=== PATIENT | male | born 1940 | race Caucasian/White ===

== ENCOUNTER 2022-08-24 18:44 | Emergency (ER) | payer MEDICARE, OTHER, SELFPAY ==
--- NOTE | ~2022-08-24 | CT_ITS ---
EXAMINATION: CT brain wo con DATE: 08/24/2022 19:24 INDICATION: fall on thinners . TECHNIQUE: Computed tomography (CT) of the head was performed without intravenous contrast. The mA wa s adjusted according to patient size. Iterative reconstruction technique was employed. The dose-lengt h product was 681.00 mGy-cm. COMPARISON: None. FINDINGS: No acute intracranial hemorrhage or extra-axial fluid collection. No hydrocephalus, intraparenchymal mass, or herniation. Enlarged pituitary gland. No acute ischemic infarct. Unremarkable dural venous sinus attenuation. No acute osseous abnormality. The aerated spaces are clear. Mild atrophy and chronic white matter change. Atherosclerotic intracranial calcification. Bilateral l ens replacements. IMPRESSION: No acute intracranial process. Pituitary enlargement, consider nonemergent outpatient MR of the pituitary without and with contrast for further evaluation. Reviewed, dictated and finalized at location K. IMPRESSION: No acute intracranial process. Pituitary enlargement, consider nonemergent outpatient MR of the pituitary with out and with contrast for further evaluation.
[2022-08-24 18:45] VITALS: BP 130/83; PULSE 104; RESP 18; TEMP 36.4; O2SAT 96
[2022-08-24] MEDS: CELLULOSE OXIDIZED 2 x 14 INCH 1 PKT XX ×3 (19:22→20:52)
--- NOTE | 2022-08-24 19:57 | ED.GENADULT ---
HPI - General Adult General Chief complaint: Head Injury Stated complaint: eye lac Time Seen by Provider: 08/24/22 19:02 History of Present Illness HPI narrative: This is an 82-year-old male presenting ED after a fall. [place] he tripped over a board and struck his head on a boat. He has a small laceration to his left eyebrow. No loss of consciousness, no other injuries, no medical complaints at this time. He is on Plavix for coronary artery disease. No numbness tingling weakness any extremity pain Related Data Home Medications Medication Instructions Recorded Confirmed acetaminophen 650 mg 650 mg PO Q6H 02/01/19 01/29/22 tablet,extended release (Tylenol Arthritis Pain) amlodipine 5 mg-valsartan 160 mg 1 tablet PO DAILY 02/01/19 01/29/22 tablet calcium citrate 315 mg-vitamin D3 1 tablet PO DAILY 02/01/19 01/29/22 5 mcg (200 unit) tablet (Calcium Citrate + D) clopidogrel 75 mg tablet 75 mg PO DAILY 02/01/19 01/29/22 isosorbide dinitrate 30 mg tablet 30 mg PO DAILY 02/01/19 01/29/22 metoprolol tartrate 100 mg tablet See Rx Instructions .Route .COMPLEX 02/01/19 01/29/22 cetirizine 10 mg tablet (Zyrtec) See Rx Instructions PO DAILY PRN 08/02/19 01/29/22 [id number] C-Mn 500 See Rx Instructions PO DAILY 08/02/19 01/29/22 mg-400 mg capsule (Glucosamine Chondroitin Maximum Strength) finasteride 5 mg tablet 5 mg PO DAILY 11/03/19 01/29/22 Allergies Allergy/AdvReac Type Severity Reaction Status Date / Time No Known Allergies Allergy Verified 08/18/22 10:40 [facility] Past Medical History Medical History CAD (coronary artery disease) GERD (gastroesophageal reflux disease) Family History Family History Father Hypertension, Onset Age: 76 Family history of cardiovascular disease, Onset Age: 76 Mother Family history of cardiovascular disease, Onset Age: 68 Social History Social History Smoking status: Never smoker Alcohol intake: never Substance use: never Exam Narrative: APPEARANCE: No apparent distress. Head: atraumatic. EYES: EOMI, NOSE: Atraumatic NECK: Trachea midline RESPIRATORY: No increased rate of breathing CARDIOVASCULAR: RRR, ABDOMINAL: Non-distended MUSCULOSKELETAl: No obvious deformities NEURO: Alert.Cranial nerves 2-12 grossly intact. Sensation light touch, motor function cerebellar function intact for 4 extremities. Gait exam was normal. SKIN: laceration to the lateral side of the left eyebrow with PSYCHIATRIC: Normal affect Course Vital Signs Vital signs: Vital Signs Temperature 97.5 F L 08/24/22 18:45 Pulse Rate 104 H 08/24/22 18:45 Respiratory Rate 18 08/24/22 18:45 Blood Pressure 130/83 08/24/22 18:45 Pulse Oximetry 96 08/24/22 18:45 Oxygen Delivery Room Air 08/24/22 18:45 Temperature 97.5 F L 08/24/22 18:45 Pulse Rate 76 08/24/22 21:39 Respiratory Rate 16 08/24/22 21:39 Blood Pressure 137/84 08/24/22 21:39 Pulse Oximetry 97 08/24/22 21:39 Oxygen Delivery Room Air 08/24/22 18:45 Medical Decision Making [facility] Narrative Medical decision making narrative: -Presentation: 82-year-old male with a fall on Plavix. CT has been ordered. Direct pressure is being applied his wound. The bleeding. 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 IOP 10, no injury on fluorescein stain. -Discussion of Management/Consultants: non
[2022-08-24] MEDS: LIDO 1%/EPINEPHRINE 1:100,000 20 ML VIAL 10 ML INFILTRATE (21:02)
[2022-08-24 21:39] VITALS: BP 137/84; PULSE 76; RESP 16; O2SAT 97
[2022-08-24] MEDS: FLUORESCEIN SOD 1 MG/STRIP EACH EYE (21:56)
[2022-08-24] MEDS: TETRACAINE HCL 0.5% OPHTH SOLN 4 ML BTL 1 DROP EACH EYE (21:56)
== END 2022-08-24 22:30 | disposition home or self-care (01) ==
PROVIDERS: Emergency Provider Emergency Medicine; PCP Emergency Medicine
DX: S01.112A Laceration without foreign body of left eyelid and periocular area, initial encounter (principal); I25.10 Atherosclerotic heart disease of native coronary artery without angina pectoris; Z79.01 Long term (current) use of anticoagulants; W01.0XXA Fall on same level from slipping, tripping and stumbling without subsequent striking against object, initial encounter; Y92.89 Other specified places as the place of occurrence of the external cause
CPT/HCPCS: 70450; 99284

== ENCOUNTER 2024-10-06 10:51 | Inpatient (IN) | payer MEDICARE, OTHER, SELFPAY ==
[2024-10-06] VITALS (13 sets, daily range): BP systolic 90–148; BP diastolic 43–83; PULSE 69–103; RESP 16–24; TEMP 36.6–36.9; O2SAT 97–99; BMI 27.8
--- NOTE | ~2024-10-06 | CT_ITS ---
EXAMINATION: CT abdomen pelvis w con DATE: 10/06/2024 13:28 INDICATION: Groin mass with pain. Lifting injury. TECHNIQUE: Computed tomography (CT) of the abdomen and pelvis was performed with 100 cc Omnipaque 350 intravenous contrast. The dose-length product was 1384.86 mGy-cm. Automated exposure control and ite rative reconstruction technique were employed. COMPARISON: None. FINDINGS: There is dependent atelectasis. There is calcified granuloma left lower lobe. No significan t pleural or pericardial effusion. There are multiple liver cysts. There are gallstones. There are ca lcified granulomas of the spleen. The pancreas, adrenal glands are unremarkable. There are low-densit y lesions in the left kidney, most likely cysts. There is a low-density hypovascular mass emanating f rom the lower pole of the right kidney measuring approximately 9 x 12.3 x 7.6 cm. There is large amou nt of fluid surrounding the mass extending into the perinephric space, retroperitoneum and into the p aracolic gutter. This mass extends inferiorly and ends just proximal to a right inguinal hernia that contains fat. There is mild right renal caliectasis. There is a left total hip arthroplasty. Severe l umbar spondylosis. Status post median sternotomy for CABG. IMPRESSION: 1. Hypovascular right renal mass at the lower pole with surrounding hemorrhage, suspicious for renal cell carcinoma with associated hemorrhage. Differential diagnosis includes renal cell carcinoma, angelita l angiomyolipoma, hemorrhagic renal cyst or cystic neoplasm, metastatic disease to the kidney, sarcom a. Recommend urological consultation. Consider correlation with contrast-enhanced MRI. 2: Right inguinal hernia containing fat. 3: Gallstones. 4: Mild right hydronephrosis. Reviewed, dictated and finalized at location A. IMPRESSION: 1. Hypovascular right renal mass at the lower pole with surrounding hemorrhage, suspicious for renal cell carcinoma with associated hemorrhage. Differential d iagnosis includes renal cell carcinoma, renal angiomyolipoma, hemorrhagic renal cyst or cystic neoplasm, metastatic disease to the kidney, sarcoma. Recommend urological consultation. Consider correlation with contrast-enhanced MRI. 2: Right inguinal hernia containing fat. 3: Gallstones. 4: Mild right hydronephrosis.
--- OUTSIDE RECORDS SUMMARY | 2024-10-06 10:53 | XMS_ITS | Encounter Summary ---
Author Organization [facility] Healthcare Address [address] [place] [address] Care Team Providers Care General Manager In Training Name Role Phone Gunnar Bahena MD Primary Care Provide r Encounter Details Date Type Department Care Team (Late st Contact Info) Description 12/02/2023 Orders Only [facility] Health Information Management [address] [place] [id number] Scanning, Provider Social History Tobacco Use Types Packs/Day Years Used Date Smoking Tobacco: Never Smokeless Tobacco: Never Alcohol Use Standard Drinks/Week Comments No 0 (1 standard drink = 0.6 oz pur e alcohol) Sex and Gender Information Value Date Recorded Sex Assigned at Not on file 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 Gender Identity Not on file Sexual Orientation Not on file documented as of this encounter Plan of Treatment Not on file documented as of this encounter Procedures Procedure Name Priority Date/Time Associated Diagnosis Comments SCAN - LABS 12/02/2023 documented in this encounter Results * SCAN - LABS (12/02/2023) us Provider Scanning Final Result documented in this encounter Visit Diagnoses Not on filedocumented in this encounter Care Teams General Manager In Training Relationship Specialty Start Date End Date Gunnar Bahena MD [address] [place] [address] PCP - General 05/29/16 documented as of this encounter
--- OUTSIDE RECORDS SUMMARY | 2024-10-06 10:53 | XMS_ITS | Clinical Summary ---
Author Organization [facility] [address] [facility] [address] Address [address] [place] [address] Care Team Providers Care Form Setter Name Role Phone Gunnar Bahena MD Primary Care Provide r Allergies Active Allergy Reactions Criticality Noted Date Comments Aspirin Other (See comments) Low 12/29/2016 Gastric ulcer Medications tamsulosin (FLOMAX) 0.4 mg capsule,extended release 24hr take 1 capsule by oral route every day 1/2 hour following the same meal each day 0 0 3 Active cetirizine (ZyrTEC) 10 mg tablet take 1 tablet by oral route every day 0 0 3 Active metFORMIN (GLUCOPHAGE) 500 mg tablet take 1 Tablet by oral route 2 times every day with morning and evening meals [address] (PROTONIX) 20 mg EC tablet take 1 Tablet by oral route 2 times every day 90 1 6 Active atorvastatin (LIPITOR) 40 mg tablet take 1 tablet by oral route every day 0 0 3 Active calcium carbonate (CALCIUM 600 ORAL) Take 1 tablet by mouth daily. Active glucosamine-cedric droitin 500-400 mg tablet Take 1 tablet by mouth 2 (two) times a day Active acetaminophen ER (TYLENOL) 650 mg 8 hr tablet Take 1 tablet (650 mg total) by mouth every 8 (eight) hours as needed for pain Active finasteride (PROSCAR) 5 mg tablet TK 1 T PO D 0 Active metoprolol tartrate (LOPRESSOR) 50 mg immediate release tablet TAKE 1 TABLET(50 MG) BY MOUTH TWICE DAILY 180 tablet 3 4 Active isosorbide mononitrate ER (IMDUR) 30 mg 24 hr tablet TAKE 1 TABLET(30 MG) BY MOUTH DAILY 90 tablet 3 4 Active amlodipine-valsa rtan (EXFORGE) 5-160 mg per tablet TAKE 1 TABLET BY MOUTH DAILY 90 tablet 2 5 Active clopidogreL (PLAVIX) 75 mg tablet TAKE 1 TABLET(75 MG) BY MOUTH DAILY 90 tablet 2 5 Active Active Problems Problem Noted Date Diagnosed Date Pulmonary hypertension 03/27/2022 Gastroesophageal reflux disease without esophagi tis 07/21/2018 Coronary artery disease of n ative artery of [place] heart with stable angina pectoris 07/05/2017 Hyperlipidemia LDL goal <70 12/29/2016 History of bleeding ulcers 08/11/2016 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 Essential hypertension 05/15/2014 Overview (06/05/2016): Essential hypertension Adiposity 05/15/2014 Overview (06/05/2016): Obesity Resolved Problems Problem Noted Date Diagnosed Date Resolved Date Dyslipidemia 08/11/2016 03/21/2020 Encounters Date Type Department Care Team Description 08/08/2024 Orders Only [facility] Cardiology [address] [place] [address] Provider, MD Monik from Last 3 Months Surgical History Surgery Date Site/Laterality Comments CORONARY ARTERY BYPASS GRAFT Coronary Artery Bypass Graft HERNIA REPAIR hernia repair Medical History Medical History Date Comments Gastroesophageal reflux disease GERD Osteoarthritis Osteoarthritis Hx Other Medical BPH Hx Other Medical history of trig eminal neuralgia Hx Other Medical Osteoarthritis, trigeminal neuralgia, BPH, HTN, DL Hx Other Medical Seizure, GERD, sinusitis Family History Medical History Relation Name Comments Coronary artery disease Father 2 Tina nary Artery Disease; Coronary artery disease Mother 2 Tina nary Artery Disease; Relation Name Status Comments Father 1 Alive Father 2 Mother 1 Alive Mother 2 Social History Tobacco Use Types Packs/Day Years Used Date Smoking Tobacco: Never Smokeless Tobacco: Never Tobacco Cessation:Counseling Given: Not Answered Alcohol Use Standard Drinks/Week Comments No 0 (1 standard drink = 0.6 oz pur e alcohol) Sex and Gender Information Value Date Recorded Sex Assigned at Not on file 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 Gender Identity Not on file Sexual Orientation Not on file Obstetrics History Last Filed Vital Signs Vital Sign Reading Time Taken Comments Blood Pressure 130/88 05/10/2024 8:53 AM CDT Pulse 65 05/10/2024 8:53 AM CDT Temperature - - Respiratory Rate 16 08/11/2016 9:02 AM CDT Oxygen Saturation 96% 05/10/2024 8:53 AM CDT Inhaled Oxygen Concentration - - Weight 97.1 kg (214 lb) 05/10/2024 8:53 AM CDT Height 182.9 cm (6') 05/10/2024 8:53 AM CDT Body Mass Index 29.02 05/10/2024 8:53 AM CDT Plan of Treatment Health Maintenance Due Date Last Done Comments Depression Screening 1941 Fall Risk Assessment 1941 DTaP/Tdap/Td Vaccine (1 - Tdap) 1952 Hepatitis B Screening 1959 Zoster Vaccine (1 of 2) 1991 Well Visit 65+ 2006 Pneumococcal vaccine 65+ (2 of 2 - PPSV23) 02/27/2019 01/02/2019 Influenza Vaccine (#1) 2024 9, 12/01/2017, 12/24/2016, Additional history exists Procedures Procedure Name Priority Date/Time Associated Diagnosis Comments LIPID PANEL Routine 08/03/2024 4:23 PM CDT from Last 3 Months Results * (ABNORMAL) Lipid panel (08/03/2024 4:23 PM CDT) SCRIBED Cholesterol, Total 102 30 - 199 mg/dL [facility] SCRIBED Triglycerides 92 <=149 mg/dL [facility] SCRIBED HDL 36(A) >=40 mg/dL [facility] SCRIBED LDL 48 <=129 mg/dL [facility] Scribed Non-HDL Cholesterol [facility] Comment:Not performed by lab . SCRIBED Total Cholesterol/HDL Ratio 102 NONE [facility] Blood us Historical Provider LAB BLOOD ORDERABLES Edit ed Result - Final [facility] from Last 3 Months Insurance MEDICARE [facility] MEDICARE [facility] Care Teams Form Setter Relationship Specialty Start Date End Date Gunnar Bahena MD [address] [place], [place] [id number] PCP - General 05/29/16
--- NOTE | 2024-10-06 11:31 | ED.LOWEXIN ---
HPI - Extremity Injury (Lower) General Chief Complaint: Extremity Injury, Lower Stated Complaint: groin pain Time Seen by Provider: 10/06/24 11:20 Source: patient and RN notes reviewed Mode of arrival: ambulatory Limitations: no limitations History of Present Illness HPI Narrative: 84-year-old male presents to the ER complaining of right groin pain for 2 days. Patient said over the weekend he was lifting a cooler out of a boat does not believe that he injured himself at that time. Since then eyes developed right groin pain that is worse with sitting up or walking around. Patient says the pain subsides when he lies flat. Patient denies any urinary symptoms, fevers, body aches, chills, nausea, vomiting, diarrhea, bloody stools, or any other symptoms. Related Data Home Medications ?Medication ?Instructions ?Recorded ?Confirmed ?Last Taken ?Type amlodipine 5 mg-valsartan 160 mg 1 tablet PO DAILY 02/01/19 10/06/24 Unknown History tablet calcium 315 mg (as 1 tablet PO DAILY 02/01/19 10/06/24 Unknown History citrate)-vitamin D3 5 mcg (200 unit) tablet (Calcium Citrate + D) clopidogrel 75 mg tablet 75 mg PO DAILY 02/01/19 10/06/24 10/05/24 History isosorbide dinitrate 30 mg tablet 30 mg PO HS 02/01/19 10/06/24 10/05/24 History metoprolol tartrate 100 mg tablet 50 mg PO Q12H 02/01/19 10/06/24 Unknown History cetirizine 10 mg tablet (Zyrtec) 10 mg PO 08/02/19 10/06/24 10/05/24 History [id number] C-Mn 500 See Rx Instructions PO DAILY 08/02/19 10/06/24 10/05/24 History mg-400 mg capsule (Glucosamine Chondroitin Maximum Strength) finasteride 5 mg tablet 5 mg PO 11/03/19 10/06/24 10/05/24 History atorvastatin 40 mg tablet 40 mg PO QPM 10/06/24 10/06/24 10/05/24 History pantoprazole 40 mg tablet,delayed 40 mg PO 10/06/24 10/06/24 10/05/24 History release tamsulosin 0.4 mg capsule 0.4 mg PO QPM 10/06/24 10/06/24 10/05/24 History Allergies Allergy/AdvReac Type Severity Reaction Status Date / Time aspirin AdvReac Intermediate Abdominal Verified 10/06/24 16:08 Pain Review of Systems Review of Systems: CONSTITUTIONAL: Denies fever, chills, or sweats. EYES: Denies visual changes, redness, or discharge. ENT: Denies rhinorrhea, congestion, sore throat, or otalgia. CARDIOVASCULAR: Denies chest pain, palpitations, or edema. RESPIRATORY: Denies cough or dyspnea. GASTROINTESTINAL: Denies abdominal pain, nausea, vomiting, or diarrhea. Positive for groin pain. GENITOURINARY: Denies dysuria or hematuria. SKIN: Denies rash or itching. MUSCULOSKELETAL: Denies back pain, joint pain, or myalgia. NEUROLOGIC: Denies headache, numbness, or weakness. PSYCHIATRIC: Denies anxiety or depression. All other systems reviewed are negative, except as documented in HPI. PENDING SALE TO [facility] Past Medical History Medical History SOB (shortness of breath) Gastric ulcer due to nonsteroidal antiinflammatory drug (NSAID) therapy Atherosclerosis of coronary artery bypass graft(s) without angina pectoris Chronic pain of both shoulders Vitamin D deficiency PUD (peptic ulcer disease) Primary osteoarthritis of both hips Polyosteoarthritis, unspecified Pain in right shoulder Other chronic pain Need for pneumococcal vaccine Atypical mole Visit for suture removal URI with cough and congestion GERD (gastroesophageal reflux disease) CAD (coronary artery disease) Family History Family History Father Hypertension, Onset Age: 76 Family history of cardiovascular disease, Onset Age: 76 Mother Family history of cardiovascular disease, Onset Age: 68 Social History Social History Smoking status: Never smoker Second hand tobacco smoke exposure: Yes Alcohol intake: former Substance use: never Substance use type: does not use Lack of Transportation: No Lack of Food: Never True Current Housing: I Do Not Have Housing Concerned About Future Housing: No Difficulty Paying Gas/Electric Bills: No Difficulty Paying for Meds: No Currently Unemployed: No Education: High School Diploma/GED Difficulty w/ Childcare or Family Care: No Spiritual care concerns: No Comments At the time of my signature, I reviewed and agree with the nursing past medical, surgical, social, and family history. There is no relevant family history pertinent to the patient complaint. Exam Narrative: GENERAL: This is a well-nourished, well-developed adult, in no apparent distress. They are non ill-appearing, nontoxic appearing. HEAD: normocephalic, atraumatic. EYES: Sclera clear/white. Conjunctiva normal. Vision is grossly intact. Extraocular movements intact EARS: External ears normal, Hearing grossly intact. NOSE: External nose normal THROAT: Mucous membranes moist, NECK: Neck supple, CARDIOVASCULAR: Regular rate and rhythm without murmurs, gallops, or rubs. RESPIRATORY: Clear to auscultation. Breath sounds equal bilaterally. No wheezes, rales, or rhonchi. GASTROINTESTINAL: Abdomen soft, tenderness to palpation right lower pelvis suprapubic region. Nondistended. Bowel sounds are active. No hepato-splenomegaly, or palpable masses. No guarding. There is swelling to the right groin. No bruising. SKIN: warm, Dry, intact with no suspicious lesions or rash, good texture and turgor. NEURO: awake, alert, and oriented to person, place and time. There were no obvious focal neurologic abnormalities. EXTREMITIES: No joint tenderness, effusion, or edema noted. Course Course Emergency Course: Portions of this record may have been created with voice recognition software Vital Signs Vital signs: Vital Signs Temperature 98.0 F 10/06/24 10:59 Pulse Rate 69 10/06/24 10:59 Respiratory Rate 18 10/06/24 10:59 Blood Pressure 148/76 H 10/06/24 10:59 Pulse Oximetry 98 10/06/24 10:59 Oxygen Delivery Room Air 10/06/24 10:59 Temperature 98.4 F 10/07/24 07:57 Pulse Rate 67 10/07/24 07:57 Respiratory Rate 20 10/07/24 07:57 Blood Pressure 121/69 10/07/24 07:57 Pulse Oximetry 97 10/07/24 07:57 Oxygen Delivery Room Air 10/07/24 03:57 Reviewed MDM - Extremity Injury (Lower) MDM Narrative Medical decision making narrative: Patient may have possible hernia. Will obtain imaging and lab work to assess his groin pain. Patient has elevated bilirubin. Hemoglobin 9.9. However unable to compare hemoglobin to previous lab work. Urine negative for any signs infection, no blood in urine. 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 Patient hemodynamically stable. Spoke with Dr. Sebastian from Urology who recommends observation to monitor hemoglobin and hematocrit, as he believes there is a low suspicion for active hemorrhage of the renal cell carcinoma, and he will see the patient in the hospital and will have a follow-up outpatient from there. Called hospitalist and spoke with nurse practitioner Kareen who agrees to admit patient to the IMU. Differential Diagnosis Differential diagnosis: Likely other (Hernia, hematoma, incarcerated hernia, appendicitis) Lab Data 10/07/24 06:12 10/07/24 06:12 Labs: Lab Results 10/06/24 10/06/24 Range/Units 11:40 11:48 WBC 9.0 (4.5-10.0) K/mm3 RBC 3.11 L (4.6-6.20) M/mm3 Hgb 9.9 L (14.0-18.0) g/dL Hct 30.0 L (42.0-52.0) % MCV 96.5 (80-100) fl MCH 31.8 (26-34) pg MCHC 33.0 (32-36) g/dl RDW 13.8 (11.5-14.5) % Plt Count 188 (150-375) k/mm3 MPV 9.7 (7.4-10.4) fl Immature Gran % (Auto) 0.8 H (0-0.5) % Neut % (Auto) 80.2 H (45.5-73.1) % Lymph % (Auto) 6.1 L (18.3-44.2) % Emery % (Auto) 12.2 H (2.6-8.5) % Eos % (Auto) 0.3 (0-4.4) % Baso % (Auto) 0.4 (0.2-1.2) % Lymph # (Auto) 0.55 L (0.9-3.2) K/mm3 Emery # (Auto) 1.1 H (0.1-0.6) K/mm3 Eos # (Auto) 0.0 (0-0.3) K/mm3 Baso # (Auto) 0.0 (0.0-0.1) K/mm3 Abs Immat Gran (auto) 0.07 H (0.00-0.031) K/mm3 Absolute Neuts (auto) 7.2 H (1.3-6.7) K/mm3 Absolute Nucleated RBC 0.000 (0.0-0.012) K/mm3 Nucleated RBC % 0.0 (0.0-0.2) % Sodium 135 L (137-145) mmol/L Potassium 4.0 (3.4-5.0) mmol/L Chloride 102 (98-107) mmol/L Carbon Dioxide 25 (22-30) mmol/L Anion Gap 8 (4-12) mmol/L BUN 20 (9-20) mg/dL Creatinine 1.15 (0.7-1.3) mg/dL Estim Creat Clear Calc 60 ml/min Estimated GFR > 60 (59 - ) Glucose 123 H (65-110) mg/dL Calcium 8.6 (8.4-10.2) mg/dL Total Bilirubin 3.4 H (0.2-1.3) mg/dL AST 21 (17-59) U/L ALT 12 (6-50) U/L Alkaline Phosphatase 50 (38-126) U/L Total Protein 6.1 L (6.3-8.2) g/dL Albumin 3.7 (3.5-5.1) g/dL Urine Color Yellow (Yellow) Urine Appearance Clear (Clear) Urine pH 5.5 (5.0-9.0) Ur Specific [place] 1.012 (1.001-1.035) Urine Protein Negative (Negative) mg/dL Urine Glucose (UA) Negative (Negative) mg/dL Urine Ketones Negative (Negative) mg/dL Ur Blood (Man) Negative (Negative) Urine Nitrate Negative (Negative) Urine Bilirubin Negative (Negative) Urine Urobilinogen 0.2 (<2.0) mg/dL Leukocyte Esterase Rfl Negative (Negative) MARY JO/UL Imaging Data Radiologist's impression: ITS Impressions Abdomen/Pelvis CT 10/06/24 13:34 IMPRESSION: 1. Hypovascular right renal mass at the lower pole with surrounding hemorrhage, suspicious for renal cell carcinoma with associated hemorrhage. Differential diagnosis includes renal cell carcinoma, renal angiomyolipoma, hemorrhagic renal cyst or cystic neoplasm, metastatic disease to the kidney, sarcoma. Recommend urological consultation. Consider correlation with contrast-enhanced MRI. 2: Right inguinal hernia containing fat. 3: Gallstones. 4: Mild right hydronephrosis. Critical Care Time Critical Care Time Critical Care Time: No Discharge Plan Discharge Clinical Impression: Hernia, inguinal, right, Hydronephrosis of right kidney, Gallstones Renal cell carcinoma Qualifiers: Laterality: right Qualified Code(s): C64.1 - Malignant neoplasm of right kidney, except renal pelvis Patient Disposition: Still a Patient Condition: Stable Time of Disposition: 14:39
[2024-10-06 12:03] LABS: Add Urine Microscopic? NO; Appearance Urine Clear (Clear); Glucose Urine UA Negative (Negative); Leukocyte Esterase Ur Negative LEU/UL (Negative); Nitrate Urine Negative (Negative); Specific Grav Ur 1.012 (1.001-1.035)
[2024-10-06 12:06] LABS: Hematocrit 30.0 % (42.0-52.0); Hemoglobin 9.9 g/dL (14.0-18.0); Immature Granulocyte Percent A 0.8 % (0-0.5); Lymphocytes Absolute Auto 0.55 K/mm3 (0.9-3.2); Mean Corpuscular HGB Conc 33.0 g/dl (32-36); Mean Corpuscular Hemoglobin 31.8 pg (26-34); Mean Corpuscular Volume 96.5 fl (80-100); Nucleated Red Blood Cells Absolute Auto 0.000 K/mm3 (0.0-0.012); Nucleated Red Blood Cells Perc 0.0 % (0.0-0.2); Platelet Count Result 188 k/mm3 (150-375); Red Blood Count 3.11 M/mm3 (4.6-6.20); White Blood Count 9.0 K/mm3 (4.5-10.0)
[2024-10-06 12:14] LABS: Alanine Aminotransferase 12 U/L (6-50); Albumin Level 3.7 g/dL (3.5-5.1); Alkaline Phosphatase 50 U/L (38-126); Anion Gap 8 mmol/L (4-12); Aspartate Amino Transferase 21 U/L (17-59); Bilirubin,Total 3.4 mg/dL (0.2-1.3); Blood Urea Nitrogen 20 mg/dL (9-20); Calcium 8.6 mg/dL (8.4-10.2); Carbon Dioxide 25 mmol/L (22-30); Chloride 102 mmol/L (98-107); Estimated CRCL calculation 60 ml/min; Estimated Glomerular Filt Rate > 60; Glucose 123 mg/dL (65-110); Potassium 4.0 mmol/L (3.4-5.0); Sodium 135 mmol/L (137-145); Total Protein 6.1 g/dL (6.3-8.2)
--- OUTSIDE RECORDS SUMMARY | 2024-10-06 12:22 | XMS_ITS ---
Author Organization Unknown ENCOUNTERS Encounter Performer Location Date Diagnosis Diagnosis Status Emergency [place] [address] [place] [id number] VAISHALI *Note: Encounters from your own facility or health system may be excluded. Allergies, Adverse Reactions, Alerts Allergen Type Severity Identification Date Medications Name Date Quantity Days Supplied GPI Number
--- OUTSIDE RECORDS SUMMARY | 2024-10-06 12:22 | XMS_ITS | Clinical Summary ---
Author Organization [facility] [address] [facility] [address] Address [address] [place] [address] Care Team Providers Care Leadership Program Internship Name Role Phone Gunnar Bahena MD Primary [...] artery disease of n ative artery of [place] heart with stable angina pectoris 07/05/2017 Hyperlipidemia LDL goal <70 12/29/2016 History of bleeding ulcers 08/11/2016 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 Essential hypertension 05/15/2014 Overview (06/05/2016): Essential hypertension Adiposity 05/15/2014 Overview (06/05/2016): Obesity Resolved Problems Problem Noted Date Diagnosed Date Resolved Date Dyslipidemia 08/11/2016 03/21/2020 Encounters Date Type Department Care Team Description 08/08/2024 Orders Only [facility] Cardiology [address] [place] [address] Provider, MD Monik from Last [...] on file 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
--- OUTSIDE RECORDS SUMMARY | 2024-10-06 12:22 | XMS_ITS | Encounter Summary ---
Author Organization [facility] Healthcare Address [address] [place] [address] Care Team Providers Care Magnetic Prospecting Operator Name Role Phone Gunnar Bahena MD Primary Care Provide r Encounter Details Date Type Department Care Team (Late st Contact Info) Description 12/02/2023 Orders Only [facility] Health Information Management [address] [place] [id number] Scanning, Provider Social History Tobacco Use Types Packs/Day Years Used Date Smoking Tobacco: Never Smokeless Tobacco: Never Alcohol Use Standard Drinks/Week Comments No 0 (1 standard drink = 0.6 oz pur e alcohol) Sex and Gender Information Value Date Recorded Sex Assigned at Not on file 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
[2024-10-06] MEDS: fentaNYL CITRATE INJ (*CRX) 100 MCG/2 ML VIAL 50 MCG IV PUSH (14:24)
[2024-10-06 14:47] LABS: INR 1.2; Partial Thromboplastin Time 30.1 Seconds (22.3-36.8); Prothrombin Time 14.7 Seconds (11.1-14.7)
--- NOTE | 2024-10-06 15:14 | P.HP_ITS ---
H&P: HPI History of Present Illness Date/Time: 10/06/24 15:14 Chief Complaint: Right groin pain Narrative: 84-year-old male past medical history of gastric ulcer, chronic pain, and CAD presents the hospital with right groin pain. Patient complains of his hernia hurting him so he came into the emergency room. Patient states that last weekend he lifted a heavy cooler and may have over exerted himself. He states that now he has right groin pain whenever he walks or does a lot activities. He states that lying in better after pain meds he has no pain. Patient denies hematuria, blood in his stool nausea vomiting lightheadedness. Patient has no complaints Lab work in the ED shows hemoglobin of 9.9, no prior hemoglobin to compare to, sodium of 135, glucose of 123, total bili of 3.4, UA negative for infection. Abdomen pelvis CT show hypovascular right renal mass at the lower pole with surrounding hemorrhage, suspicious for renal cell carcinoma with associated hemorrhage measuring approximately 9 x 12.3 x 7.6 cm, pre inguinal hernia containing fat, gallstones, and mild right hydronephrosis. Review of Systems Review of Systems: 12 systems were reviewed and are negativ e except for as per HPI. [facility] Past Medical History Medical History SOB (shortness of breath) Gastric ulcer due to nonsteroidal antiinflammatory drug (NSAID) therapy Atherosclerosis of coronary artery bypass graft(s) without angina pectoris Chronic pain of both shoulders Vitamin D deficiency PUD (peptic ulcer disease) Primary osteoarthritis of both hips Polyosteoarthritis, unspecified Pain in right shoulder Other chronic pain Need for pneumococcal vaccine Atypical mole Visit for suture removal URI with cough and congestion GERD (gastroesophageal reflux disease) CAD (coronary artery disease) Family History Family History Father Hypertension, Onset Age: 76 Family history of cardiovascular disease, Onset Age: 76 Mother Family history of cardiovascular disease, Onset Age: 68 Social History Social History Smoking status: Never smoker Second hand tobacco smoke exposure: Yes Alcohol intake: former Substance use: never Substance use type: does not use Lack of Transportation: No Lack of Food: Never True Current Housing: I Do Not Have Housing Concerned About Future Housing: No Difficulty Paying Gas/Electric Bills: No Difficulty Paying for Meds: No Currently Unemployed: No Education: High School Diploma/GED Difficulty w/ Childcare or Family Care: No Spiritual care concerns: No Meds Home Medications and Allergies Home Medications ?Medication ?Instructions ?Recorded ?Confirmed ?Type amlodipine 5 mg-valsartan 160 mg 1 tablet PO DAILY 02/01/19 10/06/24 History tablet calcium 315 mg (as 1 tablet PO DAILY 02/01/19 10/06/24 History citrate)-vitamin D3 5 mcg (200 unit) tablet (Calcium Citrate + D) clopidogrel 75 mg tablet 75 mg PO DAILY 02/01/19 10/06/24 History isosorbide dinitrate 30 mg tablet 30 mg PO HS 02/01/19 10/06/24 History metoprolol tartrate 100 mg tablet 50 mg PO Q12H 02/01/19 10/06/24 History cetirizine 10 mg tablet (Zyrtec) 10 mg PO HS 08/02/19 10/06/24 History [id number] C-Mn 500 See Rx Instructions PO DAILY 08/02/19 10/06/24 History mg-400 mg capsule (Glucosamine Chondroitin Maximum Strength) finasteride 5 mg tablet 5 mg PO HS 11/03/19 10/06/24 History metformin 500 mg tablet See Rx Instructions .Route 02/18/24 10/06/24 Rx .COMPLEX #90 tabs atorvastatin 40 mg tablet 40 mg PO QPM 10/06/24 10/06/24 History pantoprazole 40 mg tablet,delayed 40 mg PO HS 10/06/24 10/06/24 History release tamsulosin 0.4 mg capsule 0.4 mg PO QPM 10/06/24 10/06/24 History Allergies Allergy/AdvReac Type Severity Reaction Status Date / Time aspirin AdvReac Intermediate Abdominal Verified 10/06/24 16:08 Pain Vital Signs Vital Signs - 24 hr 10/06/24 10:59 10/06/24 14:04 Temperature 98.0 F Pulse Rate 69 77 Respiratory Rate 18 16 Blood Pressure 148/76 H 142/83 H Pulse Oximetry 98 98 Oxygen Delivery Room Air Exam Narrative: General: well appearing, appears stated age. HEENT: normocephalic, atraumatic. Mucous membranes moist. EOMI, PERRLA, bilateral sclera anicteric, no conjunctival injection. Neck supple without JVD, lymphadenopathy, or bruit. Respiratory: clear to ascultation bilaterally. No rales/rhonic/wheezes. Cardiovascular: Regular rate and rhythm, normal S1-S2 upon ascultation. No murmurs, rubs, or clicks. PMI is nondisplaced, capillary refill less than 3 second. Abdomen: Soft, round, no pulsatile masses, nondistended and nontender. No rebound, no guarding. No CVA tenderness, no hepatosplenomegaly. Bowel sounds present to all four quadrants. No high pitch or tinkling sounds, resonant to percussion. Extremities: No cyanosis, clubbing, or edema present. Pulses are palpable 2/2. Active ROM to all four extremities. Neuro: Alert and orientated x 4. PERRLA. Cranial nerves 2-12 intact without focal deficit. Skin: Warm, dry, and intact, without rash, erythema, or lesion. Psych: pleasant, cooperative, normal speech, normal affect, no hallucinations, no dysarthia H&P: Results Labs Labs: Short CBC 10/06/24 Range/Units 11:40 WBC 9.0 (4.5-10.0) K/mm3 Hgb 9.9 L (14.0-18.0) g/dL Hct 30.0 L (42.0-52.0) % Plt Count 188 (150-375) k/mm3 BMP 10/06/24 11:40 Sodium 135 L Potassium 4.0 Chloride 102 Carbon Dioxide 25 BUN 20 Creatinine 1.15 Glucose 123 H Calcium 8.6 Liver Function 10/06/24 Range/Units 11:40 Total Bilirubin 3.4 H (0.2-1.3) mg/dL AST 21 (17-59) U/L ALT 12 (6-50) U/L Alkaline Phosphatase 50 (38-126) U/L Albumin 3.7 (3.5-5.1) g/dL Urine 10/06/24 Range/Units 11:48 Urine Color Yellow (Yellow) Urine Appearance Clear (Clear) Urine pH 5.5 (5.0-9.0) Ur Specific [place] 1.012 (1.001-1.035) Urine Protein Negative (Negative) mg/dL Urine Glucose (UA) Negative (Negative) mg/dL Assessment and Plan Assessment and plan (1) Acute blood loss anemia: Code(s): D62 - Acute posthemorrhagic anemia Status: Acute Assessment and Plan: Hypovascular right renal mass at the lower pole with surrounding hemorrhage, suspicious for renal cell carcinoma with associated hemorrhage measuring approximately 9 x 12.3 x 7.6 cm. Likely injury from last weekend and not still actively bleeding. Hemoglobin q.6 Transfuse for hemoglobin less than 7 or symptomatic Type and screen Okay for diet (2) Hematoma: Code(s): T14.8XXA - Other injury of unspecified body region, initial encounter Status: Acute Assessment and Plan: Intraperitoneal hematoma seen on CT likely due to renal cell carcinoma Likely injury from last weekend and not still actively bleeding. See plan above (3) Renal cell carcinoma: Qualifiers: Laterality: right Qualified Code(s): C64.1 - Malignant neoplasm of right kidney, except renal pelvis Code(s): C64.9 - Malignant neoplasm of unspecified kidney, except renal pelvis Status: Acute Assessment and Plan: Urology consulted Urology does not believe that the patient is still currently bleeding, states that the patient can be monitored overnight for hemoglobin and then discharged in the morning if there is no drop in hemoglobin. If there is a drop in hemoglobin overnight then the patient can go to IR. Patient will follow-up outpatient with Urology to determine when is best for surgery. (4) HTN (hypertension): Code(s): I10 - Essential (primary) hypertension Status: Acute Assessment and Plan: Hold antihypertensive medications tonight (5) CAD (coronary artery disease): Code(s): I25.10 - Atherosclerotic heart disease of [place] coronary artery without angina pectoris Status: Acute Assessment and Plan: Hold Plavix Continue isosorbide (6) Diabetes mellitus: Qualifiers: Diabetes mellitus complication status: without complication Diabetes mellitus chcf insulin use: without termite technician use Diabetes mellitus type: type 2 Qualified Code(s): E11.9 - Type 2 diabetes mellitus without complications Code(s): E11.9 - Type 2 diabetes mellitus without complications Status: Acute Assessment and Plan: Hold metformin while patient was hospital in case he needs contrast Accu-Cheks a.c. HS Low-dose SSI (7) Hydronephrosis of right kidney: Code(s): N13.30 - Unspecified hydronephrosis Status: Acute Assessment and Plan: Urology consulted (8) BPH (benign prostatic hyperplasia): Code(s): N40.0 - Benign prostatic hyperplasia without lower urinary tract symptoms Status: Acute Assessment and Plan: Continue home medication Quality VTE Prophylaxis VTE prophylaxis: mechanical ordered If No VTE Prophylaxis Answer both mechanical and pharmacologic: Reason no pharmacologic proph: medical contraindication Hospitalist MIPS Advance Care Plan I have confirmed that the patient's Advanced Care Plan is present, code status is documented, or surrogate decision maker is listed in patient medical record.: Yes Medication Reconciliation I have utilized all available resources to obtain, update and review the patients current medications (includes all prescriptions, OTC, herbals, cannabis, and nutritional supplements).: Yes
[2024-10-06] MEDS: HYDROcodone/acetaminophen (*CRX) 5-325 MG TABLET 1 TAB PO (15:46)
--- NOTE | 2024-10-06 15:56 | ADMGEN ---
This patient, Jesse Churchill, was admitted to IMU Room 211-01 at approximately 1550. Patient/family oriented to hospital policies and general routines including ID bracelet, bed and alarms, visiting hours, pain management, procedures, bathroom and other care routines, personal items, smoking policy, room service/diet, and visiting hours. Information on how to activate the Rapid Response Team has been discussed. Patient/Family are encouraged to report perceived risks to care and to ask questions if they do not understand what they are told or what they should do.
--- NOTE | 2024-10-06 16:51 | P.CONUR_ITS ---
Assessment and Plan Assessment and plan (1) Hematoma: Code(s): T14.8XXA - Other injury of unspecified body region, initial encounter Status: Acute (2) Renal mass: Code(s): N28.89 - Other specified disorders of kidney and ureter Status: Acute (3) Neoplasm of kidney: Code(s): D49.519 - Neoplasm of unspecified behavior of unspecified kidney Status: Acute (4) Renal hematoma: Code(s): S37.019A - Minor contusion of unspecified kidney, initial encounter Status: Acute Plan Has been admitted to the hospital service for monitoring of his hemoglobin hematocrit. If drops or he becomes unstable procedure of choice would be embolization. I believe this is unlikely given his overall clinical picture at this point. He appears quite stable. If hemoglobin hematocrit remained stable can likely be discharged home. He will need workup for the renal mass. Likelihood is there is underlying renal mass such as renal cell carcinoma. Discussed with patient he may ultimately require nephrectomy. We will follow along Urology Consult Note HPI Date Seen: 10/06/24 Requesting Physician: Phu Aguilar MD Primary Care Provider: Gunnar Bahena MD Consult Narrative Narrative: Jesse Churchill is a 84 year old male who appears younger and healthier than his stated age. He was doing some heavy lifting approximately 1 week ago and felt he might have hurt himself. He noted groin pain and thought he had an inguinal hernia. He initially sought care here in the emergency room. He underwent a CT scan which showed a hematoma around the kidney likely secondary to an underlying renal mass. He does not complain of flank pain. He has no visible blood in the urine. He is not complaining of dizziness or cardiovascular symptoms. Blood counts were done and documented in the chart. There is no baseline hemoglobin hematocrit to compare. He is being admitted for follow-up overnight to monitor the there is no ongoing hemorrhage. Will undoubtedly need further workup for renal mass once acute situation resolved PMFSH Past Medical History Medical History SOB (shortness of breath) Gastric ulcer due to nonsteroidal antiinflammatory drug (NSAID) therapy Atherosclerosis of coronary artery bypass graft(s) without angina pectoris Chronic pain of both shoulders Vitamin D deficiency PUD (peptic ulcer disease) Primary osteoarthritis of both hips Polyosteoarthritis, unspecified Pain in right shoulder Other chronic pain Need for pneumococcal vaccine Atypical mole Visit for suture removal URI with cough and congestion GERD (gastroesophageal reflux disease) CAD (coronary artery disease) Family History Family History Father Hypertension, Onset Age: 76 Family history of cardiovascular disease, Onset Age: 76 Mother Family history of cardiovascular disease, Onset Age: 68 Social History Social History Smoking status: Never smoker Second hand tobacco smoke exposure: Yes Alcohol intake: former Substance use: never Substance use type: does not use Lack of Transportation: No Lack of Food: Never True Current Housing: I Do Not Have Housing Concerned About Future Housing: No Difficulty Paying Gas/Electric Bills: No Difficulty Paying for Meds: No Currently Unemployed: No Education: High School Diploma/GED Difficulty w/ Childcare or Family Care: No Spiritual care concerns: No Meds Home Medications and Allergies Home Medications ?Medication ?Instructions ?Recorded ?Confirmed ?Type amlodipine 5 mg-valsartan 160 mg 1 tablet PO DAILY 02/01/19 10/06/24 History tablet calcium 315 mg (as 1 tablet PO DAILY 02/01/19 10/06/24 History citrate)-vitamin D3 5 mcg (200 unit) tablet (Calcium Citrate + D) clopidogrel 75 mg tablet 75 mg PO DAILY 02/01/19 10/06/24 History isosorbide dinitrate 30 mg tablet 30 mg PO HS 02/01/19 10/06/24 History metoprolol tartrate 100 mg tablet 50 mg PO Q12H 02/01/19 10/06/24 History cetirizine 10 mg tablet (Zyrtec) 10 mg PO HS 08/02/19 10/06/24 History [id number] C-Mn 500 See Rx Instructions PO DAILY 08/02/19 10/06/24 History mg-400 mg capsule (Glucosamine Chondroitin Maximum Strength) finasteride 5 mg tablet 5 mg PO HS 11/03/19 10/06/24 History metformin 500 mg tablet See Rx Instructions .Route 02/18/24 10/06/24 Rx .COMPLEX #90 tabs atorvastatin 40 mg tablet 40 mg PO QPM 10/06/24 10/06/24 History pantoprazole 40 mg tablet,delayed 40 mg PO HS 10/06/24 10/06/24 History release tamsulosin 0.4 mg capsule 0.4 mg PO QPM 10/06/24 10/06/24 History Allergies Allergy/AdvReac Type Severity Reaction Status Date / Time aspirin AdvReac Intermediate Abdominal Verified 10/06/24 16:08 Pain Vital Signs Vital Signs - 24 hr 10/06/24 10:59 10/06/24 14:04 10/06/24 15:28 Temperature 98.0 F Pulse Rate 69 77 78 Respiratory Rate 18 16 18 Blood Pressure 148/76 H 142/83 H 107/75 Pulse Oximetry 98 98 98 Oxygen Delivery Room Air 10/06/24 16:04 Temperature 98.4 F Pulse Rate 73 Respiratory Rate 24 H Blood Pressure 141/65 H Pulse Oximetry 97 Oxygen Delivery Exam 2 Const: General: cooperative, healthy appearing, comfortable, well developed, alert, awake and Physically active Nutritional Appearance: average body habitus Orientation/consciousness: oriented to person HENMT: Head: normal to inspection Eyes: General: appearance normal, both eyes and all related structures Resp: Effort & Inspection: normal respiratory effort and able to speak in complete sentences GI: Inspection: normal to inspection Back/Spine/Pelvis: Back: no CVA tenderness Skin: General skin exam: normal color Extrem: General: normal to inspection and full ROM Psych: Appearance: grossly normal Results Labs 10/06/24 11:40 10/06/24 11:40 Labs: Short CBC 10/06/24 Range/Units 11:40 WBC 9.0 (4.5-10.0) K/mm3 Hgb 9.9 L (14.0-18.0) g/dL Hct 30.0 L (42.0-52.0) % Plt Count 188 (150-375) k/mm3 BMP 10/06/24 11:40 Sodium 135 L Potassium 4.0 Chloride 102 Carbon Dioxide 25 BUN 20 Creatinine 1.15 Glucose 123 H Calcium 8.6 Liver Function 10/06/24 Range/Units 11:40 Total Bilirubin 3.4 H (0.2-1.3) mg/dL AST 21 (17-59) U/L ALT 12 (6-50) U/L Alkaline Phosphatase 50 (38-126) U/L Albumin 3.7 (3.5-5.1) g/dL Urine 10/06/24 Range/Units 11:48 Urine Color Yellow (Yellow) Urine Appearance Clear (Clear) Urine pH 5.5 (5.0-9.0) Ur Specific [place] 1.012 (1.001-1.035) Urine Protein Negative (Negative) mg/dL Urine Glucose (UA) Negative (Negative) mg/dL Imaging Radiologist's impression: Hypovascular right renal mass at the lower pole with surrounding hemorrhage, suspicious for renal cell carcinoma with associated hemorrhage. Differential diagnosis includes renal cell carcinoma, renal angiomyolipoma, hemorrhagic renal cyst or cystic neoplasm, metastatic disease to the kidney, sarcoma. Recommend urological consultation. Consider correlation with contrast-enhanced MRI. 2: Right inguinal hernia containing fat. 3: Gallstones. 4: Mild right hydronephrosis.
[2024-10-06 17:19] LABS: Hematocrit 33.0 % (42.0-52.0); Hemoglobin 11.0 g/dL (14.0-18.0)
[2024-10-06] MEDS: FINASTERIDE 5 MG TABLET PO (20:53)
[2024-10-06] MEDS: ISOSORBIDE DINITRATE 10 MG TABLET 30 MG PO (20:53)
[2024-10-06] MEDS: LORATADINE 10 MG TABLET PO (20:53)
[2024-10-06] MEDS: METOPROLOL TARTRATE 50 MG TAB PO (20:54)
[2024-10-06] MEDS: PANTOPRAZOLE 40 MG TABLET PO (20:54)
[2024-10-07] VITALS (14 sets, daily range): BP systolic 107–141; BP diastolic 51–69; PULSE 67–85; RESP 16–20; TEMP 36.9–37.4; O2SAT 95–98
[2024-10-07 02:22] LABS: Hematocrit 28.3 % (42.0-52.0); Hemoglobin 9.4 g/dL (14.0-18.0)
[2024-10-07 06:17] LABS: Hematocrit 28.5 % (42.0-52.0); Hemoglobin 9.3 g/dL (14.0-18.0); Immature Granulocyte Percent A 0.7 % (0-0.5); Lymphocytes Absolute Auto 0.70 K/mm3 (0.9-3.2); Mean Corpuscular HGB Conc 32.6 g/dl (32-36); Mean Corpuscular Hemoglobin 31.5 pg (26-34); Mean Corpuscular Volume 96.6 fl (80-100); Nucleated Red Blood Cells Absolute Auto 0.000 K/mm3 (0.0-0.012); Nucleated Red Blood Cells Perc 0.0 % (0.0-0.2); Platelet Count Result 180 k/mm3 (150-375); Red Blood Count 2.95 M/mm3 (4.6-6.20); White Blood Count 8.7 K/mm3 (4.5-10.0)
[2024-10-07 06:38] LABS: Anion Gap 7 mmol/L (4-12); Blood Urea Nitrogen 20 mg/dL (9-20); Calcium 8.3 mg/dL (8.4-10.2); Carbon Dioxide 23 mmol/L (22-30); Chloride 102 mmol/L (98-107); Estimated CRCL calculation 52 ml/min; Estimated Glomerular Filt Rate > 60; Glucose 107 mg/dL (65-110); Potassium 4.0 mmol/L (3.4-5.0); Sodium 132 mmol/L (137-145)
--- NOTE | 2024-10-07 07:27 | WPDUROPN2 ---
Progress Note: A&P Assessment and Plan (1) Hematoma: Code(s): T14.8XXA - Other injury of unspecified body region, initial encounter Status: Acute (2) Renal mass: Code(s): N28.89 - Other specified disorders of kidney and ureter Status: Acute Plan Has been admitted to the hospital service for monitoring of his hemoglobin hematocrit. His Hct did drop some, but may he remains AFVSS -- recommend additional monitoring based on the trend If drops or he becomes unstable procedure of choice would be embolization. I believe this is unlikely given his overall clinical picture at this point. He appears quite stable. If hemoglobin hematocrit remained stable can likely be discharged home. He will need outpatient workup for the renal mass. Likelihood is there is underlying renal mass such as renal cell carcinoma. Discussed with patient he may ultimately require nephrectomy. We will follow along Subjective Subjective Date/Time Seen: 10/07/24 07:27 Interval history: MARINE o/n, Hct 28 from 33, has mild RLQ pain Review of Systems Review of Systems: All systems reviewed & are unremarkable except as noted in HPI and below Exam Narrative: No acute distress Objective Data Vital Signs Vital Signs: Vital Signs - 24 hr 10/06/24 10:59 10/06/24 14:04 10/06/24 15:28 Temperature 36.7 C Pulse Rate 69 77 78 Respiratory Rate 18 16 18 Blood Pressure 148/76 H 142/83 H 107/75 Pulse Oximetry 98 98 98 Oxygen Delivery Room Air 10/06/24 16:00 10/06/24 16:00 10/06/24 16:04 Temperature 36.9 C Pulse Rate 79 73 Respiratory Rate 24 H Blood Pressure 141/65 H Pulse Oximetry 97 Oxygen Delivery Room Air 10/06/24 18:00 10/06/24 20:00 10/06/24 20:25 Temperature Pulse Rate 103 H 83 90 Respiratory Rate 22 H Blood Pressure Pulse Oximetry 97 Oxygen Delivery Room Air 10/06/24 20:54 10/06/24 20:57 10/06/24 22:00 Temperature 36.6 C Pulse Rate 80 90 92 Respiratory Rate 22 H Blood Pressure 116/55 L Pulse Oximetry 97 Oxygen Delivery 10/06/24 23:34 10/06/24 23:50 10/07/24 00:00 Temperature 36.6 C Pulse Rate 71 71 72 Respiratory Rate 20 20 Blood Pressure 90/43 L Pulse Oximetry 99 99 Oxygen Delivery Room Air 10/07/24 01:21 10/07/24 03:51 10/07/24 03:57 Temperature 37.1 C Pulse Rate 73 72 72 Respiratory Rate 20 20 Blood Pressure 107/51 L Pulse Oximetry 96 96 Oxygen Delivery Room Air 10/07/24 04:00 10/07/24 05:13 Temperature Pulse Rate 73 74 Respiratory Rate Blood Pressure Pulse Oximetry Oxygen Delivery Intake/Output Intake/Output: Intake & Output 10/04/24 10/05/24 10/06/24 10/07/24 23:59 23:59 23:59 23:59 Intake Total 550 Output Total 180 225 Balance -180 325 Meds/Results Medications: Active Medications Generic Name Dose Route Start Last Admin Trade Name Freq PRN Reason Stop Dose Admin Acetaminophen 650 mg 10/06/24 14:22 Acetaminophen 325 Mg Tablet PO Q4H PRN Mild Pain (1-3) or Fever Hydrocodone Bitart/Acetaminophen 1 tab 10/06/24 14:22 10/06/24 15:46 Hydrocodone/Acetaminophen (*Crx) 5-325 Mg Tablet PO 1 tab Q4H PRN Administration Moderate Pain (4-6) Atorvastatin Calcium 40 mg 10/07/24 18:00 Atorvastatin 40 Mg Tablet PO QPM DEANDRA Dextrose 12.5 gm 10/06/24 19:28 Dextrose 50% 25 Gm/50 Ml Syringe IV PUSH PRN PRN Hypoglycemia Protocol Docusate Sodium 100 mg 10/06/24 17:00 10/06/24 18:18 Docusate Sodium 100 Mg Capsule PO Not Given BID DEANDRA Finasteride 5 mg 10/06/24 21:00 10/06/24 20:53 Finasteride 5 Mg Tablet PO 5 mg HS DEANDRA Administration Glucagon 1 mg 10/06/24 19:28 Glucagon For Inj 1 Mg Vial IM PRN PRN Hypoglycemia Protocol Glucose 15 gm 10/06/24 19:28 Glucose Oral Gel 15 Gm Of Glucse In 37.5 Gm Tube PO PRN PRN Hypoglycemia Protocol Dextrose 1,000 mls @ 100 mls/hr 10/06/24 19:28 Dextrose 5% 1,000 Ml IVPB PRN PRN Hypoglycemia Protocol Insulin Aspart 2 - 5 units 10/07/24 08:00 Insulin Aspart (*Bkc) 100 Units/Ml SUB-Q TIDWM [facility] Protocol Isosorbide Dinitrate 30 mg 10/06/24 21:00 10/06/24 20:53 Isosorbide Dinitrate 10 Mg Tablet PO 30 mg HS DEANDRA Administration Loratadine 10 mg 10/06/24 21:00 10/06/24 20:53 Loratadine 10 Mg Tablet PO 10 mg HS DEANDRA Administration Metoprolol Tartrate 50 mg 10/06/24 21:00 10/06/24 20:54 Metoprolol Tartrate 50 Mg Tab PO 50 mg Q12HR DEANDRA Administration Morphine Sulfate 2 mg 10/06/24 14:22 Morphine Sulfate (*Crx) 2 Mg/Ml Inj IV PUSH Q4H PRN Pain Rated 7-10 Naloxone HCl 0.1 mg 10/06/24 14:22 Naloxone Hcl 0.4 Mg/Ml Vial IV PUSH Q2M PRN Opiate Reversal Pantoprazole Sodium 40 mg 10/06/24 21:00 10/06/24 20:54 Pantoprazole 40 Mg Tablet PO 40 mg HS DAENDRA Administration Tamsulosin HCl 0.4 mg 10/07/24 18:00 Tamsulosin Hcl 0.4 Mg Capsule PO QPM [facility] Radiology Results: ITS Impressions Abdomen/Pelvis CT 10/06/24 13:34 IMPRESSION: 1. Hypovascular right renal mass at the lower pole with surrounding hemorrhage, suspicious for renal cell carcinoma with associated hemorrhage. Differential diagnosis includes renal cell carcinoma, renal angiomyolipoma, hemorrhagic renal cyst or cystic neoplasm, metastatic disease to the kidney, sarcoma. Recommend urological consultation. Consider correlation with contrast-enhanced MRI. 2: Right inguinal hernia containing fat. 3: Gallstones. 4: Mild right hydronephrosis. Labs Labs: Laboratory Results - last 24 hr 10/06/24 10/06/24 10/06/24 11:40 11:48 14:22 WBC 9.0 RBC 3.11 L Hgb 9.9 L Hct 30.0 L MCV 96.5 MCH 31.8 MCHC 33.0 RDW 13.8 Plt Count 188 MPV 9.7 Immature Gran % (Auto) 0.8 H Neut % (Auto) 80.2 H Lymph % (Auto) 6.1 L [place] % (Auto) 12.2 H Eos % (Auto) 0.3 Baso % (Auto) 0.4 Lymph # (Auto) 0.55 L [place] # (Auto) 1.1 H Eos # (Auto) 0.0 Baso # (Auto) 0.0 Abs Immat Gran (auto) 0.07 H Absolute Neuts (auto) 7.2 H Absolute Nucleated RBC 0.000 Nucleated RBC % 0.0 PT 14.7 INR 1.2 APTT 30.1 Sodium 135 L Potassium 4.0 Chloride 102 Carbon Dioxide 25 Anion Gap 8 BUN 20 Creatinine 1.15 Estim Creat Clear Calc 60 Estimated GFR > 60 Glucose 123 H POC Capillary Glucose Calcium 8.6 Total Bilirubin 3.4 H AST 21 ALT 12 Alkaline Phosphatase 50 Total Protein 6.1 L Albumin 3.7 Urine Color Yellow Urine Appearance Clear Urine pH 5.5 Ur Specific [place] 1.012 Urine Protein Negative Urine Glucose (UA) Negative Urine Ketones Negative Ur Blood (Man) Negative Urine Nitrate Negative Urine Bilirubin Negative Urine Urobilinogen 0.2 Leukocyte Esterase Rfl Negative Blood Type O Negative Antibody Screen Negative 10/06/24 10/06/24 10/06/24 16:58 17:54 21:31 WBC RBC Hgb 11.0 L Hct 33.0 L MCV MCH MCHC RDW Plt Count MPV Immature Gran % (Auto) Neut % (Auto) Lymph % (Auto) [place] % (Auto) Eos % (Auto) Baso % (Auto) Lymph # (Auto) [place] # (Auto) Eos # (Auto) Baso # (Auto) Abs Immat Gran (auto) Absolute Neuts (auto) Absolute Nucleated RBC Nucleated RBC % PT INR APTT Sodium Potassium Chloride Carbon Dioxide Anion Gap BUN Creatinine Estim Creat Clear Calc Estimated GFR Glucose POC Capillary Glucose 111 H 123 H Calcium Total Bilirubin AST ALT Alkaline Phosphatase Total Protein Albumin Urine Color Urine Appearance Urine pH Ur Specific [place] Urine Protein Urine Glucose (UA) Urine Ketones Ur Blood (Man) Urine Nitrate Urine Bilirubin Urine Urobilinogen Leukocyte Esterase Rfl Blood Type Antibody Screen 10/07/24 10/07/24 00:45 06:12 WBC 8.7 RBC 2.95 L Hgb 9.4 L 9.3 L Hct 28.3 L 28.5 L MCV 96.6 MCH 31.5 MCHC 32.6 RDW 13.8 Plt Count 180 MPV 9.3 Immature Gran % (Auto) 0.7 H Neut % (Auto) 77.6 H Lymph % (Auto) 8.1 L [place] % (Auto) 12.6 H Eos % (Auto) 0.5 Baso % (Auto) 0.5 Lymph # (Auto) 0.70 L [place] # (Auto) 1.1 H Eos # (Auto) 0.0 Baso # (Auto) 0.0 Abs Immat Gran (auto) 0.06 H Absolute Neuts (auto) 6.7 Absolute Nucleated RBC 0.000 Nucleated RBC % 0.0 PT INR APTT Sodium 132 L Potassium 4.0 Chloride 102 Carbon Dioxide 23 Anion Gap 7 BUN 20 Creatinine 1.05 Estim Creat Clear Calc 52 Estimated GFR > 60 Glucose 107 POC Capillary Glucose Calcium 8.3 L Total Bilirubin AST ALT Alkaline Phosphatase Total Protein Albumin Urine Color Urine Appearance Urine pH Ur Specific [place] Urine Protein Urine Glucose (UA) Urine Ketones Ur Blood (Man) Urine Nitrate Urine Bilirubin Urine Urobilinogen Leukocyte Esterase Rfl Blood Type Antibody Screen
[2024-10-07] MEDS: METOPROLOL TARTRATE 50 MG TAB PO ×2 (08:19→21:49)
[2024-10-07] MEDS: HYDROcodone/acetaminophen (*CRX) 5-325 MG TABLET 1 TAB PO ×2 (08:19→21:55)
[2024-10-07] MEDS: DOCUSATE SODIUM 100 MG CAPSULE PO ×2 (08:19→17:43)
[2024-10-07 09:40] LABS: Hematocrit 28.6 % (42.0-52.0); Hemoglobin 9.4 g/dL (14.0-18.0)
--- NOTE | 2024-10-07 09:48 | P.PNIM_ITS ---
Progress Note: A&P Assessment and Plan (1) Acute blood loss anemia: Code(s): D62 - Acute posthemorrhagic anemia Status: Acute Assessment and Plan: Hypovascular right renal mass at the lower pole with surrounding hemorrhage, suspicious for renal cell carcinoma with associated hemorrhage measuring approximately 9 x 12.3 x 7.6 cm. Likely injury from last weekend and not still actively bleeding. Hemoglobin q.6 Transfuse for hemoglobin less than 7 or symptomatic Type and screen 10/07 stable at 9.3, monitor overnight and discharge if stable (2) Hematoma: Code(s): T14.8XXA - Other injury of unspecified body region, initial encounter Status: Acute Assessment and Plan: Intraperitoneal hematoma seen on CT likely due to renal cell carcinoma Likely injury from last weekend and not still actively bleeding. See plan above (3) Renal cell carcinoma: Qualifiers: Laterality: right Qualified Code(s): C64.1 - Malignant neoplasm of right kidney, except renal pelvis Code(s): C64.9 - Malignant neoplasm of unspecified kidney, except renal pelvis Status: Acute Assessment and Plan: Urology consulted Urology does not believe that the patient is still currently bleeding, states that the patient can be monitored overnight for hemoglobin and then discharged in the morning if there is no drop in hemoglobin. If there is a drop in hemoglobin overnight then the patient can go to IR. Patient will follow-up outpatient with Urology to determine when is best for surgery. (4) HTN (hypertension): Code(s): I10 - Essential (primary) hypertension Status: Acute Assessment and Plan: Hold antihypertensive medications 10/07 BP 121/69 (5) CAD (coronary artery disease): Code(s): I25.10 - Atherosclerotic heart disease of [place] coronary artery without angina pectoris Status: Acute Assessment and Plan: Hold Plavix Continue isosorbide (6) Diabetes mellitus: Qualifiers: Diabetes mellitus type: type 2 Diabetes mellitus chcf insulin use: without chcf use Diabetes mellitus complication status: without complication Qualified Code(s): E11.9 - Type 2 diabetes mellitus without complications Code(s): E11.9 - Type 2 diabetes mellitus without complications Status: Acute Assessment and Plan: Hold metformin while patient was hospital in case he needs contrast Accu-Cheks a.c. HS Low-dose SSI 10/07 FBS 106 (7) Hydronephrosis of right kidney: Code(s): N13.30 - Unspecified hydronephrosis Status: Acute Assessment and Plan: Urology consultation noted (8) BPH (benign prostatic hyperplasia): Code(s): N40.0 - Benign prostatic hyperplasia without lower urinary tract symptoms Status: Acute Assessment and Plan: Continue home medication Subjective Date/time seen: 10/07/24 09:48 Interval history: Right groin pain much improved. No chest pain shortness a breath GI or complaints. No abnormal bleeding noted. Tolerating diet. Review of Systems Review of Systems: All systems reviewed & are unremarkable except as noted in HPI and below Exam Narrative: HEENT: PERRL, sclerae nonicteric, pharyngeal mucosa pink and intact NECK: No JVD, adenopathy, or thyromegaly CHEST: Clear to auscultation. Normal effort HEART: NL S1/S2, regular, no murmur ABDOMEN: BS+, soft, mild right flank to lower quadrant tenderness and fullness, no mass, no bruits EXTREMITIES: No cyanosis, edema, or clubbing NEUROLOGIC: CN intact and symmetric to inspection. MUSCULOSKELETAL: Tone and strength symmetric PSYCH: Alert. Oriented to person, place, and time Objective Data Vital Signs Vital Signs: Vital Signs - 24 hr 10/06/24 10:59 10/06/24 14:04 10/06/24 15:28 Temperature 98.0 F Pulse Rate 69 77 78 Respiratory Rate 18 16 18 Blood Pressure 148/76 H 142/83 H 107/75 Pulse Oximetry 98 98 98 Oxygen Delivery Room Air 10/06/24 16:00 10/06/24 16:00 10/06/24 16:04 Temperature 98.4 F Pulse Rate 79 73 Respiratory Rate 24 H Blood Pressure 141/65 H Pulse Oximetry 97 Oxygen Delivery Room Air 10/06/24 18:00 10/06/24 20:00 10/06/24 20:25 Temperature Pulse Rate 103 H 83 90 Respiratory Rate 22 H Blood Pressure Pulse Oximetry 97 Oxygen Delivery Room Air 10/06/24 20:54 10/06/24 20:57 10/06/24 22:00 Temperature 98 F Pulse Rate 80 90 92 Respiratory Rate 22 H Blood Pressure 116/55 L Pulse Oximetry 97 Oxygen Delivery 10/06/24 23:34 10/06/24 23:50 10/07/24 00:00 Temperature 97.8 F Pulse Rate 71 71 72 Respiratory Rate 20 20 Blood Pressure 90/43 L Pulse Oximetry 99 99 Oxygen Delivery Room Air 10/07/24 01:21 10/07/24 03:51 10/07/24 03:57 Temperature 98.7 F Pulse Rate 73 72 72 Respiratory Rate 20 20 Blood Pressure 107/51 L Pulse Oximetry 96 96 Oxygen Delivery Room Air 10/07/24 04:00 10/07/24 05:13 10/07/24 07:57 Temperature 98.4 F Pulse Rate 73 74 67 Respiratory Rate 20 Blood Pressure 121/69 Pulse Oximetry 97 Oxygen Delivery 10/07/24 08:00 10/07/24 08:00 10/07/24 08:19 Temperature Pulse Rate 78 74 Respiratory Rate Blood Pressure Pulse Oximetry Oxygen Delivery Room Air Intake/Output Intake/Output: Intake & Output 10/04/24 10/05/24 10/06/24 10/07/24 23:59 23:59 23:59 23:59 Intake Total 790 Output Total 180 225 Balance -180 565 Meds/Results Medications: Active Medications Generic Name Dose Route Start Last Admin Trade Name Freq PRN Reason Stop Dose Admin Acetaminophen 650 mg 10/06/24 14:22 Acetaminophen 325 Mg Tablet PO Q4H PRN Mild Pain (1-3) or Fever Hydrocodone Bitart/Acetaminophen 1 tab 10/06/24 14:22 10/07/24 08:19 Hydrocodone/Acetaminophen (*Crx) 5-325 Mg Tablet PO 1 tab Q4H PRN Administration Moderate Pain (4-6) Atorvastatin Calcium 40 mg 10/07/24 18:00 Atorvastatin 40 Mg Tablet PO QPM [facility] Dextrose 12.5 gm 10/06/24 19:28 Dextrose 50% 25 Gm/50 Ml Syringe IV PUSH PRN PRN Hypoglycemia Protocol Docusate Sodium 100 mg 10/06/24 17:00 10/07/24 08:19 Docusate Sodium 100 Mg Capsule PO 100 mg BID DEANDRA Administration Finasteride 5 mg 10/06/24 21:00 10/06/24 20:53 Finasteride 5 Mg Tablet PO 5 mg HS DEANDRA Administration Glucagon 1 mg 10/06/24 19:28 Glucagon For Inj 1 Mg Vial IM PRN PRN Hypoglycemia Protocol Glucose 15 gm 10/06/24 19:28 Glucose Oral Gel 15 Gm Of Glucse In 37.5 Gm Tube PO PRN PRN Hypoglycemia Protocol Dextrose 1,000 mls @ 100 mls/hr 10/06/24 19:28 Dextrose 5% 1,000 Ml IVPB PRN PRN Hypoglycemia Protocol Insulin Aspart 2 - 5 units 10/07/24 08:00 10/07/24 07:36 Insulin Aspart (*Bkc) 100 Units/Ml SUB-Q Not Given TIDWM [facility] Protocol Isosorbide Dinitrate 30 mg 10/06/24 21:00 10/06/24 20:53 Isosorbide Dinitrate 10 Mg Tablet PO 30 mg HS DEANDRA Administration Loratadine 10 mg 10/06/24 21:00 10/06/24 20:53 Loratadine 10 Mg Tablet PO 10 mg HS DEANDRA Administration Metoprolol Tartrate 50 mg 10/06/24 21:00 10/07/24 08:19 Metoprolol Tartrate 50 Mg Tab PO 50 mg Q12HR DEANDRA Administration Morphine Sulfate 2 mg 10/06/24 14:22 Morphine Sulfate (*Crx) 2 Mg/Ml Inj IV PUSH Q4H PRN Pain Rated 7-10 Naloxone HCl 0.1 mg 10/06/24 14:22 Naloxone Hcl 0.4 Mg/Ml Vial IV PUSH Q2M PRN Opiate Reversal Pantoprazole Sodium 40 mg 10/06/24 21:00 10/06/24 20:54 Pantoprazole 40 Mg Tablet PO 40 mg HS DEANDRA Administration Tamsulosin HCl 0.4 mg 10/07/24 18:00 Tamsulosin Hcl 0.4 Mg Capsule PO QPM [facility] Radiology Results: ITS Impressions Abdomen/Pelvis CT 10/06/24 13:34 IMPRESSION: 1. Hypovascular right renal mass at the lower pole with surrounding hemorrhage, suspicious for renal cell carcinoma with associated hemorrhage. Differential diagnosis includes renal cell carcinoma, renal angiomyolipoma, hemorrhagic renal cyst or cystic neoplasm, metastatic disease to the kidney, sarcoma. Recommend urological consultation. Consider correlation with contrast-enhanced MRI. 2: Right inguinal hernia containing fat. 3: Gallstones. 4: Mild right hydronephrosis. Labs Labs: Laboratory Results - last 24 hr 10/06/24 10/06/24 10/06/24 11:40 11:48 14:22 WBC 9.0 RBC 3.11 L Hgb 9.9 L Hct 30.0 L MCV 96.5 MCH 31.8 MCHC 33.0 RDW 13.8 Plt Count 188 MPV 9.7 Immature Gran % (Auto) 0.8 H Neut % (Auto) 80.2 H Lymph % (Auto) 6.1 L [place] % (Auto) 12.2 H Eos % (Auto) 0.3 Baso % (Auto) 0.4 Lymph # (Auto) 0.55 L [place] # (Auto) 1.1 H Eos # (Auto) 0.0 Baso # (Auto) 0.0 Abs Immat Gran (auto) 0.07 H Absolute Neuts (auto) 7.2 H Absolute Nucleated RBC 0.000 Nucleated RBC % 0.0 PT 14.7 INR 1.2 APTT 30.1 Sodium 135 L Potassium 4.0 Chloride 102 Carbon Dioxide 25 Anion Gap 8 BUN 20 Creatinine 1.15 Estim Creat Clear Calc 60 Estimated GFR > 60 Glucose 123 H POC Capillary Glucose Calcium 8.6 Total Bilirubin 3.4 H AST 21 ALT 12 Alkaline Phosphatase 50 Total Protein 6.1 L Albumin 3.7 Urine Color Yellow Urine Appearance Clear Urine pH 5.5 Ur Specific [place] 1.012 Urine Protein Negative Urine Glucose (UA) Negative Urine Ketones Negative Ur Blood (Man) Negative Urine Nitrate Negative Urine Bilirubin Negative Urine Urobilinogen 0.2 Leukocyte Esterase Rfl Negative Blood Type O Negative Antibody Screen Negative 10/06/24 10/06/24 10/06/24 16:58 17:54 21:31 WBC RBC Hgb 11.0 L Hct 33.0 L MCV MCH MCHC RDW Plt Count MPV Immature Gran % (Auto) Neut % (Auto) Lymph % (Auto) [place] % (Auto) Eos % (Auto) Baso % (Auto) Lymph # (Auto) [place] # (Auto) Eos # (Auto) Baso # (Auto) Abs Immat Gran (auto) Absolute Neuts (auto) Absolute Nucleated RBC Nucleated RBC % PT INR APTT Sodium Potassium Chloride Carbon Dioxide Anion Gap BUN Creatinine Estim Creat Clear Calc Estimated GFR Glucose POC Capillary Glucose 111 H 123 H Calcium Total Bilirubin AST ALT Alkaline Phosphatase Total Protein Albumin Urine Color Urine Appearance Urine pH Ur Specific [place] Urine Protein Urine Glucose (UA) Urine Ketones Ur Blood (Man) Urine Nitrate Urine Bilirubin Urine Urobilinogen Leukocyte Esterase Rfl Blood Type Antibody Screen 10/07/24 10/07/24 10/07/24 00:45 06:12 07:24 WBC 8.7 RBC 2.95 L Hgb 9.4 L 9.3 L Hct 28.3 L 28.5 L MCV 96.6 MCH 31.5 MCHC 32.6 RDW 13.8 Plt Count 180 MPV 9.3 Immature Gran % (Auto) 0.7 H Neut % (Auto) 77.6 H Lymph % (Auto) 8.1 L [place] % (Auto) 12.6 H Eos % (Auto) 0.5 Baso % (Auto) 0.5 Lymph # (Auto) 0.70 L [place] # (Auto) 1.1 H Eos # (Auto) 0.0 Baso # (Auto) 0.0 Abs Immat Gran (auto) 0.06 H Absolute Neuts (auto) 6.7 Absolute Nucleated RBC 0.000 Nucleated RBC % 0.0 PT INR APTT Sodium 132 L Potassium 4.0 Chloride 102 Carbon Dioxide 23 Anion Gap 7 BUN 20 Creatinine 1.05 Estim Creat Clear Calc 52 Estimated GFR > 60 Glucose 107 POC Capillary Glucose 106 H Calcium 8.3 L Total Bilirubin AST ALT Alkaline Phosphatase Total Protein Albumin Urine Color Urine Appearance Urine pH Ur Specific [place] Urine Protein Urine Glucose (UA) Urine Ketones Ur Blood (Man) Urine Nitrate Urine Bilirubin Urine Urobilinogen Leukocyte Esterase Rfl Blood Type Antibody Screen
[2024-10-07 13:27] LABS: Hematocrit 29.7 % (42.0-52.0); Hemoglobin 9.7 g/dL (14.0-18.0)
--- NOTE | 2024-10-07 15:56 | PC.NURSE ---
Report given to Alycia for transfer to [facility]. Patient notified of new room assignment.
--- NOTE | 2024-10-07 16:10 | PC.NURSE ---
received report from ARCHANA Hernandez. pt transfered to room 341 via bed from IMU. pt oriented to room and call light.
--- NOTE | 2024-10-07 16:11 | PC.NURSE ---
This patient, Jesse Churchill, was transferred to [facility] on 10/07/24 at 1605. Personal belongings sent with patient. Report given to Alycia. Appropriate documentation sent with patient.
[2024-10-07] MEDS: TAMSULOSIN HCL 0.4 MG CAPSULE PO (17:43)
[2024-10-07] MEDS: ATORVASTATIN 40 MG TABLET PO (17:43)
[2024-10-07 18:41] LABS: Hematocrit 29.0 % (42.0-52.0); Hemoglobin 9.6 g/dL (14.0-18.0)
[2024-10-07] MEDS: FINASTERIDE 5 MG TABLET PO (21:48)
[2024-10-07] MEDS: LORATADINE 10 MG TABLET PO (21:48)
[2024-10-07] MEDS: PANTOPRAZOLE 40 MG TABLET PO (21:48)
[2024-10-07] MEDS: ISOSORBIDE DINITRATE 10 MG TABLET 30 MG PO (21:48)
[2024-10-08 05:34] VITALS: BP 109/65; PULSE 72; RESP 16; TEMP 36.9; O2SAT 95
[2024-10-08] MEDS: DOCUSATE SODIUM 100 MG CAPSULE PO (07:57)
[2024-10-08 07:58] VITALS: PULSE 72
[2024-10-08] MEDS: METOPROLOL TARTRATE 50 MG TAB PO (07:58)
[2024-10-08 08:00] VITALS: O2SAT 97
[2024-10-08 08:26] LABS: Hematocrit 28.6 % (42.0-52.0); Hemoglobin 9.4 g/dL (14.0-18.0)
--- NOTE | 2024-10-08 12:06 | P.PNUR_ITS ---
Progress Note: A&P Assessment and Plan (1) Hematoma: Code(s): T14.8XXA - Other injury of unspecified body region, initial encounter Status: Acute (2) Renal mass: Code(s): N28.89 - Other specified disorders of kidney and ureter Status: Acute Plan Has been admitted to the hospital service for monitoring of his hemoglobin hematocrit. His Hct did drop some initially, but stabilized today and he remains AFVSS As such, he is urologically cleared for discharge He will need outpatient workup for the renal mass. Likelihood is there is underlying renal mass such as renal cell carcinoma. Discussed with patient he may ultimately require nephrectomy, though much of his focus is on his right inguinal hernia so he can get back to work on things Subjective Subjective Date/Time Seen: 10/08/24 12:06 Interval history: MARINE o/n, Hct stabilized at 29 from 28 from 33, has mild RLQ pain and his focus is getting his right inguinal hernia fixed Review of Systems Review of Systems: All systems reviewed & are unremarkable except as noted in HPI and below Exam Narrative: No acute distress Objective Data Vital Signs Vital Signs: Vital Signs - 24 hr 10/07/24 17:56 10/07/24 20:00 10/07/24 21:49 Temperature 37.2 C Pulse Rate 85 78 Respiratory Rate 16 Blood Pressure 141/68 H Pulse Oximetry 98 Oxygen Delivery Room Air 10/07/24 21:51 10/07/24 21:58 10/08/24 05:34 Temperature 37.4 C 36.9 C Pulse Rate 76 72 Respiratory Rate 16 16 Blood Pressure 140/59 L 109/65 Pulse Oximetry 95 95 95 Oxygen Delivery Room Air 10/08/24 07:58 10/08/24 08:00 Temperature Pulse Rate 72 Respiratory Rate Blood Pressure Pulse Oximetry 97 Oxygen Delivery Room Air Intake/Output Intake/Output: Intake & Output 10/05/24 10/06/24 10/07/24 10/08/24 23:59 23:59 23:59 23:59 Intake Total 1250 800 Output Total 180 425 Balance -180 825 800 Meds/Results Medications: Active Medications Generic Name Dose Route Start Last Admin Trade Name Freq PRN Reason Stop Dose Admin Acetaminophen 650 mg 10/06/24 14:22 Acetaminophen 325 Mg Tablet PO Q4H PRN Mild Pain (1-3) or Fever Hydrocodone Bitart/Acetaminophen 1 tab 10/06/24 14:22 10/07/24 21:55 Hydrocodone/Acetaminophen (*Crx) 5-325 Mg Tablet PO 1 tab Q4H PRN Administration Moderate Pain (4-6) Atorvastatin Calcium 40 mg 10/07/24 18:00 10/07/24 17:43 Atorvastatin 40 Mg Tablet PO 40 mg QPM DEANDRA Administration Dextrose 12.5 gm 10/06/24 19:28 Dextrose 50% 25 Gm/50 Ml Syringe IV PUSH PRN PRN Hypoglycemia Protocol Docusate Sodium 100 mg 10/06/24 17:00 10/08/24 07:57 Docusate Sodium 100 Mg Capsule PO 100 mg BID DEANDRA Administration Finasteride 5 mg 10/06/24 21:00 10/07/24 21:48 Finasteride 5 Mg Tablet PO 5 mg HS DEANDRA Administration Glucagon 1 mg 10/06/24 19:28 Glucagon For Inj 1 Mg Vial IM PRN PRN Hypoglycemia Protocol Glucose 15 gm 10/06/24 19:28 Glucose Oral Gel 15 Gm Of Glucse In 37.5 Gm Tube PO PRN PRN Hypoglycemia Protocol Dextrose 1,000 mls @ 100 mls/hr 10/06/24 19:28 Dextrose 5% 1,000 Ml IVPB PRN PRN Hypoglycemia Protocol Insulin Aspart 2 - 5 units 10/07/24 08:00 10/08/24 07:57 Insulin Aspart (*Bkc) 100 Units/Ml SUB-Q Not Given TIDWM [facility] Protocol Isosorbide Dinitrate 30 mg 10/06/24 21:00 10/07/24 21:48 Isosorbide Dinitrate 10 Mg Tablet PO 30 mg HS DEANDRA Administration Loratadine 10 mg 10/06/24 21:00 10/07/24 21:48 Loratadine 10 Mg Tablet PO 10 mg HS DEANDRA Administration Metoprolol Tartrate 50 mg 10/06/24 21:00 10/08/24 07:58 Metoprolol Tartrate 50 Mg Tab PO 50 mg Q12HR DEANDRA Administration Morphine Sulfate 2 mg 10/06/24 14:22 Morphine Sulfate (*Crx) 2 Mg/Ml Inj IV PUSH Q4H PRN Pain Rated 7-10 Naloxone HCl 0.1 mg 10/06/24 14:22 Naloxone Hcl 0.4 Mg/Ml Vial IV PUSH Q2M PRN Opiate Reversal Pantoprazole Sodium 40 mg 10/06/24 21:00 10/07/24 21:48 Pantoprazole 40 Mg Tablet PO 40 mg HS DEANDRA Administration Tamsulosin HCl 0.4 mg 10/07/24 18:00 10/07/24 17:43 Tamsulosin Hcl 0.4 Mg Capsule PO 0.4 mg QPM DEANDRA Administration Radiology Results: ITS Impressions Abdomen/Pelvis CT 10/06/24 13:34 IMPRESSION: 1. Hypovascular right renal mass at the lower pole with surrounding hemorrhage, suspicious for renal cell carcinoma with associated hemorrhage. Differential diagnosis includes renal cell carcinoma, renal angiomyolipoma, hemorrhagic renal cyst or cystic neoplasm, metastatic disease to the kidney, sarcoma. Recommend urological consultation. Consider correlation with contrast-enhanced MRI. 2: Right inguinal hernia containing fat. 3: Gallstones. 4: Mild right hydronephrosis. Labs Labs: Laboratory Results - last 24 hr 10/07/24 10/07/24 10/07/24 13:17 17:41 18:34 Hgb 9.7 L 9.6 L Hct 29.7 L 29.0 L POC Capillary Glucose 116 H 10/07/24 10/08/24 10/08/24 20:42 07:55 08:00 Hgb 9.4 L Hct 28.6 L POC Capillary Glucose 123 H 117 H
--- NOTE | 2024-10-08 12:45 | P.DS_ITS ---
DS: Admitting Diagnosis Discharge Date 10/08/2024 Admitting Diagnosis right renal mass and perinephric hematoma DS: Discharge Diagnosis Discharge Diagnosis (1) Acute blood loss anemia: Code(s): D62 - Acute posthemorrhagic anemia Status: Acute Assessment and Plan: Hypovascular right renal mass at the lower pole with surrounding hemorrhage, suspicious for renal cell carcinoma with associated hemorrhage measuring approximately 9 x 12.3 x 7.6 cm. Likely injury from last weekend and not still actively bleeding. Monitor Transfuse for hemoglobin less than 7 or symptomatic Type and screen 10/07 stable at 9.3, 10/08 9.4 (2) Hematoma: Code(s): T14.8XXA - Other injury of unspecified body region, initial encounter Status: Acute Assessment and Plan: Intraperitoneal hematoma seen on CT likely due to renal cell carcinoma Likely injury from last weekend and not still actively bleeding. F/u w/ urology as outpt (3) Renal cell carcinoma: Qualifiers: Laterality: right Qualified Code(s): C64.1 - Malignant neoplasm of right kidney, except renal pelvis Code(s): C64.9 - Malignant neoplasm of unspecified kidney, except renal pelvis Status: Acute Assessment and Plan: CT A/P: IMPRESSION: 1. Hypovascular right renal mass at the lower pole with surrounding hemorrhage, suspicious for renal cell carcinoma with associated hemorrhage. Differential diagnosis includes renal cell carcinoma, renal angiomyolipoma, hemorrhagic renal cyst or cystic neoplasm, metastatic disease to the kidney, sarcoma. Recommend urological consultation. Consider correlation with contrast-enhanced MRI. 2: Right inguinal hernia containing fat. 3: Gallstones. 4: Mild right hydronephrosis.Urology consulted Urology consultation noted Patient will follow-up outpatient with Urology to determine when is best for surgery. (4) HTN (hypertension): Code(s): I10 - Essential (primary) hypertension Status: Acute Assessment and Plan: Hold antihypertensive medications, except metoprolol 10/07 BP 121/69, 10/08 109/65 (5) CAD (coronary artery disease): Code(s): I25.10 - Atherosclerotic heart disease of circle coronary artery without angina pectoris Status: Acute Assessment and Plan: Hold Plavix Continue isosorbide (6) Diabetes mellitus: Qualifiers: Diabetes mellitus complication status: without complication Diabetes mellitus terminal manager insulin use: without terminal manager use Diabetes mellitus type: type 2 Qualified Code(s): E11.9 - Type 2 diabetes mellitus without complications Code(s): E11.9 - Type 2 diabetes mellitus without complications Status: Acute Assessment and Plan: Hold metformin while patient was hospital in case he needs contrast Accu-Cheks a.c. HS Low-dose SSI 10/07 FBS 106, 10/08 117 (7) Hydronephrosis of right kidney: Code(s): N13.30 - Unspecified hydronephrosis Status: Acute Assessment and Plan: Urology consultation noted (8) BPH (benign prostatic hyperplasia): Code(s): N40.0 - Benign prostatic hyperplasia without lower urinary tract symptoms Status: Acute Assessment and Plan: Continue home medication DS: Summary Hospital Course Hospital Course: 84-year-old gentleman was admitted October 06 with 1 day of fairly intense right flank to lower quadrant abdominal discomfort. Imaging revealed a right renal mass and perinephric hematoma. Urology was consulted. The hematoma was managed conservatively. H&H remained stable. Pain was controlled. Was minimal while lying flat. He can only sit up for about 15 minutes before the pain became severe again. He had no dizziness lightheadedness chest pain shortness of breath GI or complaints. No blood in the stool or urine. No other abnormal bleeding. No focal weakness or numbness. No syncope or presyncope. He tolerated his diet well. He wished to be discharged and followed up as an outpatient with Urology and his primary care physician. Time Spent with Patient Time attestation: Total time spent providing and/or coordinating discharge services: Exam Narrative: HEENT: PERRL, sclerae nonicteric, pharyngeal mucosa pink and intact NECK: No JVD, adenopathy, or thyromegaly CHEST: Clear to auscultation. Normal effort HEART: NL S1/S2, regular, soft systolic murmur ABDOMEN: BS+, soft, mild right flank to lower quadrant tenderness and fullness, no mass, no bruits EXTREMITIES: No cyanosis, edema, or clubbing NEUROLOGIC: CN intact and symmetric to inspection. MUSCULOSKELETAL: Tone and strength symmetric PSYCH: Alert. Oriented to person, place, and time DS: Data Data Completed and Pending Labs on day of discharge: Labs from last 24 hours 10/08/24 10/08/24 10/07/24 08:00 07:55 20:42 Hgb 9.4 L Hct 28.6 L POC Capillary Glucose 117 H 123 H 10/07/24 10/07/24 10/07/24 18:34 17:41 13:17 Hgb 9.6 L 9.7 L Hct 29.0 L 29.7 L POC Capillary Glucose 116 H Discharge Plan Discharge Consulting providers: Jethro Martinez Discharging Clinician: Jv Duff Patient Disposition: Home Activity: no straining Diet: heart healthy and diabetic Patient Instructions: Clopidogrel (By mouth), Blood Thinners (DC) Patient Language: Greenlandic Stand Alone Forms: General Discharge Information Follow-up/Referrals: Jethro Martinez MD [Physician] - Call for Appointment Gunnar Bahena MD [Primary Care Provider] - Call for Appointment Discharge Medications: New oxycodone 5 mg tablet 5 mg PO Q6H PRN (Reason: pain) 3 Days Qty: 12 0RF acetaminophen 325 mg Tablet 650 mg PO Q4H PRN (Reason: pain) Qty: 60 0RF docusate sodium 100 mg Capsule 100 mg PO BID Qty: 30 0RF Continued isosorbide dinitrate 30 mg tablet 30 mg PO HS metoprolol tartrate 100 mg tablet 50 mg PO Q12H Rx Instructions: Take 0.5 tablet(50)mg by oral route 2 times everyday with meals ; finasteride 5 mg tablet 5 mg PO HS cetirizine [Zyrtec] 10 mg tablet 10 mg PO HS Rx Instructions: Take 1 tablet orally daily; atorvastatin 40 mg tablet 40 mg PO QPM Rx Instructions: TAKE 1 TABLET BY MOUTH DAILY tamsulosin 0.4 mg capsule 0.4 mg PO QPM Rx Instructions: TAKE 1 CAPSULE BY MOUTH DAILY 30 MINUTES AFTER THE SAME MEAL pantoprazole 40 mg tablet,delayed release (DR/EC) 40 mg PO HS Rx Instructions: TAKE 1 TABLET BY MOUTH DAILY metformin 500 mg tablet See Rx Instructions .ROUTE .COMPLEX Qty: 90 2RF Dose Instruction: TAKE 1 TABLET BY MOUTH DAILY Rx Instructions: TAKE 1 TABLET BY MOUTH DAILY Held clopidogrel 75 mg tablet 75 mg PO DAILY Hold Instructions: Resume on 10/29/24. Do not resume until instructed to do so by your primary doctor. amlodipine-valsartan 5-160 mg tablet 1 tablet PO DAILY Hold Instructions: Resume on 10/29/24. Do not resume until instructed to do so by your primary doctor. Discontinued calcium citrate-vitamin D3 [Calcium Citrate + D] 315-200 mg-unit tablet 1 tablet PO DAILY bhfrqlllash-vgxrswzjr-hzy C-Mn [Glucosamine Chondroitin MaxStr] 500-400 mg capsule See Rx Instructions PO DAILY Rx Instructions: Take 1 capsule PO daily; Date of admission: 10/07/24 14:42 Primary Care Provider: Gunnar Bahena Admitting Provider: Phu Aguilar Attending physician on admission: Phu Aguilar Condition: Stable
== END 2024-10-08 14:18 | disposition home or self-care (01) | DRG 687 ==
LOC: ANHED 14:39 → ANHIMU 15:00 → ANH3MED 10-08 13:00 → ANHIMU 10-10 13:15
PROVIDERS: Nurse Practitioner Gerontology; Admitting Provider Internal Medicine; PCP Emergency Medicine; Visit Provider Internal Medicine
DX: C64.1 Malignant neoplasm of right kidney, except renal pelvis (principal); D62 Acute posthemorrhagic anemia; S36.892A Contusion of other intra-abdominal organs, initial encounter; N13.30 Unspecified hydronephrosis; N28.89 Other specified disorders of kidney and ureter; I10 Essential (primary) hypertension; I25.10 Atherosclerotic heart disease of native coronary artery without angina pectoris; K21.9 Gastro-esophageal reflux disease without esophagitis; E55.9 Vitamin D deficiency, unspecified; N40.0 Benign prostatic hyperplasia without lower urinary tract symptoms; M16.0 Bilateral primary osteoarthritis of hip; G89.29 Other chronic pain; Z79.02 Long term (current) use of antithrombotics/antiplatelets; Z87.11 Personal history of peptic ulcer disease
CPT/HCPCS: 36415; 74177; 80048; 80053; 81003; 82948; 85014; 85018; 85025; 85610; 85730; 86850; 86900; 86901; 96374; 96375; 99285; A9270; G0378; J3010; Q9967

== ENCOUNTER 2024-10-13 23:19 | Emergency (ER) | payer MEDICARE, OTHER, SELFPAY ==
--- NOTE | ~2024-10-13 | CT_ITS ---
EXAMINATION: CT abdomen pelvis w con DATE: 10/14/2024 00:09 INDICATION: Testicular swelling and discoloration. Right inguinal hernia. Renal cell carcinoma. TECHNIQUE: Computed tomography (CT) of the abdomen and pelvis was performed with 100 mL Omnipaque-350 intravenous contrast. Automated exposure control and iterative reconstruction technique were employe d. The dose-length product was 1276.78 mGy-cm. COMPARISON: 10/06/2024 FINDINGS: Calcified left lower lobe nodule consistent with old granulomatous disease. Heart size normal. Athero sclerotic coronary artery calcifications and aortic valve calcific location. Venous sternotomy wires changes of prior coronary artery bypass grafting. Ascending thoracic aortic aneurysm measuring up to 4.9 cm. No pericardial or pleural effusion. Multiple small hepatic cysts measuring up to 1.6 cm. Multiple calcified gallstones layering in the de pendent aspect of the normal-appearing gallbladder. Multiple small splenic calcifications consistent with old granulomatous disease. Additional 5 mm low-attenuation likely splenic cyst or hemangioma. Pa ncreas and bilateral adrenal glands are normal. There are bilateral low-attenuation renal cysts measuring up to 3.6 cm the right kidney. Again seen i s a large exophytic mass arising from the lower pole the right kidney. The mass is difficult to disti nguish from the surrounding hemorrhage along with perinephric stranding. The mass and surrounding hem orrhage measure approximately 10.0 x 8.3 x 12.1 cm. The stranding and small amount of fluid extends c audally along the right gonadal vein into a large fat-containing right inguinal hernia which extends to the level of the base of the scrotum. There is a small focus of possible active extravasation with in the region of hemorrhage is present series 3, images 118-120. Mild diverticulosis with sigmoid colon predominance without adjacent from trace stranding to suggest diverticulitis. Small bowel and appendix are normal. Bladder is normal. Small amount of ascites in th e deep pelvis. No pathologically enlarged abdominal or pelvic lymphadenopathy. Severe lumbar and thor acic spondylosis. IMPRESSION: 1. Again seen is a large exophytic lesion arising from the lower pole the right kidney which remains difficult to distinguish from persistent surrounding hemorrhage. Possible small focus of active extra vasation within the perinephric hematoma. Differential would include renal cell carcinoma, angiomyoli chemo although there is no evident macroscopic fat to more specifically suggest this or ruptured hemor rhagic cyst. 2. Fat and fluid extending into a large right inguinal hernia which extends to the base of the scrotu m. 3. Small amount of ascites in the deep pelvis. 4. Cholelithiasis. Reviewed, dictated and finalized at location A. IMPRESSION: 1. Again seen is a large exophytic lesion arising from the lower pole the right kidney which remains difficult to distinguish from persistent surrounding hemo rrhage. Possible small focus of active extravasation within the perinephric hem atoma. Differential would include renal cell carcinoma, angiomyolipoma although there is no evident macroscopic fat to more specifically suggest this or ruptu red hemorrhagic cyst. 2. Fat and fluid extending into a large right inguinal hernia which extends to the base of the scrotum. 3. Small amount of ascites in the deep pelvis. 4. Cholelithiasis.
--- NOTE | ~2024-10-13 | CT_ITS ---
EXAMINATION: CTA abdomen pelvis DATE: 10/14/2024 04:09 INDICATION: Right renal mass with perinephric hematoma. Assess for active extravasation TECHNIQUE: Computed tomographic angiography (CTA) of the abdomen and pelvis was performed without and with 100 mL Omnipaque-350 intravenous contrast. Additional 3D reconstructions utilizing rotating max imum intensity projection (MIP) were performed. Automated exposure control and iterative reconstructi on technique were employed. The dose-length product was 3816.25 mGy-cm. COMPARISON: CT dated 10/14/2024 and 10/06/2024 FINDINGS: Calcific left lower lobe nodule consistent with old granulomatous disease. Dependent atelectasis in b oth lower lobes. Heart size normal. Atherosclerotic coronary artery calcifications and change of prio r median sternotomy and coronary artery bypass grafting. No pericardial or pleural effusion. Again se en is an ascending thoracic aortic aneurysm measuring up to 4.9 cm. Hepatic cysts. Calcified splenic granulomata. Pancreas, bilateral adrenal glands are normal. There are bilateral renal cysts measuring up to 3.6 cm in the right kidney. There is excreted contras t in the bilateral renal collecting systems, along portions of ureters and in the distended bladder. Again seen is an approximately 11.7 x 10.0 x 7.5 cm exophytic lesion arising from the lower pole the right kidney with heterogeneous attenuation and associated surrounding hemorrhage and perinephric str anding. There is a small region of enhancement best appreciated on series 6 and 10, images 110 and 11 1 which is suspicious for active extravasation. The majority of the lesion does not appear to demonst rate significant enhancement and may represent predominantly hemorrhage although there is concern for underlying solid neoplasm. Stranding and small amount of fluid extends caudally into a large fat-containing right inguinal herni a. Mild sigmoid diverticulosis. Small bowel and appendix are normal. Small amount of ascites in the p jordan. There is extensive scattered calcified atherosclerosis without hemodynamically significant britt nosis of the normal caliber abdominal aorta and many of the other arteries. Severe thoracic and lumba r spondylosis. Left total hip arthroplasty. IMPRESSION: 1. Large heterogeneous exophytic lesion arising from the lower pole the right kidney which appears la rgely to reflect high attenuation hemorrhage without definitive enhancement. There is a small focus o f active extravasation. There is concern for malignancy particularly renal cell carcinoma although di fferential would include a ruptured hemorrhagic cyst. No definitively enhancing solid soft tissue com ponent on the post contrast imaging however assessment is limited by the baseline high attenuation of the hemorrhage. Would consider further evaluation with pre and postcontrast MRI which be better be a ble to differentiate hemorrhage from a potential enhancing neoplasm such as renal cell carcinoma. 2. Stranding and small amount of fluid/hemorrhage extends into a large fat-containing right inguinal hernia extending to the base of the scrotum. 3. Cholelithiasis. 4. Partially visualized ascending thoracic aortic aneurysm measuring up to 4.9 cm. Reviewed, dictated and finalized at location A. IMPRESSION: 1. Large heterogeneous exophytic lesion arising from the lower pole the right k idney which appears largely to reflect high attenuation hemorrhage without defi nitive enhancement. There is a small focus of active extravasation. There is co ncern for malignancy particularly renal cell carcinoma although differential wo uld include a ruptured hemorrhagic cyst. No definitively enhancing solid soft t issue component on the post contrast imaging however assessment is limited by t he baseline high attenuation of the hemorrhage. Would consider further evaluati on with pre and postcontrast MRI which be better be able to differentiate hemor rhage from a potential enhancing neoplasm such as renal cell carcinoma. 2. Stranding and small amount of fluid/hemorrhage extends into a large fat-cont aining right inguinal hernia extending to the base of the scrotum. 3. Cholelithiasis. 4. Partially visualized ascending thoracic aortic aneurysm measuring up to 4.9 cm.
--- NOTE | ~2024-10-13 | US_ITS ---
EXAMINATION: US scrotum doppler DATE: 10/14/2024 00:57 INDICATION: Scrotal pain TECHNIQUE: Testicular sonogram utilizing grayscale and Doppler COMPARISON: None. FINDINGS: The right testis measures 5.4 x 3.1 x 3.9 cm. The left testis measures 5.3 x 2.3 x 3.9 cm. Symmetric normal grayscale appearance to both testes. There is normal vascular flow to both testes. The right e pididymis is normal with normal vascular flow. The left epididymis is normal with normal vascular savanah w. Bilateral varicoceles. There are also small bilateral hydroceles. There is a large amount of mobil e fat extending along the right spermatic cord to the scrotum consistent with a large hiatal hernia. No evident herniated bowel. IMPRESSION: 1. Large fat-containing right inguinal hernia extending caudally to the base of the scrotum. 2. Bilateral varicoceles and small hydroceles. 2. Normal testes and epididymides. Reviewed, dictated and finalized at location A. IMPRESSION: 1. Large fat-containing right inguinal hernia extending caudally to the base o f the scrotum. 2. Bilateral varicoceles and small hydroceles. 2. Normal testes and epididymides.
--- OUTSIDE RECORDS SUMMARY | 2024-10-13 23:22 | XMS_ITS | Clinical Summary ---
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 Essential hypertension 05/15/2014 Overview (06/05/2016): Essential hypertension Adiposity 05/15/2014 Overview (06/05/2016): Obesity Resolved Problems Problem Noted Date Diagnosed Date Resolved Date Dyslipidemia 08/11/2016 03/21/2020 Encounters Date Type Department Care Team Description 08/08/2024 Orders Only [facility] Cardiology [address] [place] [address] Provider, MD Monik from Last [...] on file 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
--- OUTSIDE RECORDS SUMMARY | 2024-10-13 23:22 | XMS_ITS | Encounter Summary ---
Author Organization [facility] Healthcare Address [address] [place] [address] Care Team Providers Care Healthcare Corporate Account Director Name Role Phone Gunnar Bahena MD Primary Care Provide r Encounter Details Date Type Department Care Team (Late st Contact Info) Description 12/02/2023 Orders Only [facility] [facility] Health Information Management [address] [place] [phone] Scanning, Provider Social History Tobacco Use Types Packs/Day Years Used Date Smoking Tobacco: Never Smokeless Tobacco: Never Alcohol Use Standard Drinks/Week Comments No 0 (1 standard drink = 0.6 oz pur e alcohol) Sex and Gender Information Value Date Recorded Sex Assigned at Not on file 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
--- OUTSIDE RECORDS SUMMARY | 2024-10-13 23:22 | XMS_ITS ---
Author Organization Unknown ENCOUNTERS Encounter Performer Location Date Diagnosis Diagnosis Status Emergency [place] [address] [place] [id number] VAISHALI *Note: Encounters from your own facility or health system may be excluded. Allergies, Adverse Reactions, Alerts Allergen Type Severity Identification Date Medications Name Date Quantity Days Supplied GPI Number
[2024-10-13 23:24] VITALS: BP 181/92; PULSE 75; RESP 14; TEMP 36.7; O2SAT 100
[2024-10-13 23:47] LABS: Hematocrit 33.0 % (42.0-52.0); Hemoglobin 11.2 g/dL (14.0-18.0); Immature Granulocyte Percent A 0.8 % (0-0.5); Lymphocytes Absolute Auto 1.15 K/mm3 (0.9-3.2); Mean Corpuscular HGB Conc 33.9 g/dl (32-36); Mean Corpuscular Hemoglobin 31.5 pg (26-34); Mean Corpuscular Volume 93.0 fl (80-100); Nucleated Red Blood Cells Absolute Auto 0.000 K/mm3 (0.0-0.012); Nucleated Red Blood Cells Perc 0.0 % (0.0-0.2); Platelet Count Result 365 k/mm3 (150-375); Red Blood Count 3.55 M/mm3 (4.6-6.20); White Blood Count 8.8 K/mm3 (4.5-10.0)
--- OUTSIDE RECORDS SUMMARY | 2024-10-13 23:51 | XMS_ITS | Clinical Summary ---
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 Essential hypertension 05/15/2014 Overview (06/05/2016): Essential hypertension Adiposity 05/15/2014 Overview (06/05/2016): Obesity Resolved Problems Problem Noted Date Diagnosed Date Resolved Date Dyslipidemia 08/11/2016 03/21/2020 Encounters Date Type Department Care Team Description 08/08/2024 Orders Only [facility] Cardiology [address] [place] [address] Provider, MD Monik from Last [...] on file 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
--- OUTSIDE RECORDS SUMMARY | 2024-10-13 23:51 | XMS_ITS | Encounter Summary ---
Author Organization [facility] Healthcare Address [address] [place] [address] Care Team Providers Care Manager Consumer Name Role Phone Gunnar Bahena MD Primary Care Provide r Encounter Details Date Type Department Care Team (Late st Contact Info) Description 12/02/2023 Orders Only [facility] [place] Health Information Management [address] [place] [id number] Scanning, Provider Social History Tobacco Use Types Packs/Day Years Used Date Smoking Tobacco: Never Smokeless Tobacco: Never Alcohol Use Standard Drinks/Week Comments No 0 (1 standard drink = 0.6 oz pur e alcohol) Sex and Gender Information Value Date Recorded Sex Assigned at Not on file 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
[2024-10-14 00:04] LABS: INR 1.0; Prothrombin Time 13.3 Seconds (11.1-14.7)
[2024-10-14 00:05] LABS: Partial Thromboplastin Time 34.2 Seconds (22.3-36.8)
[2024-10-14 00:29] LABS: Alanine Aminotransferase 23 U/L (6-50); Albumin Level 4.0 g/dL (3.5-5.1); Alkaline Phosphatase 76 U/L (38-126); Anion Gap 7 mmol/L (4-12); Aspartate Amino Transferase 30 U/L (17-59); Bilirubin,Total 2.9 mg/dL (0.2-1.3); Blood Urea Nitrogen 10 mg/dL (9-20); Calcium 9.1 mg/dL (8.4-10.2); Carbon Dioxide 22 mmol/L (22-30); Chloride 104 mmol/L (98-107); Estimated CRCL calculation 66 ml/min; Estimated Glomerular Filt Rate > 60; Glucose 126 mg/dL (65-110); Potassium 4.2 mmol/L (3.4-5.0); Sodium 133 mmol/L (137-145); Total Protein 7.0 g/dL (6.3-8.2)
--- NOTE | 2024-10-14 00:33 | ED.MALEGU ---
HPI - Male Genitourinary General Chief complaint: Urogenital-Male Stated complaint: my scrotum is purple Time Seen by Provider: 10/13/24 23:22 History of Present Illness HPI Narrative: 84-year-old male with history of CAD, chronic pain, right inguinal hernia, recently diagnosed renal mass with procedure outpatient upcoming for nephrectomy. Patient presents to the emergency room today with testicular swelling and scrotal erythema/bruising. Denies any direct traumatic injuries. States that he is currently holding his blood thinners given the upcoming procedure. Endorses urinary frequency and all his symptoms worsening today and starting just earlier this afternoon. No systemic features such as fever, chills, abdominal pain, nausea, vomiting, diarrhea constipation. No bloody bowel movements or dysuria, hematuria. No traumatic injuries. States he still has his right inguinal hernia is trying to get surgery for this but currently the plan is to get his kidney taking care of first per his care team. He is not any acute distress and ambulatory in triage without difficulty. Related Data Home Medications ?Medication ?Instructions ?Recorded ?Confirmed ?Last Taken ?Type amlodipine 5 mg-valsartan 160 mg 1 tablet PO DAILY 02/01/19 10/06/24 Unknown History tablet clopidogrel 75 mg tablet 75 mg PO DAILY 02/01/19 10/06/24 10/05/24 History isosorbide dinitrate 30 mg tablet 30 mg PO HS 02/01/19 10/06/24 10/05/24 History metoprolol tartrate 100 mg tablet 50 mg PO Q12H 02/01/19 10/06/24 Unknown History cetirizine 10 mg tablet (Zyrtec) 10 mg PO HS 08/02/19 10/06/24 10/05/24 History finasteride 5 mg tablet 5 mg PO HS 11/03/19 10/06/24 10/05/24 History atorvastatin 40 mg tablet 40 mg PO QPM 10/06/24 10/06/24 10/05/24 History pantoprazole 40 mg tablet,delayed 40 mg PO HS 10/06/24 10/06/24 10/05/24 History release tamsulosin 0.4 mg capsule 0.4 mg PO QPM 10/06/24 10/06/24 10/05/24 History Allergies Allergy/AdvReac Type Severity Reaction Status Date / Time aspirin AdvReac Intermediate Abdominal Verified 10/06/24 16:08 Pain Review of Systems Review of Systems: As reviewed above in [facility] Past Medical History Medical History SOB (shortness of breath) Gastric ulcer due to nonsteroidal antiinflammatory drug (NSAID) therapy Atherosclerosis of coronary artery bypass graft(s) without angina pectoris Chronic pain of both shoulders Vitamin D deficiency PUD (peptic ulcer disease) Primary osteoarthritis of both hips Polyosteoarthritis, unspecified Pain in right shoulder Other chronic pain Need for pneumococcal vaccine Atypical mole Visit for suture removal URI with cough and congestion GERD (gastroesophageal reflux disease) CAD (coronary artery disease) Family History Family History Father Hypertension, Onset Age: 76 Family history of cardiovascular disease, Onset Age: 76 Mother Family history of cardiovascular disease, Onset Age: 68 Social History Social History Smoking status: Never smoker Second hand tobacco smoke exposure: Yes Alcohol intake: former Substance use: never Substance use type: does not use Lack of Transportation: No Lack of Food: Never True Current Housing: I Do Not Have Housing Concerned About Future Housing: No Difficulty Paying Gas/Electric Bills: No Difficulty Paying for Meds: No Currently Unemployed: No Education: High School Diploma/GED Difficulty w/ Childcare or Family Care: No Spiritual care concerns: No Exam Narrative: GENERAL: [Well-appearing, well-nourished, and in no acute distress.] HEAD: [Normocephalic, atraumatic.] EYES: [PERRLA and EOMI.] ENT: Nares clear, no rhinorrhea or epistaxis. Mucous membranes moist. NECK: Supple. CHEST: [Clear to auscultation. No respiratory distress.] HEART: [Regular rate and rhythm]. No murmur heard. [Normal peripheral pulses.] ABDOMEN: [Soft, nondistended], [nontender], [No rigidity or guarding] : Right-sided inguinal hernia appreciated, no tenderness to palpation. Bilateral testicles descended, no testicular tenderness or epididymal tenderness. He does have what appears to be some fluid collections in his bilateral scrotal wall but overall soft and nondistended. Some light discoloration and bruising to the anterior inferior aspect of the scrotum without any active bleeding or signs of infection. No masses, tenderness or fluctuance with palpation. EXTREMITIES: Normal range of motion. [No edema.] SKIN: Warm, dry, no rash. NEURO: [No focal deficits]. Alert and oriented [x3.] PSYCH: [Normal mood and affect.] Course Vital Signs Vital signs: Vital Signs Temperature 36.7 C 10/13/24 23:24 Pulse Rate 75 10/13/24 23:24 Respiratory Rate 14 10/13/24 23:24 Blood Pressure 181/92 H 10/13/24 23:24 Pulse Oximetry 100 10/13/24 23:24 Oxygen Delivery Room Air 10/13/24 23:24 Temperature 36.7 C 10/13/24 23:24 Pulse Rate 69 10/14/24 01:47 Respiratory Rate 18 10/14/24 01:47 Blood Pressure 163/72 H 10/14/24 01:47 Pulse Oximetry 97 10/14/24 01:47 Oxygen Delivery Room Air 10/13/24 23:24 MDM - Male Genitourinary MDM Narrative Medical decision making narrative: 84-year-old male with history of CAD, chronic pain, right inguinal hernia, recently diagnosed renal mass with procedure outpatient upcoming for nephrectomy. Patient presents to the emergency room today with testicular swelling and scrotal erythema/bruising. Denies any direct traumatic injuries. States that he is currently holding his blood thinners given the upcoming procedure. Endorses urinary frequency and all his symptoms worsening today and starting just earlier this afternoon. No systemic features such as fever, chills, abdominal pain, nausea, vomiting, diarrhea constipation. No bloody bowel movements or dysuria, hematuria. No traumatic injuries. States he still has his right inguinal hernia is trying to get surgery for this but currently the plan is to get his kidney taking care of first per his care team. He is not any acute distress and ambulatory in triage without difficulty. Right-sided inguinal hernia appreciated, no tenderness to palpation. Bilateral testicles descended, no testicular tenderness or epididymal tenderness. He does have what appears to be some fluid collections in his bilateral scrotal wall but overall soft and nondistended. Some light discoloration and bruising to the anterior inferior aspect of the scrotum without any active bleeding or signs of infection. No masses, tenderness or fluctuance with palpation. Patient otherwise has reassuring vital signs without any significant derangements. Mild chronic hypertension, no tachycardia, fever, hypoxemia. Examination is reassuring but he does have some bruising to his anterior and inferior scrotal wall which is unclear in etiology. He is currently off of his blood thinners for his upcoming procedure. No direct trauma noted. Scrotal ultrasound was obtained as well as a CT scan of the abdomen pelvis with IV contrast for further delineation of potential sources. Laboratory studies urinalysis obtained. CT scan with IV contrast was read by radiology with recommendations are for a CTA to rule out active hemorrhage given that he has a right renal probable neoplasm with surrounding fluid consistent with previous findings. This CTA was done that shows no active hemorrhage in this was a triple phase contrast protocol recommendations per radiology. No acute findings otherwise. There is a hemorrhage extending into the right hemiscrotum from the retroperitoneal space. Ultrasound of the scrotum is unremarkable. Right indirect hernia also redemonstrated. I discussed these findings with the on-call urologist Dr. Sebastian and he was aware that these changes were likely to a core and expected. Given that there is no active hemorrhage and he is hemodynamically stable with normal labs improvement in his hemoglobin and no other symptoms he can be safely discharged with follow-up with Urology for renal cell carcinoma removal in the upcoming future. Patient is concerned that he might have a UTI so urinalysis is pending at this time and he will be discharged afterwards. Patient remains hemodynamically stable and a symptom free during ER visit. Patient made aware of the workup findings as well as the recommendations from Urology and was comfortable with the plan for outpatient follow-up. Medical Records Attestation: I reviewed the patient's medical records. Lab Data Attestation: I reviewed the patient's lab results. 10/13/24 23:34 10/13/24 23:34 Labs: Lab Results 10/13/24 10/14/24 Range/Units 23:34 06:54 WBC 8.8 (4.5-10.0) K/mm3 RBC 3.55 L (4.6-6.20) M/mm3 Hgb 11.2 L (14.0-18.0) g/dL Hct 33.0 L (42.0-52.0) % MCV 93.0 (80-100) fl MCH 31.5 (26-34) pg MCHC 33.9 (32-36) g/dl RDW 13.2 (11.5-14.5) % Plt Count 365 D (150-375) k/mm3 MPV 8.7 (7.4-10.4) fl Immature Gran % (Auto) 0.8 H (0-0.5) % Neut % (Auto) 73.0 (45.5-73.1) % Lymph % (Auto) 13.1 L (18.3-44.2) % [place] % (Auto) 10.7 H (2.6-8.5) % Eos % (Auto) 1.7 (0-4.4) % Baso % (Auto) 0.7 (0.2-1.2) % Lymph # (Auto) 1.15 (0.9-3.2) K/mm3 [place] # (Auto) 0.9 H (0.1-0.6) K/mm3 Eos # (Auto) 0.2 (0-0.3) K/mm3 Baso # (Auto) 0.1 (0.0-0.1) K/mm3 Abs Immat Gran (auto) 0.07 H (0.00-0.031) K/mm3 Absolute Neuts (auto) 6.4 (1.3-6.7) K/mm3 Absolute Nucleated RBC 0.000 (0.0-0.012) K/mm3 Nucleated RBC % 0.0 (0.0-0.2) % PT 13.3 (11.1-14.7) Seconds INR 1.0 APTT 34.2 (22.3-36.8) Seconds Sodium 133 L (137-145) mmol/L Potassium 4.2 (3.4-5.0) mmol/L Chloride 104 (98-107) mmol/L Carbon Dioxide 22 (22-30) mmol/L Anion Gap 7 (4-12) mmol/L BUN 10 D (9-20) mg/dL Creatinine 0.81 (0.7-1.3) mg/dL Estim Creat Clear Calc 66 ml/min Estimated GFR > 60 (59 - ) Glucose 126 H (65-110) mg/dL Calcium 9.1 (8.4-10.2) mg/dL Total Bilirubin 2.9 H (0.2-1.3) mg/dL AST 30 (17-59) U/L ALT 23 (6-50) U/L Alkaline Phosphatase 76 (38-126) U/L Total Protein 7.0 (6.3-8.2) g/dL Albumin 4.0 (3.5-5.1) g/dL Urine Color Yellow (Yellow) Urine Appearance Clear (Clear) Urine pH 6.5 (5.0-9.0) Ur Specific [place] > 1.045 H (1.001-1.035) Urine Protein Negative (Negative) mg/dL Urine Glucose (UA) Negative (Negative) mg/dL Urine Ketones Negative (Negative) mg/dL Ur Blood (Man) Negative (Negative) Urine Nitrate Negative (Negative) Urine Bilirubin Negative (Negative) Urine Urobilinogen 1.0 (<2.0) mg/dL Leukocyte Esterase Rfl Negative (Negative) MARY JO/UL Blood Type O Negative Antibody Screen Negative Imaging Data Attestation: I personally reviewed and interpreted this imaging study as follows: Discharge Plan Discharge Clinical Impression: Renal hematoma Renal cell carcinoma Qualifiers: Laterality: right Qualified Code(s): C64.1 - Malignant neoplasm of right kidney, except renal pelvis Patient Disposition: Home Condition: Stable Instructions: Antibiotic Form Additional Instructions: No signs of urinary infection, the previous hematoma around the right kidney is extending into the right-sided scrotum which is normal and anticipated. No active bleeding on the scans which is reassuring. We spoke to urologist and they want to see you for an outpatient follow-up to discuss next steps and surgery. Follow-up with your urologist for outpatient evaluation and surgery. Return with any emergent concerns or new symptoms. Patient Language: Tamazight Prescriptions: No Action clopidogrel 75 mg tablet 75 mg PO DAILY isosorbide dinitrate 30 mg tablet 30 mg PO HS metoprolol tartrate 100 mg tablet 50 mg PO Q12H Rx Instructions: Take 0.5 tablet(50)mg by oral route 2 times everyday with meals ; amlodipine-valsartan 5-160 mg tablet 1 tablet PO DAILY finasteride 5 mg tablet 5 mg PO HS cetirizine [Zyrtec] 10 mg tablet 10 mg PO HS Rx Instructions: Take 1 tablet orally daily; atorvastatin 40 mg tablet 40 mg PO QPM Rx Instructions: TAKE 1 TABLET BY MOUTH DAILY tamsulosin 0.4 mg capsule 0.4 mg PO QPM Rx Instructions: TAKE 1 CAPSULE BY MOUTH DAILY 30 MINUTES AFTER THE SAME MEAL pantoprazole 40 mg tablet,delayed release (DR/EC) 40 mg PO HS Rx Instructions: TAKE 1 TABLET BY MOUTH DAILY acetaminophen 325 mg Tablet 650 mg PO Q4H PRN (Reason: pain) Qty: 60 0RF docusate sodium 100 mg Capsule 100 mg PO BID Qty: 30 0RF oxycodone 5 mg tablet 5 mg PO Q6H PRN (Reason: pain) 3 Days Qty: 12 0RF metformin 500 mg tablet See Rx Instructions .ROUTE .COMPLEX Qty: 90 2RF Dose Instruction: TAKE 1 TABLET BY MOUTH DAILY Rx Instructions: TAKE 1 TABLET BY MOUTH DAILY Follow-up/Referrals: Gunnar Bahena MD [Primary Care Provider] - Time of Disposition: 07:11
[2024-10-14 00:35] VITALS: BP 139/75; PULSE 81; RESP 18; O2SAT 98
[2024-10-14 01:47] VITALS: BP 163/72; PULSE 69; RESP 18; O2SAT 97
[2024-10-14 07:02] LABS: Add Urine Microscopic? NO; Appearance Urine Clear (Clear); Glucose Urine UA Negative (Negative); Leukocyte Esterase Ur Negative LEU/UL (Negative); Nitrate Urine Negative (Negative); Specific Grav Ur > 1.045 (1.001-1.035)
[2024-10-14 07:27] VITALS: BP 136/78; PULSE 76; RESP 16; TEMP 36.6; O2SAT 97
== END 2024-10-14 07:29 | disposition home or self-care (01) ==
PROVIDERS: Emergency Provider Student in an Organized Health Care Education/Training Program; PCP Emergency Medicine
DX: C64.1 Malignant neoplasm of right kidney, except renal pelvis (principal); N28.89 Other specified disorders of kidney and ureter; K40.90 Unilateral inguinal hernia, without obstruction or gangrene, not specified as recurrent; I25.810 Atherosclerosis of coronary artery bypass graft(s) without angina pectoris; E55.9 Vitamin D deficiency, unspecified; M16.0 Bilateral primary osteoarthritis of hip; Z87.11 Personal history of peptic ulcer disease; Z77.22 Contact with and (suspected) exposure to environmental tobacco smoke (acute) (chronic); K80.20 Calculus of gallbladder without cholecystitis without obstruction; I71.21 Aneurysm of the ascending aorta, without rupture; I86.1 Scrotal varices; N43.3 Hydrocele, unspecified; Z79.02 Long term (current) use of antithrombotics/antiplatelets; Z79.899 Other long term (current) drug therapy; Z79.84 Long term (current) use of oral hypoglycemic drugs
CPT/HCPCS: 36415; 74174; 74177; 76870; 80053; 81003; 85025; 85610; 85730; 86850; 86900; 86901; 93976; 99284; Q9967

== ENCOUNTER 2024-11-01 16:14 | Emergency (ER) | payer MEDICARE, OTHER, SELFPAY ==
--- NOTE | ~2024-11-01 | CT_ITS ---
EXAMINATION: CT abdomen pelvis w con DATE: 11/01/2024 18:49 INDICATION: Right inguinal hernia TECHNIQUE: Computed tomography (CT) of the abdomen and pelvis was performed with 100 cc Omnipaque 350 intravenous contrast. The dose-length product was 1205.58 mGy-cm. Automated exposure control and iterative reconstruction technique were employed. COMPARISON: CT dated 10/14/2024. FINDINGS: Lung bases unremarkable. Heart size normal. No significant pleural or pericardial effusion. Large complex mass lower pole of the right kidney. This may represent hemorrhage or underlying mass with associated hemorrhage. There is a right inguinal hernia containing mostly fat. There are gallstones. There are liver and bilateral renal cysts. The pancreas, adrenal glands are unremarkable. The spleen is normal. Nonobstructive bowel gas pattern. There is atherosclerosis of the aorta without aneurysm. No acute osseous abnormality. There is a left total hip arthroplasty. There is severe lumbar spondylosis with dextroscoliosis. IMPRESSION: 1. Large complex exophytic right renal mass with rim enhancement measuring 8.6 x 12.9 x 8.5 cm, suspicious for malignancy until proven otherwise. 2: Right inguinal hernia containing fat. 3: Cholelithiasis. Reviewed, dictated and finalized at location O.
[2024-11-01 16:16] VITALS: BP 133/90; PULSE 86; RESP 16; TEMP 36.5; O2SAT 98
[2024-11-01 16:50] LABS: Hematocrit 38.3 % (42.0-52.0); Hemoglobin 12.4 g/dL (14.0-18.0); Immature Granulocyte Percent A 0.5 % (0-0.5); Lymphocytes Absolute Auto 0.80 K/mm3 (0.9-3.2); Mean Corpuscular HGB Conc 32.4 g/dl (32-36); Mean Corpuscular Hemoglobin 30.2 pg (26-34); Mean Corpuscular Volume 93.4 fl (80-100); Nucleated Red Blood Cells Absolute Auto 0.000 K/mm3 (0.0-0.012); Nucleated Red Blood Cells Perc 0.0 % (0.0-0.2); Platelet Count Result 317 k/mm3 (150-375); Red Blood Count 4.10 M/mm3 (4.6-6.20); White Blood Count 6.1 K/mm3 (4.5-10.0)
[2024-11-01 16:55] LABS: Alanine Aminotransferase 14 U/L (6-50); Albumin Level 4.1 g/dL (3.5-5.1); Alkaline Phosphatase 95 U/L (38-126); Anion Gap 8 mmol/L (4-12); Aspartate Amino Transferase 22 U/L (17-59); Bilirubin,Total 1.0 mg/dL (0.2-1.3); Blood Urea Nitrogen 12 mg/dL (9-20); Calcium 9.0 mg/dL (8.4-10.2); Carbon Dioxide 24 mmol/L (22-30); Chloride 103 mmol/L (98-107); Estimated CRCL calculation 65 ml/min; Estimated Glomerular Filt Rate > 60; Glucose 118 mg/dL (65-110); Lipase 77 U/L (23-300); Potassium 4.2 mmol/L (3.4-5.0); Sodium 135 mmol/L (137-145); Total Protein 7.2 g/dL (6.3-8.2)
[2024-11-01 16:58] LABS: Add Urine Microscopic? YES; Appearance Urine Cloudy (Clear); Glucose Urine UA Negative (Negative); Leukocyte Esterase Ur Negative LEU/UL (Negative); Nitrate Urine Negative (Negative); Non Pathogenic Casts 0-2; Specific Grav Ur 1.013 (1.001-1.035)
--- OUTSIDE RECORDS SUMMARY | 2024-11-01 17:10 | XMS_ITS | Clinical Summary ---
Author Organization [facility] [address] [facility] [address] Address [address] [place] [address] Care Team Providers Care Senior Loan Officer Name Role Phone Gunnar Bahena MD Primary [...] artery disease of n ative artery of [place] heart with stable angina pectoris 07/05/2017 Hyperlipidemia LDL goal <70 12/29/2016 History of bleeding ulcers 08/11/2016 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 Essential hypertension 05/15/2014 Overview (06/05/2016): Essential hypertension Adiposity 05/15/2014 Overview (06/05/2016): Obesity Resolved Problems Problem Noted Date Diagnosed Date Resolved Date Dyslipidemia 08/11/2016 03/21/2020 Encounters Date Type Department Care Team Description 08/08/2024 Orders Only [facility] Cardiology [address] [place] [address] Provider, MD Monik from Last [...] on file 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
--- OUTSIDE RECORDS SUMMARY | 2024-11-01 17:10 | XMS_ITS | Encounter Summary ---
Author Organization [facility] Healthcare Address [address] [place] [address] Care Team Providers Care Supervisor [employer] Placing Name Role Phone Gunnar Bahena MD Primary Care Provide r Encounter Details Date Type Department Care Team (Late st Contact Info) Description 12/02/2023 Orders Only [facility] Health Information Management [address] [place] [id number] Scanning, Provider Social History Tobacco Use Types Packs/Day Years Used Date Smoking Tobacco: Never Smokeless Tobacco: Never Alcohol Use Standard Drinks/Week Comments No 0 (1 standard drink = 0.6 oz pur e alcohol) Sex and Gender Information Value Date Recorded Sex Assigned at Not on file 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
--- OUTSIDE RECORDS SUMMARY | 2024-11-01 17:10 | XMS_ITS | Encounter Summary ---
Author Organization [facility] Healthcare Address [address] [place] [address] Care Team Providers Care Cloth Winder Name Role Phone Gunnar Bahena MD Primary Care Provide r Encounter Details Date Type Department Care Team (Late st Contact Info) Description 04/06/2024 Orders Only [facility] Health Information Management [address] [place] [id number] Scanning, Provider Social History Tobacco Use Types Packs/Day Years Used Date Smoking Tobacco: Never Smokeless Tobacco: Never Alcohol Use Standard Drinks/Week Comments No 0 (1 standard drink = 0.6 oz pur e alcohol) Sex and Gender Information Value Date Recorded Sex Assigned at Not on file 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 Gender Identity Not on file Sexual Orientation Not on file documented as of this encounter Plan of Treatment Not on file documented as of this encounter Procedures Procedure Name Priority Date/Time Associated Diagnosis Comments SCAN - LABS 04/06/2024 documented in this encounter Results * SCAN - LABS (04/06/2024) us Provider Scanning Final Result documented in this encounter Visit Diagnoses Not on filedocumented in this encounter Care Teams Cloth Winder Relationship Specialty Start Date End Date Gunnar Bahena MD [address] [place] [address] PCP - General 05/29/16 documented as of this encounter
--- NOTE | 2024-11-01 17:49 | ED.ABDPAIN ---
HPI - Abdominal Pain General Chief Complaint: Abdominal Pain Stated Complaint: abd pain Time Seen by Provider: 11/01/24 17:01 History of Present Illness HPI narrative: 84 y/o old male the with a history of hypertension, hyperlipidemia, GERD, CAD, DM, right inguinal hernia presents emergency department with right hernia pain. This is patient's 3rd visit to the ED for the same complaint. Patient was originally seen on 10/06/2024 for pain to the right hernia. Few days prior to the pain beginning he noted he lifted a heavy cooler and then a few days later began developing bulging and pain in the right inguinal region. CT was obtained which showed a right inguinal hernia, gallstones, possible renal carcinoma mass with possible hemorrhage. The patient was admitted to monitor H&H and hemodynamic status. He was discharged on 10/08 after hemoglobin stabilized. Plan was for him to follow-up with urology outpatient to workup for possible renal mass. Patient was then again seen on 10/14/2024 for persistent pain to his right inguinal region. CT and CTA of the abdomen pelvis showed persistent fat containing right inguinal hernia, there was hemorrhage extending into the right hemiscrotum for the retroperitoneal space. Urology was consulted and patient was deemed safe to be discharged home given he was hemodynamically stable in these findings were to be expected her recent history. The patient states he followed up with Urology, Dr. Cho, 5 days ago he reviewed the imaging with the patient and reported that the patient needs further imaging of the renal mass which is scheduled for the middle of October. The patient states today he developed increasing pain to his right inguinal region which prompted him to return to the emergency department. He states that previously the pain would occur when he was standing up and would improve when he was lying flat, however today the pain has been persistent no matter his position. He does not believe the hernia has increased in size and denies any skin changes. He denies swelling, bruising her pain to his scrotum or testicles. He is endorsing some urinary frequency and dysuria but denies hematuria or abdominal pain, fever, chills, vomiting. Denies changes in stool or obstipation. He has not followed up with a surgeon regarding the hernia. He states he has tried oxycodone and Tylenol without improvement in pain. Related Data Home Medications ?Medication ?Instructions ?Recorded ?Confirmed ?Last Taken ?Type amlodipine 5 mg-valsartan 160 mg 1 tablet PO DAILY 02/01/19 10/06/24 Unknown History tablet Held on 10/08/24. Instructions: Resume on 10/29/24. Do not resume until instructed to do so by your primary doctor. clopidogrel 75 mg tablet 75 mg PO DAILY 02/01/19 10/06/24 10/05/24 History Held on 10/08/24. Instructions: Resume on 10/29/24. Do not resume until instructed to do so by your primary doctor. isosorbide dinitrate 30 mg tablet 30 mg PO HS 02/01/19 10/06/24 10/05/24 History metoprolol tartrate 100 mg tablet 50 mg PO Q12H 02/01/19 10/06/24 Unknown History cetirizine 10 mg tablet (Zyrtec) 10 mg PO HS 08/02/19 10/06/24 10/05/24 History finasteride 5 mg tablet 5 mg PO HS 11/03/19 10/06/24 10/05/24 History atorvastatin 40 mg tablet 40 mg PO QPM 10/06/24 10/06/24 10/05/24 History pantoprazole 40 mg tablet,delayed 40 mg PO HS 10/06/24 10/06/24 10/05/24 History release tamsulosin 0.4 mg capsule 0.4 mg PO QPM 10/06/24 10/06/24 10/05/24 History Allergies Allergy/AdvReac Type Severity Reaction Status Date / Time aspirin AdvReac Intermediate Abdominal Verified 10/06/24 16:08 Pain Review of Systems Review of Systems: All systems reviewed & are unremarkable except as noted in HPI and below [facility] Past Medical History Medical History SOB (shortness of breath) Gastric ulcer due to nonsteroidal antiinflammatory drug (NSAID) therapy Atherosclerosis of coronary artery bypass graft(s) without angina pectoris Chronic pain of both shoulders Vitamin D deficiency PUD (peptic ulcer disease) Primary osteoarthritis of both hips Polyosteoarthritis, unspecified Pain in right shoulder Other chronic pain Need for pneumococcal vaccine Atypical mole Visit for suture removal URI with cough and congestion GERD (gastroesophageal reflux disease) CAD (coronary artery disease) Family History Family History Father Hypertension, Onset Age: 76 Family history of cardiovascular disease, Onset Age: 76 Mother Family history of cardiovascular disease, Onset Age: 68 Social History Social History Smoking status: Never smoker Second hand tobacco smoke exposure: Yes Alcohol intake: former Substance use: never Substance use type: does not use Lack of Transportation: No Lack of Food: Never True Current Housing: I Do Not Have Housing Concerned About Future Housing: No Difficulty Paying Gas/Electric Bills: No Difficulty Paying for Meds: No Currently Unemployed: No Education: High School Diploma/GED Difficulty w/ Childcare or Family Care: No Spiritual care concerns: No Exam Narrative: GENERAL: Well-appearing, well-nourished, and in no acute distress. HEAD: Normocephalic, atraumatic. EYES: EOMI. ENT: Nares clear, no rhinorrhea or epistaxis. Mucous membranes moist. NECK: Supple. CHEST: Clear to auscultation. No respiratory distress. HEART: Regular rate and rhythm. No murmur heard. Normal peripheral pulses. ABDOMEN: Normoactive bowel sounds. Abdomen soft with mild tenderness over the right inguinal region and palpable hernia. No overlying skin changes. Scrotal exam chaperoned by [employer] Marilyn is largely unremarkable with no tenderness to the testicles or epididymis, no ecchymosis or edema to the scrotum. EXTREMITIES: Normal range of motion. No edema. SKIN: Warm, dry, no rash. NEURO: No focal deficits. Alert and oriented x3 Course Vital Signs Vital signs: Vital Signs Temperature 97.7 F 11/01/24 16:16 Pulse Rate 86 11/01/24 16:16 Respiratory Rate 16 11/01/24 16:16 Blood Pressure 133/90 11/01/24 16:16 Pulse Oximetry 98 11/01/24 16:16 Oxygen Delivery Room Air 11/01/24 16:16 Temperature 97.7 F 11/01/24 16:16 Pulse Rate 86 11/01/24 16:16 Respiratory Rate 16 11/01/24 16:16 Blood Pressure 133/90 11/01/24 16:16 Pulse Oximetry 98 11/01/24 16:16 Oxygen Delivery Room Air 11/01/24 16:16 MDM - Abdominal Pain MDM Narrative Medical decision making narrative: 84-year-old male with known right inguinal hernia presents emergency department for persistent right inguinal hernia pain since today. See HPI for further history. Triage vitals are stable. Exam is notable for the above. CBC without leukocytosis. Hemoglobin is 12.4 which is improved from his baseline earlier this month which ranged from 9.3-11.2. Chemistries are unremarkable. UA without hematuria or UTI CT abdomen pelvis IMPRESSION: 1. Large complex exophytic right renal mass with rim enhancement measuring 8.6 x 12.9 x 8.5 cm, suspicious for malignancy until proven otherwise. 2: Right inguinal hernia containing fat. 3: Cholelithiasis. Patient updated on results. He received morphine with improvement in symptoms. I did consult Urology, Dr. Cho, regarding persistent right renal mass. Dr. De La Cruz is very aware of this patient and plans to have outpatient imaging performed later this month to evaluate for possible renal cell carcinoma versus hemorrhagic cyst. Given patient remains hemodynamically stable and hemoglobin is actually increased from recent labs, he agrees that patient is safe to be discharged home with outpatient follow-up. Patient continuously reiterates how he wants to be seen by a surgeon to get the hernia dressed given this is an ongoing issue and he has yet to be given a referral. I did discuss that I will provide him a referral for him to f/u outpatient. Pt voiced he wants it addressed more urgently. Discussed I can consult General surgery so they are aware of the patient's case but this can be followed up on an outpatient basis. Pt and son are appreciative of this. I discussed case with Dr. Houston who agrees that the patient call outpatient to schedule an appointment. Patient was given a referral and instructed to call tomorrow morning. He has trialed oxycodone without improvement, will trial a short course of [place] for home. He was given strict ED return precautions. Patient is agreeable with the plan verbalized understanding. Discharged in stable condition. Lab Data 11/01/24 16:37 11/01/24 16:37 Labs: Lab Results 11/01/24 11/01/24 Range/Units 16:37 16:49 WBC 6.1 (4.5-10.0) K/mm3 RBC 4.10 L (4.6-6.20) M/mm3 Hgb 12.4 L (14.0-18.0) g/dL Hct 38.3 L (42.0-52.0) % MCV 93.4 (80-100) fl MCH 30.2 (26-34) pg MCHC 32.4 (32-36) g/dl RDW 13.5 (11.5-14.5) % Plt Count 317 (150-375) k/mm3 MPV 8.4 (7.4-10.4) fl Immature Gran % (Auto) 0.5 (0-0.5) % Neut % (Auto) 74.3 H (45.5-73.1) % Lymph % (Auto) 13.1 L (18.3-44.2) % [place] % (Auto) 9.8 H (2.6-8.5) % Eos % (Auto) 1.6 (0-4.4) % Baso % (Auto) 0.7 (0.2-1.2) % Lymph # (Auto) 0.80 L (0.9-3.2) K/mm3 [place] # (Auto) 0.6 (0.1-0.6) K/mm3 Eos # (Auto) 0.1 (0-0.3) K/mm3 Baso # (Auto) 0.0 (0.0-0.1) K/mm3 Abs Immat Gran (auto) 0.03 (0.00-0.031) K/mm3 Absolute Neuts (auto) 4.6 (1.3-6.7) K/mm3 Absolute Nucleated RBC 0.000 (0.0-0.012) K/mm3 Nucleated RBC % 0.0 (0.0-0.2) % Sodium 135 L (137-145) mmol/L Potassium 4.2 (3.4-5.0) mmol/L Chloride 103 (98-107) mmol/L Carbon Dioxide 24 (22-30) mmol/L Anion Gap 8 (4-12) mmol/L BUN 12 (9-20) mg/dL Creatinine 0.82 (0.7-1.3) mg/dL Estim Creat Clear Calc 65 ml/min Estimated GFR > 60 (59 - ) Glucose 118 H (65-110) mg/dL Calcium 9.0 (8.4-10.2) mg/dL Total Bilirubin 1.0 (0.2-1.3) mg/dL AST 22 (17-59) U/L ALT 14 (6-50) U/L Alkaline Phosphatase 95 (38-126) U/L Total Protein 7.2 (6.3-8.2) g/dL Albumin 4.1 (3.5-5.1) g/dL Lipase 77 (23-300) U/L Urine Color Yellow (Yellow) Urine Appearance Cloudy H (Clear) Urine pH 7.5 (5.0-9.0) Ur Specific [place] 1.013 (1.001-1.035) Urine Protein Negative (Negative) mg/dL Urine Glucose (UA) Negative (Negative) mg/dL Urine Ketones Negative (Negative) mg/dL Ur Blood (Man) Negative (Negative) Urine Nitrate Negative (Negative) Urine Bilirubin Negative (Negative) Urine Urobilinogen 0.2 (<2.0) mg/dL Leukocyte Esterase Rfl Negative (Negative) MARY JO/UL Urine RBC 0-2 (0-2) /hpf Urine WBC 0-5 (0-3) /hpf Ur Squamous Epith Cells None seen (Few) /hpf Urine Bacteria None seen /hpf Urine Casts 0-2 Imaging Data Radiologist's impression: ITS Impressions Abdomen/Pelvis CT 11/01/24 18:55 IMPRESSION: 1. Large complex exophytic right renal mass with rim enhancement measuring 8.6 x 12.9 x 8.5 cm, suspicious for malignancy until proven otherwise. 2: Right inguinal hernia containing fat. 3: Cholelithiasis. Discharge Plan Discharge Clinical Impression: Inguinal hernia, right, Renal mass, right Patient Disposition: Home Condition: Stable Instructions: Antibiotic Form, Inguinal Hernia (ED) Additional Instructions: Please take the pain medications as needed. Follow-up closely with the general surgeon regarding your hernia and continue following with your urologist regarding your renal mass. Return to the emergency department if he develops significantly worsening pain, fever, vomiting, your unable to pass gas, or other concerning symptoms. Patient Language: Slovak Prescriptions: New hydrocodone-acetaminophen 5-325 mg tablet 1 tablet PO Q8H PRN (Reason: pain) Qty: 14 0RF No Action clopidogrel 75 mg tablet 75 mg PO DAILY isosorbide dinitrate 30 mg tablet 30 mg PO HS metoprolol tartrate 100 mg tablet 50 mg PO Q12H Rx Instructions: Take 0.5 tablet(50)mg by oral route 2 times everyday with meals ; amlodipine-valsartan 5-160 mg tablet 1 tablet PO DAILY finasteride 5 mg tablet 5 mg PO HS cetirizine [Zyrtec] 10 mg tablet 10 mg PO HS Rx Instructions: Take 1 tablet orally daily; atorvastatin 40 mg tablet 40 mg PO QPM Rx Instructions: TAKE 1 TABLET BY MOUTH DAILY tamsulosin 0.4 mg capsule 0.4 mg PO QPM Rx Instructions: TAKE 1 CAPSULE BY MOUTH DAILY 30 MINUTES AFTER THE SAME MEAL pantoprazole 40 mg tablet,delayed release (DR/EC) 40 mg PO HS Rx Instructions: TAKE 1 TABLET BY MOUTH DAILY acetaminophen 325 mg Tablet 650 mg PO Q4H PRN (Reason: pain) Qty: 60 0RF docusate sodium 100 mg Capsule 100 mg PO BID Qty: 30 0RF oxycodone 5 mg tablet 5 mg PO Q6H PRN (Reason: pain) 3 Days Qty: 12 0RF metformin 500 mg tablet See Rx Instructions .ROUTE .COMPLEX Qty: 90 2RF Dose Instruction: TAKE 1 TABLET BY MOUTH DAILY Rx Instructions: TAKE 1 TABLET BY MOUTH DAILY Follow-up/Referrals: Gunnar Bahena MD [Primary Care Provider, Internal Medicine] Stan Cho MD [Physician, Urology] Marc Houston MD [Physician, General Surgery]
[2024-11-01] MEDS: MORPHINE SULFATE (*CRX) 4 MG/ML INJ 2 MG IV PUSH (18:01)
== END 2024-11-01 20:26 | disposition home or self-care (01) ==
PROVIDERS: Emergency Medicine; Emergency Provider Physician Assistant; PCP Emergency Medicine
DX: K40.90 Unilateral inguinal hernia, without obstruction or gangrene, not specified as recurrent (principal); N28.89 Other specified disorders of kidney and ureter; I25.810 Atherosclerosis of coronary artery bypass graft(s) without angina pectoris; I10 Essential (primary) hypertension; E11.9 Type 2 diabetes mellitus without complications; E55.9 Vitamin D deficiency, unspecified; K21.9 Gastro-esophageal reflux disease without esophagitis; M19.90 Unspecified osteoarthritis, unspecified site; Z87.11 Personal history of peptic ulcer disease; Z77.22 Contact with and (suspected) exposure to environmental tobacco smoke (acute) (chronic); K80.20 Calculus of gallbladder without cholecystitis without obstruction; Z79.02 Long term (current) use of antithrombotics/antiplatelets; Z79.899 Other long term (current) drug therapy; Z79.84 Long term (current) use of oral hypoglycemic drugs
CPT/HCPCS: 36415; 74177; 80053; 81001; 83690; 85025; 96374; 99284; J2270; Q9967

== ENCOUNTER 2024-11-05 05:27 | Emergency (ER) | payer MEDICARE, OTHER, SELFPAY ==
--- NOTE | ~2024-11-05 | XR_ITS ---
EXAMINATION: XR chest 2V, 11/05/2024 6:21 CDT HISTORY: LARA, tingling COMPARISON: No comparisons available. Technique: 2 views obtained. Findings: Scattered calcified granulomas in the lungs. No pneumothorax. Heart is normal size. Mediastinal and hilar contours are within normal limits. Poststernotomy. Impression: No acute cardiopulmonary abnormality. Reviewed, dictated and finalized at location A. Impression: No acute cardiopulmonary abnormality.
--- NOTE | ~2024-11-05 | CT_ITS ---
EXAMINATION: CT brain wo sharee, 11/05/2024 5:49 CDT HISTORY: LARA, facial tingling COMPARISON: No comparisons available. Technique: Axial images obtained of the brain without contrast. One or more of the following dose reduction techniques were used: automated exposure control, adjustment of the mA and/or kV according to patient size, use of iterative reconstruction technique. Findings: No acute infarct or parenchymal hemorrhage. No abnormal mass or mass effect. No midline shift. No extra-axial fluid collections. No hydrocephalus. Mastoid air cells unremarkable. Sinuses and orbits unremarkable. No acute fracture. No significant facial or scalp soft tissue swelling evident. No radiopaque foreign body is seen. Impression: 1.No acute intracranial abnormality. Reviewed, dictated and finalized at location A. Impression: 1.No acute intracranial abnormality.
--- OUTSIDE RECORDS SUMMARY | 2024-11-05 05:29 | XMS_ITS | Clinical Summary ---
Author Organization [facility] [address] [facility] [address] Address [address] [place] [address] Care Team Providers Care Plant Operator/Shift Supervisor Name Role Phone Gunnar Bahena MD [...] artery disease of n ative artery of [place] heart with stable angina pectoris 07/05/2017 Hyperlipidemia LDL goal <70 12/29/2016 History of bleeding ulcers 08/11/2016 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 Essential hypertension 05/15/2014 Overview (06/05/2016): Essential hypertension Adiposity 05/15/2014 Overview (06/05/2016): Obesity Resolved Problems Problem Noted Date Diagnosed Date Resolved Date Dyslipidemia 08/11/2016 03/21/2020 Encounters Date Type Department Care Team Description 08/08/2024 Orders Only [facility] Cardiology [address] [place] [address] Provider, MD Monik from Last [...] on file 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[employer] Gender Identity Not on file Sexual Orientation [...] 2024 9, 12/01/2017, 12/24/2016, Additional history exists Insurance MEDICARE [facility] Member Subscriber Plan / Payer (Ef fective 2022-Present) Name:Milagro Churchill Relation to Subscriber:Self Name:Milagro Churchill Payer ID:[id number] (NAIC) Type:COMMERCIAL Address: [address] [place] [phone] MEDICARE [facility] Member Subscriber Plan / Payer (Ef fective 2022-Present) Name:Milagro Churchill Relation to Subscriber:Self Name:Milagro Churchill Payer ID:[id number] (NAIC) Type:COMMERCIAL Address: [facility] [id number] [place] [phone] Care Teams Plant Operator/Shift Supervisor Relationship Specialty Start Date End Date Gunnar Bahena MD [address] [place] [address] PCP - General 05/29/16
--- OUTSIDE RECORDS SUMMARY | 2024-11-05 05:29 | XMS_ITS | Encounter Summary ---
Author Organization [facility] Address [address] [place] [address] Care Team Providers Care Dobby Loom Chain Pegger Name Role Phone Gunnar Bahena MD Primary Care Provide r Encounter Details Date Type Department Care Team (Late st Contact Info) Description 04/06/2024 Orders Only [facility] Health Information Management [address] [place] [id number] Scanning, Provider Social History Tobacco Use Types Packs/Day Years Used Date Smoking Tobacco: Never Smokeless Tobacco: Never Alcohol Use Standard Drinks/Week Comments No 0 (1 standard drink = 0.6 oz pur e alcohol) Sex and Gender Information Value Date Recorded Sex Assigned at Not on file 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
[2024-11-05 05:33] VITALS: BP 165/73; PULSE 95; RESP 18; TEMP 36.6; O2SAT 99
[2024-11-05 05:44] VITALS: PULSE 85
--- NOTE | 2024-11-05 05:48 | ECG_ITS ---
Test Date: 2024-11-05 06:12:09 Measurements Intervals [place] Rate: 79 P: 17 [place]: 194 QRS: 1 QRSD: 84 T: 9 QT: 356 QTc: 409 Interpretive Statements SINUS RHYTHM NONSPECIFIC ST- T WAVE CHANGES No previous ECG available for comparison Electronically Signed On 11-05-2024 16:05:15 CDT by Paul Mejia M.D.
[2024-11-05 05:49] VITALS: RESP 18; O2SAT 98
[2024-11-05 06:05] LABS: Hematocrit 36.5 % (42.0-52.0); Hemoglobin 12.0 g/dL (14.0-18.0); Immature Granulocyte Percent A 0.6 % (0-0.5); Lymphocytes Absolute Auto 0.67 K/mm3 (0.9-3.2); Mean Corpuscular HGB Conc 32.9 g/dl (32-36); Mean Corpuscular Hemoglobin 30.7 pg (26-34); Mean Corpuscular Volume 93.4 fl (80-100); Nucleated Red Blood Cells Absolute Auto 0.000 K/mm3 (0.0-0.012); Nucleated Red Blood Cells Perc 0.0 % (0.0-0.2); Platelet Count Result 276 k/mm3 (150-375); Red Blood Count 3.91 M/mm3 (4.6-6.20); White Blood Count 6.2 K/mm3 (4.5-10.0)
[2024-11-05 06:19] LABS: Alanine Aminotransferase 15 U/L (6-50); Albumin Level 3.9 g/dL (3.5-5.1); Alkaline Phosphatase 81 U/L (38-126); Anion Gap 9 mmol/L (4-12); Aspartate Amino Transferase 32 U/L (17-59); Bilirubin,Total 1.5 mg/dL (0.2-1.3); Blood Urea Nitrogen 11 mg/dL (9-20); Calcium 9.3 mg/dL (8.4-10.2); Carbon Dioxide 23 mmol/L (22-30); Chloride 102 mmol/L (98-107); Estimated CRCL calculation 68 ml/min; Estimated Glomerular Filt Rate > 60; Glucose 148 mg/dL (65-110); Magnesium 2.0 mg/dL (1.6-2.3); Potassium 4.0 mmol/L (3.4-5.0); Sodium 134 mmol/L (137-145); Total Protein 6.9 g/dL (6.3-8.2)
[2024-11-05 07:01] VITALS: BP 119/79; PULSE 74; RESP 20; O2SAT 100
--- NOTE | 2024-11-05 07:05 | ED.GENADULT ---
HPI - General Adult General Chief complaint: Unspecified Stated complaint: face and shoulders are flushed Time Seen by Provider: 11/05/24 06:55 History of Present Illness HPI narrative: 84-year-old male present to the emergency department for evaluation for a flushed sensation over his face. Patient states when he woke up he had this sensation. Patient states that feels like a increase in his blood pressure that is the same as ?when you get upset?. Patient states that this symptom is unchanged since he initially arrived. Patient denies any associated chest pain or shortness of breath. Patient's face is not flushed. Patient is present with no murmurs. Patient does have previous history of coronary disease, GERD Related Data Home Medications ?Medication ?Instructions ?Recorded ?Confirmed ?Last Taken ?Type amlodipine 5 mg-valsartan 160 mg 1 tablet PO DAILY 02/01/19 10/06/24 Unknown History tablet Held on 10/08/24. Instructions: Resume on 10/29/24. Do not resume until instructed to do so by your primary doctor. clopidogrel 75 mg tablet 75 mg PO DAILY 02/01/19 10/06/24 10/05/24 History Held on 10/08/24. Instructions: Resume on 10/29/24. Do not resume until instructed to do so by your primary doctor. isosorbide dinitrate 30 mg tablet 30 mg PO HS 02/01/19 10/06/24 10/05/24 History metoprolol tartrate 100 mg tablet 50 mg PO Q12H 02/01/19 10/06/24 Unknown History cetirizine 10 mg tablet (Zyrtec) 10 mg PO HS 08/02/19 10/06/24 10/05/24 History finasteride 5 mg tablet 5 mg PO HS 11/03/19 10/06/24 10/05/24 History atorvastatin 40 mg tablet 40 mg PO QPM 10/06/24 10/06/24 10/05/24 History pantoprazole 40 mg tablet,delayed 40 mg PO HS 10/06/24 10/06/24 10/05/24 History release tamsulosin 0.4 mg capsule 0.4 mg PO QPM 10/06/24 10/06/24 10/05/24 History Allergies Allergy/AdvReac Type Severity Reaction Status Date / Time aspirin AdvReac Intermediate Abdominal Verified 11/05/24 05:44 Pain Review of Systems Review of Systems: All systems reviewed & are unremarkable except as noted in HPI and below PMFSH Past Medical History Medical History SOB (shortness of breath) Gastric ulcer due to nonsteroidal antiinflammatory drug (NSAID) therapy Atherosclerosis of coronary artery bypass graft(s) without angina pectoris Chronic pain of both shoulders Vitamin D deficiency PUD (peptic ulcer disease) Primary osteoarthritis of both hips Polyosteoarthritis, unspecified Pain in right shoulder Other chronic pain Need for pneumococcal vaccine Atypical mole Visit for suture removal URI with cough and congestion GERD (gastroesophageal reflux disease) CAD (coronary artery disease) Family History Family History Father Hypertension, Onset Age: 76 Family history of cardiovascular disease, Onset Age: 76 Mother Family history of cardiovascular disease, Onset Age: 68 Social History Social History Smoking status: Never smoker Second hand tobacco smoke exposure: Yes Alcohol intake: former Substance use: never Substance use type: does not use Lack of Transportation: No Lack of Food: Never True Current Housing: I Do Not Have Housing Concerned About Future Housing: No Difficulty Paying Gas/Electric Bills: No Difficulty Paying for Meds: No Currently Unemployed: No Education: High School Diploma/GED Difficulty w/ Childcare or Family Care: No Spiritual care concerns: No Exam Narrative: APPEARANCE: Well appearing, no pain, no distress, well-nourished. HEAD: normocephalic, atraumatic. EYES: PERRLA/EOMI, conjunctivae clear. NOSE: Normal no drainage EARS:TMS clear with good light reflex. THROAT: Pharynx clear, no exudate. NECK: Supple. No adenopathy, no masses. RESPIRATORY: Airway patent, respirations nonlabored. Clear to auscultation bilaterally, no rales, rhonchi, wheezing. CARDIOVASCULAR: Regular rate and rhythm without murmurs rubs or gallops. ABDOMINAL: Soft, nontender, nondistended, normal bowel sounds MUSCULOSKELETAL: Moves all extremities. Strength/ROM intact, No edema, No calf tenderness. NEURO: Alert. Cranial nerves II through XII intact. Grossly intact SKIN: Warm, dry. Normal Color Course Vital Signs Vital signs: Vital Signs Temperature 97.8 F 11/05/24 05:33 Pulse Rate 95 11/05/24 05:33 Respiratory Rate 18 11/05/24 05:33 Blood Pressure 165/73 H 11/05/24 05:33 Pulse Oximetry 99 11/05/24 05:33 Oxygen Delivery Room Air 11/05/24 05:33 Temperature 97.8 F 11/05/24 05:33 Pulse Rate 64 11/05/24 07:21 Respiratory Rate 14 11/05/24 07:21 Blood Pressure 141/83 H 11/05/24 07:21 Pulse Oximetry 99 11/05/24 07:21 Oxygen Delivery Room Air 11/05/24 05:33 Medical Decision Making MDM Narrative Medical decision making narrative: 84-year-old male presents to the emergency department for evaluation for a flushed feeling. Patient is afebrile with no leukocytosis hemoglobin of 12.0. No acute abnormalities on the patient's CMP. Patient had a negative head CT and chest x-ray as well an EKG shows normal sinus rhythm. Patient was able to ambulate at baseline and patient has no further complaints. Patient states his face does feel flushed but patient's face is not flushed. Differential Diagnosis Differential Diagnosis: ACS, hypertension, intracranial abnormality Vital Signs Vital Signs: Vital Signs Temperature 97.8 F 11/05/24 05:33 Pulse Rate 95 11/05/24 05:33 Respiratory Rate 18 11/05/24 05:33 Blood Pressure 165/73 H 11/05/24 05:33 Pulse Oximetry 99 11/05/24 05:33 Oxygen Delivery Room Air 11/05/24 05:33 Temperature 97.8 F 11/05/24 05:33 Pulse Rate 64 11/05/24 07:21 Respiratory Rate 14 11/05/24 07:21 Blood Pressure 141/83 H 11/05/24 07:21 Pulse Oximetry 99 11/05/24 07:21 Oxygen Delivery Room Air 11/05/24 05:33 Lab Data Lab results reviewed: Yes I reviewed the patient's lab results. 11/05/24 05:59 11/05/24 05:59 Labs: Lab Results 11/05/24 Range/Units 05:59 WBC 6.2 (4.5-10.0) K/mm3 RBC 3.91 L (4.6-6.20) M/mm3 Hgb 12.0 L (14.0-18.0) g/dL Hct 36.5 L (42.0-52.0) % MCV 93.4 (80-100) fl MCH 30.7 (26-34) pg MCHC 32.9 (32-36) g/dl RDW 13.3 (11.5-14.5) % Plt Count 276 (150-375) k/mm3 MPV 8.7 (7.4-10.4) fl Immature Gran % (Auto) 0.6 H (0-0.5) % Neut % (Auto) 76.6 H (45.5-73.1) % Lymph % (Auto) 10.8 L (18.3-44.2) % [place] % (Auto) 9.8 H (2.6-8.5) % Eos % (Auto) 1.6 (0-4.4) % Baso % (Auto) 0.6 (0.2-1.2) % Lymph # (Auto) 0.67 L (0.9-3.2) K/mm3 [place] # (Auto) 0.6 (0.1-0.6) K/mm3 Eos # (Auto) 0.1 (0-0.3) K/mm3 Baso # (Auto) 0.0 (0.0-0.1) K/mm3 Abs Immat Gran (auto) 0.04 H (0.00-0.031) K/mm3 Absolute Neuts (auto) 4.8 (1.3-6.7) K/mm3 Absolute Nucleated RBC 0.000 (0.0-0.012) K/mm3 Nucleated RBC % 0.0 (0.0-0.2) % Sodium 134 L (137-145) mmol/L Potassium 4.0 (3.4-5.0) mmol/L Chloride 102 (98-107) mmol/L Carbon Dioxide 23 (22-30) mmol/L Anion Gap 9 (4-12) mmol/L BUN 11 (9-20) mg/dL Creatinine 0.78 (0.7-1.3) mg/dL Estim Creat Clear Calc 68 ml/min Estimated GFR > 60 (59 - ) Glucose 148 H (65-110) mg/dL Calcium 9.3 (8.4-10.2) mg/dL Magnesium 2.0 (1.6-2.3) mg/dL Total Bilirubin 1.5 H (0.2-1.3) mg/dL AST 32 (17-59) U/L ALT 15 (6-50) U/L Alkaline Phosphatase 81 (38-126) U/L Total Protein 6.9 (6.3-8.2) g/dL Albumin 3.9 (3.5-5.1) g/dL TSH (Reflex) 1.210 (0.465-4.68) uIU/mL Imaging Data Radiologist's impression: Overnight read CT head: No acute intracranial abnormality. Discharge Plan Discharge Clinical Impression: Sinus pressure Patient Disposition: Home Condition: Stable Instructions: Antibiotic Form Additional Instructions: Continue to have close follow-up with your primary care physician. If you have any worsening symptoms then please call or return to the emergency department. Patient Language: Slovenian Prescriptions: No Action clopidogrel 75 mg tablet 75 mg PO DAILY isosorbide dinitrate 30 mg tablet 30 mg PO HS metoprolol tartrate 100 mg tablet 50 mg PO Q12H Rx Instructions: Take 0.5 tablet(50)mg by oral route 2 times everyday with meals ; amlodipine-valsartan 5-160 mg tablet 1 tablet PO DAILY finasteride 5 mg tablet 5 mg PO HS cetirizine [Zyrtec] 10 mg tablet 10 mg PO HS Rx Instructions: Take 1 tablet orally daily; atorvastatin 40 mg tablet 40 mg PO QPM Rx Instructions: TAKE 1 TABLET BY MOUTH DAILY tamsulosin 0.4 mg capsule 0.4 mg PO QPM Rx Instructions: TAKE 1 CAPSULE BY MOUTH DAILY 30 MINUTES AFTER THE SAME MEAL pantoprazole 40 mg tablet,delayed release (DR/EC) 40 mg PO HS Rx Instructions: TAKE 1 TABLET BY MOUTH DAILY acetaminophen 325 mg Tablet 650 mg PO Q4H PRN (Reason: pain) Qty: 60 0RF docusate sodium 100 mg Capsule 100 mg PO BID Qty: 30 0RF oxycodone 5 mg tablet 5 mg PO Q6H PRN (Reason: pain) 3 Days Qty: 12 0RF hydrocodone-acetaminophen 5-325 mg tablet 1 tablet PO Q8H PRN (Reason: pain) Qty: 14 0RF metformin 500 mg tablet See Rx Instructions .ROUTE .COMPLEX Qty: 90 2RF Dose Instruction: TAKE 1 TABLET BY MOUTH DAILY Rx Instructions: TAKE 1 TABLET BY MOUTH DAILY Follow-up/Referrals: Gunnar Bahena MD [Primary Care Provider, Internal Medicine]
[2024-11-05 07:21] VITALS: BP 141/83; PULSE 64; RESP 14; O2SAT 99
[2024-11-05 08:59] LABS: Thyroid Stimulating Hormone Reflex 1.210 uIU/mL (0.465-4.68)
== END 2024-11-05 10:33 | disposition home or self-care (01) ==
PROVIDERS: Emergency Medicine; Emergency Provider Emergency Medicine; PCP Emergency Medicine
DX: J34.89 Other specified disorders of nose and nasal sinuses (principal); I25.10 Atherosclerotic heart disease of native coronary artery without angina pectoris; E55.9 Vitamin D deficiency, unspecified; K21.9 Gastro-esophageal reflux disease without esophagitis; M16.0 Bilateral primary osteoarthritis of hip; Z77.22 Contact with and (suspected) exposure to environmental tobacco smoke (acute) (chronic); Z79.02 Long term (current) use of antithrombotics/antiplatelets; Z79.899 Other long term (current) drug therapy; Z79.84 Long term (current) use of oral hypoglycemic drugs
CPT/HCPCS: 36415; 70450; 71046; 80053; 83735; 84443; 85025; 93005; 99284

== ENCOUNTER 2024-11-28 01:44 | Day surgery (SDC) | payer MEDICARE, OTHER, SELFPAY ==
[2024-11-16 13:59] VITALS: BMI 27.5
--- NOTE | 2024-11-16 14:53 | PC.NURSE ---
[facility] has started construction of its new state of the art ER which will open Spring 2026. With this, we anticipate parking may be a challenge for some our surgical patients and families. Parking spaces are limited but are available for all Surgical, obstetrics, and ER patients sharing this lot. If you arrive and find you are having a hard time finding a parking space, please note that we understand the challenges, please drive around the hospital and park near Hospital Entrance 1. When you enter this entrance, you can ask a volunteer to direct or take you back to the surgical waiting area to check in. We appreciate everyone?s understanding of these expected challenges while we build for your future. Report to the Outpatient Waiting Room, entrance under the green pavilion located off [address], at time ___10:00am__ on date ___11/28/24__. Planned Procedure Time: ___12:00PM___.? Time changes happen often and if your time is changed the preop area will call you the afternoon before. - You and your visitor will be asked to self-screen and do not enter if you have any COVID symptoms. Please call surgeon if you need to reschedule. - A mask is optional within the hospital at this time. Patients may have clear liquids (water, carbonated beverages, clear teas, apple juice) until 3 hours prior to surgery (9:00AM) with a maximum of 20 ounces. - No food from midnight until time of surgery and no smoking, or chewing tobacco (or any form of nicotine). No chewing gum, candy or mints. Take only the following medications with a SIP of water on the morning of surgery: ____METOPROLOL DO NOT STOP ANY OF YOUR OTHER PRESCRIPTION MEDICATIONS PRIOR TO SURGERY EXCEPT THE FOLLOWING Medications to discontinue per physician ___CONTINUE TO HOLD PLAVIX PER CARDIOLOGY INSTRUCTIONS Date to take last dose Please no make-up, nail slovak, hairspray, perfume, deodorant, or body powder the day of surgery.? No jewelry (including any body piercings) or valuables the day of surgery, leave them at home.? Please take a shower or bath the night before, or the morning of, surgery with an antibacterial soap.? Wear comfortable, loose fitting clothing.? Children are encouraged to wear pajamas. - Jewelry must be removed prior to entering the operating room.? Rings and piercings that are not removed may be cut off. - The hospital will not accept responsibility for valuables.? - Please leave all valuables, including medications, at home the day of surgery. If you are going home after surgery, a licensed charter bus driver must drive you home.? - NO public transportation without another adult if you receive anesthesia. - We recommend that an adult stay with you for 24 hours following discharge. - We also recommend that you do not drive, make important decision, drink alcoholic beverages, or take any drugs that were not prescribed by your health care provider for at least 24 hours after your discharge time. Follow any additional instructions given to you from your surgeon. Telephone instructions given to ___PATIENT and asked if any additional questions and then verbalized understanding. Patient advised to call surgeon office or pre surgery nurse liaison [phone] if any additional questions.
[2024-11-28] VITALS (13 sets, daily range): BP systolic 126–166; BP diastolic 56–76; PULSE 52–68; RESP 11–20; TEMP 36.2–36.9; O2SAT 92–100
--- OUTSIDE RECORDS SUMMARY | 2024-11-28 01:47 | XMS_ITS | Data Portability ---
Author Organization [place] - [facility], Main Office Address [address] [place] [address] Care Team Providers Care Executive Administrator Name Role Phone GALLITO PARRY Primary Care Provider GALLITO PARRY Referring Provider Assessment Encounter Date Assessment Date Assessment LastModified by Organization Details LastModified Time 09/27/2023 09/27/2023 the patient has severe primary osteoarthritis right knee joint under sterile conditions at his request I injected the patient's right knee joint in the office with 4 cc of 0.5% Marcaine and 20 mg of Kenalog. Patient tolerated procedure well. We can do this again in 3 months if necessary he will follow up as needed he voiced understanding and agrees with the above plan he will call for any further problems difficulties or questions. Not available 09/27/2023 09:08:02 12/28/2023 12/28/2023 The patient has severe primary osteoarthritis of the right knee joint. Under sterile conditions at his request I injected the patient's right knee joint in the office with 4 cc of 0.5% bupivacaine and 20 mg of Kenalog. Patient tolerated procedure well. His x-rays today shows fairly stable osteoarthritis he would rather get by with conservative measures would like to avoid total knee arthroplasty. I will see him back in 3 months if necessary he voiced understanding and agreed with the above plan he will call for any further problems difficulties or questions. Not available 12/28/2023 14:43:05 03/30/2024 03/30/2024 The patient has severe primary osteoarthritis right knee joint as described. Under sterile conditions I injected the patient's right knee joint in the office with 4 cc 0.5% bupivacaine and 20 mg of Kenalog. Patient tolerated procedure well. I will see him back as needed we can do this again in 3 months if necessary he voiced understanding and agreed with the above plan will call for any further problems difficulties or questions. Not available 03/30/2024 11:03:09 06/23/2024 06/23/2024 The patient has severe primary osteoarthritis right knee joint. Under sterile conditions I injected the patient's right knee joint in the office today with 4 cc of 0.5% Marcaine and 20 mg of Kenalog. Patient tolerated procedure well. I will see him back as needed we can do this again in 3 months if necessary. He voiced understanding agrees above plan he will continue with current conservative measures and call for any further problems difficulties or questions. Not available 06/23/2024 11:54:06 09/22/2024 09/22/2024 The patient has severe primary osteoarthritis right knee joint as described. At his request under sterile conditions I injected the patient's right knee joint in the office with 4 cc of 0.5% bupivacaine and 20 mg of Kenalog. The patient tolerated the procedure well. I will see him back as needed we can do this again in 3 months if necessary voiced understanding agrees above plan call for any further problems difficulties or questions. Not available 09/22/2024 10:48:56 Plan of Treatment Reminders Order Date Submit Date Provider Last Modified By Organization Details Last Modified Time Details Appointments Any 5 2024 08:00A MENDOZA Thompson Not available Not available Not available Lab None recorded. Referral None recorded. Procedures injection /aspirati on joint/bur sa (PROC) 2024 025 [email or web address] In-Office Order, Internal Use Only DO Not Attach Compendium DO Not Attach Compendium, Do Not Delete/merge, [id number] 09/22/2024 10:38:26 injection /aspirati on joint/bur sa (PROC) 2024 025 [email or web address] In-Office Order, Internal Use Only DO Not Attach Compendium DO Not Attach Compendium, Do Not Delete/merge, [id number] 06/23/2024 11:41:19 injection /aspirati on joint/bur sa (PROC) 2024 025 [email or web address] In-Office Order, Internal Use Only DO Not Attach Compendium DO Not Attach Compendium, Do Not Delete/merge, [id number] 03/30/2024 10:56:50 injection /aspirati on joint/bur sa (PROC) 2023 024 [email or web address] In-Office Order, Internal Use Only DO Not Attach Compendium DO Not Attach Compendium, Do Not Delete/merge, [id number] 12/28/2023 14:23:35 injection /aspirati on joint/bur sa (PROC) - in office procedure , administe red by provider 2023 024 [email or web address] In-Office Order, Internal Use Only DO Not Attach Compendium DO Not Attach Compendium, Do Not Delete/merge, 09/27/2023 09:02:23 Surgeries None recorded. Imaging XR, knee 2023 024 [email or web address] [facility] [place], [address], [place], [address], 12/28/2023 14:55:40 Medication Orders bupivacai ne HCl 0.5 % (5 mg/mL) injection solution 2024 025 [email or web address] [facility] #27701, [address], [place], [id number], 09/22/2024 12:55:01 Kenalog 10 mg/mL suspensio n for injection 2024 025 [email or web address] [facility] #73975, [address], [place], [id number], 09/22/2024 12:55:01 bupivacai ne HCl 0.5 % (5 mg/mL) injection solution 2024 025 [email or web address] [facility] #49351, [address], [place], [id number], 06/23/2024 12:27:02 Kenalog 10 mg/mL suspensio n for injection 2024 025 [email or web address] [facility] #54808, [address] [facility], [place], [place], [id number], 06/23/2024 12:27:02 bupivacai ne HCl 0.5 % (5 mg/mL) injection solution 2024 025 [email or web address] [facility] #27147, [address] [facility] [facility], [place], [place], [id number], 03/30/2024 11:27:35 Kenalog 10 mg/mL suspensio n for injection 2024 025 [email or web address] [facility] #19225, [address] [facility], [place], [place], [id number], 03/30/2024 11:27:35 bupivacai ne HCl 0.5 % (5 mg/mL) injection solution 2023 024 [email or web address] [facility] #44367, [address] [facility], [place], [place], [id number], 12/28/2023 14:55:40 Kenalog 10 mg/mL suspensio n for injection 2023 024 [email or web address] [facility] #44785, [address] [facility], [place], [place], [id number], 12/28/2023 14:55:40 Marcaine (PF) 0.5 % (5 mg/mL) injection solution 2023 024 [email or web address] [facility] #83623, [address] [facility], [place], [place], [id number], 12/28/2023 14:16:52 Kenalog 10 mg/mL suspensio n for injection 2023 024 [email or web address] [facility] #25655, [address] [facility], [place], [place], [id number], 12/28/2023 14:16:45 Patient TargetsNo targets recorded. Patient InstructionsNo instructions recorded. Reason for Referral None Reported. Results Created Date Observation Date Name Description Value Unit Range Abnormal Flag Note LastModifiedBy Organization Detail LastModifiedTime 12/28/19 24 XR, knee No observ ation record ed. [email or web address] [facility] [place] [address], [place], [address], 12/28/2023 14:43:58 Result Notes None recorded. Problems Name Problem SNOMED Code Status Onset Date Resolution Date Notes Provider Name and Address Organization Details Recorded Time Localized, primary osteoarthr itis of the pelvic region and thigh 682636000 Active Not Available [facility] 3 13:30:41 Osteoarthr itis of hip 741751753 Active Not Available [facility] 3 13:30:41 Osteoarthr itis of knee 219271958 Active Not Available [facility] 3 13:30:41 Follow-up orthopedic assessment 438637080 Active Not Available [facility] 3 13:30:41 Osteoarthr itis 940895994 Active Not Available [facility] 3 13:30:41 Pain of hip region 16781709 Active Not Available [facility] 3 13:30:41 Bilateral osteoarthr itis of knees 4823674389883 07 Active 2021 Not Available [facility] 3 13:30:41 Osteoarthr itis of right knee joint 7312885614091 00 Active 2022 MENDOZA La [address], [place], [address] , [employer] 5 10:49:07 Pain of left hip joint 1739917791498 00 Active 2022 Shelia Sheridan CNA null, [email or web address] [facility] 3 09:01:15 Pain of right knee joint 9133756741473 00 Active 2022 MENDOZA La [address], [address], [place], [address] , [facility] [employer] [facility] 3 09:38:15 Problem Notes None recorded. Procedures Surgical History Date Name Laterality Status Provider Name and Address Organization Details Recorded Time Hip surgery completed Sheila Sheridan CNA [place] [employer] [facility] 12/28/2023 14:18:03 Hernia Surgery completed Not Available [facility] 04/29/2022 13:29:48 Bypass completed Shelia Sheridan CNA [facility] [employer] [facility] 12/28/2023 14:18:24 Imaging Results None recorded. Procedure Notes None recorded. Medical Equipment None Reported. Allergies Allergen ID Allergen Name Allergen Category Reaction Reaction Severity Criticality Documentation Date Start Date Code Code System Note Provider Name and Address Organization Details Recorded Time 68792 aspirin medicatio n Not available Not available Not available 04/29/2022 1191 RxNorm ulcer s MYNOR Springer [facility] [employer] [facility] 14:16:24 Medications Name Sig Start Date Stop Date Status Note LastModified by Organization Details LastModified Time cyclobenzap rine 10 mg tablet 11/21 completed Not Available Not Available Not Available amoxicillin 500 mg capsule 11/21 completed Not Available Not Available Not Available terazosin 5 mg capsule 11/21 completed Not Available Not Available Not Available atorvastati n 40 mg tablet TAKE 1 TABLET BY MOUTH DAILY active Not Available Not Available No t Available metformin 500 mg tablet TAKE 1 TABLET BY MOUTH DAILY active Not Available Not Available No t Available tramadol 37.5 mg-acetamin ophen 325 mg tablet 11/21 completed Not Available Not Available Not Available metoprolol tartrate 100 mg tablet 11/21 completed Not Available Not Available Not Available hydrocodone 5 mg-acetamin ophen 325 mg tablet 11/21 completed Not Available Not Available Not Available bupivacaine HCl 0.5 % (5 mg/mL) injection solution Take 4 mL by injection route. 2024 active Not Available Not Available Not Avai lable isosorbide mononitrate ER 30 mg tablet,exte nded release 24 hr active Not Available Not Available Not Available valsartan 80 mg tablet 11/21 completed Not Available Not Available Not Available penicillin V potassium 500 mg tablet 11/21 completed Not Available Not Available Not Available clopidogrel 75 mg tablet TAKE 1 TABLET BY MOUTH EVERY DAY active Not Available Not Available No t Available ciprofloxac in 500 mg tablet 04/11 completed Not Available Not Available Not Available sulfamethox azole 800 mg-trimetho prim 160 mg tablet TAKE 1 TABLET BY MOUTH TWICE DAILY active Not Available Not Available No t Available peg-electro lyte solution 420 gram oral solution 11/21 completed Not Available Not Available Not Available tramadol 50 mg tablet 11/06 completed Not Available Not Available Not Available pantoprazol e 20 mg tablet,salvador yed release 11/21 completed Not Available Not Available Not Available ketorolac 0.5 % eye drops 11/29 completed Not Available Not Available Not Available prednisolon e acetate 1 % eye drops,suspe nsion 11/29 completed Not Available Not Available Not Available tamsulosin 0.4 mg capsule TAKE 1 CAPSULE BY MOUTH DAILY 30 MINUTES AFTER THE SAME MEAL active Not Available Not Available No t Available temazepam 30 mg capsule TAKE 1 CAPSULE BY MOUTH 1 TIME NEEDED FOR SLEEP 11/06 completed Not Available Not Available Not Available Kenalog 10 mg/mL suspension for injection Take 2 mL by injection route. 2024 active [facility]: 0003- 0494- 20 Not Available Not Available Not Available pantoprazol e 40 mg tablet,salvador yed release TAKE 1 TABLET BY MOUTH DAILY active Not Available Not Available No t Available naproxen sodium 550 mg tablet 11/21 completed Not Available Not Available Not Available valsartan 320 mg tablet 11/21 completed Not Available Not Available Not Available metoprolol tartrate 50 mg tablet active Not Available Not Available No t Available mometasone 50 mcg/actuati on nasal spray SHAKE LIQUID AND USE 2 SPRAYS IN EACH NOSTRIL EVERY DAY 12/27 completed Not Available Not Available Not Available gabapentin 300 mg capsule 11/21 completed Not Available Not Available Not Available omeprazole 20 mg capsule,del ayed release 11/21 completed Not Available Not Available Not Available diclofenac sodium 75 mg tablet,salvador yed release 11/21 completed Not Available Not Available Not Available levofloxaci n 500 mg tablet 11/06 completed Not Available Not Available Not Available albuterol sulfate HFA 90 mcg/actuati on aerosol inhaler INL 1 PUFF PO Q 4 H PRF SOB 11/06 completed Not Available Not Available Not Available losartan 100 mg tablet 11/21 completed Not Available Not Available Not Available finasteride 5 mg tablet TAKE 1 TABLET BY MOUTH DAILY active Not Available Not Available No t Available moxifloxaci n 0.5 % eye drops 11/29 completed Not Available Not Available Not Available Marcaine (PF) 0.5 % (5 mg/mL) injection solution Take 20 mg by injection route. 12/27 completed Not Available Not Available Not Available metoprolol tartrate 25 mg tablet 11/21 completed Not Available Not Available Not Available Euflexxa 10 mg/mL (mw 2.4-3.6 million) intra-artic ular syringe Inject 2.5 mL by intra-art icular route for 35 days. 12/24 completed Not Available Not Available Not Available lidocaine (PF) 10 mg/mL (1 %) injection solution In office injection administe red by the provider 11/06 completed [facility]: 0409- 4276- 17 Not Available Not Available Not Available lidocaine (PF) 5 mg/mL (0.5 %) injection solution Take 30 mg by injection route. 11/06 completed Not Available Not Available Not Available Exforge 10 mg-160 mg tablet 11/21 completed Not Available Not Available Not Available amlodipine 5 mg-valsarta n 160 mg tablet TAKE 1 TABLET BY MOUTH DAILY active Not Available Not Available No t Available amlodipine 10 mg-valsarta n 320 mg tablet 11/21 completed Not Available Not Available Not Available Effient 10 mg tablet 11/21 completed Not Available Not Available Not Available Prevnar 13 (PF) 0.5 mL intramuscul ar syringe PHARMACIS T ADMINISTE RED IMMUNIZAT ION ADMINISTE RED AT TIME OF DISPENSIN G 04/11 completed Not Available Not Available Not Available Xarelto 10 mg tablet 11/21 completed Not Available Not Available Not Available ropivacaine (PF) 5 mg/mL (0.5 %) injection solution in office 12/27 completed [facility] 00436 -064- 01 Not Available Not Available Not Available Fluvirin 0274-3925 45 mcg (15 mcg x 3)/0.5 mL intramuscul ar suspension INJECT 0.5 ML INTRAMUSC ULARLY DIRECTED. 11/21 completed Not Available Not Available Not Available Fluzone High-Dose 2014- (PF) 180 mcg/0.5 mL intramuscul ar syringe 11/21 completed Not Available Not Available Not Available Fluzone High-Dose 0391-6022 (PF) 180 mcg/0.5 mL intramuscul ar syringe ADM 0.5ML IM UTD 11/21 completed Not Available Not Available Not Available Fluzone High-Dose 8542-4860 (PF) 180 mcg/0.5 mL intramuscul ar syringe ADMINISTE R 0.5ML IN THE MUSCLE DIRECTED 11/21 completed Not Available Not Available Not Available Fluad 2017- 65yr up(PF)45 mcg(15 mcgx3)/0.5 mL intramuscul ar syringe active Not Available Not Available N ot Available Fluzone High-Dose (PF) 180 mcg/0.5 mL intramuscul ar syringe PHARMACIS T ADMINISTE RED IMMUNIZAT ION ADMINISTE RED AT TIME OF DISPENSIN G 04/11 completed Not Available Not Available Not Available Fluzone High-Dose Quad (PF) 240 mcg/0.7 mL IM syringe PHARMACIS T ADMINISTE RED IMMUNIZAT ION ADMINISTE RED AT TIME OF DISPENSIN G 12/27 completed Not Available Not Available Not Available Vitals Date Recorded Body height Body mass index (BMI) Body weight Provider Name and Address Organization Details Last Updated DateTime 03/30/2024 182.88 cm 27.1 kg/m2 10745.47 g Shelia Sheridan CNA [employer] 03/30/2024 10:54:44 Date Recorded Body height Body mass index (BMI) Body weight Provider Name and Address Organization Details Last Updated DateTime 06/23/2024 182.88 cm 28.5 kg/m2 57129.4 g Shelia Sheridan CNA [employer] 06/23/2024 11:37:59 Date Recorded Body height Body mass index (BMI) Body weight Pain severity - 0-10 verbal numeric rating [Score] - Reported Provider Name and Address Organization Details Last Updated DateTime 09/22/2024 182.88 cm 27.8 kg/m2 30156.44 g 5 Ambika Duff [facility] [employer] 09/22/2024 10:32:32 Date Recorded Body height Body mass index (BMI) Body weight Provider Name and Address Organization Details Last Updated DateTime 09/27/2023 182.88 cm 27.1 kg/m2 90586.47 g Shelia Sheridan [employer] 09/27/2023 09:00:15 Date Recorded Body height Body mass index (BMI) Body weight Provider Name and Address Organization Details Last Updated DateTime 12/28/2023 182.88 cm 27.1 kg/m2 83484.47 g Shelia Sheridan [facility] [employer] 12/28/2023 14:15:57 Social History Question Answer Notes LastModified by [employer] Details LastModified Time Tobacco Smoking Status Never Smoker Not Available [facility] 04/29/2022 13:29:45 What Was The Date Of Your Most Recent Tobacco Screening? 09/22/2024 [email or web address] Information not available 09/22/2024 How Much Tobacco Do You Smoke? No [id number] Information not available 04/29/2022 Sex: Unknown Functional Status Question Answer Note LastModified by [employer] Details LastModified Time What is your level of alcohol consumption? None [id number] Information not available 04/29/2022 Mental Status None recorded. Family History Relationship Description Onset Age of this Age Resolved Age Notes LastModified by Organization Details LastModified Time Father Heart disease [id number] Not available 04/29/2022 13:29:49 Father Hypertensive disorder [id number] Not available 04/29/2022 13:29:49 Mother Heart disease [id number] Not available 04/29/2022 13:29:49 Unspecified Relation Diabetes mellitus [id number] Not available 04/29/2022 13:29:49 Medical History Condition Response ULCERS Y URINARY/BLADDER/KIDNEY PROBLEMS Y CORONARY ARTERY DISEASE (CAD) Y ARTHRITIS Y USE OF BLOOD THINNERS Y DIABETES, TYPE Y VASCULAR DISEASE Y HEART DISEASE/HEART PROBLEMS Y HYPERTENSION Y Past Encounters Encounter ID Performer Location Encounter Start Date Encounter Closed Date Diagnosis/Indication Diagnosis SNOMED-CT Code Diagnosis ICD10 Code Diagnosis IMO Codes Diagnosis Note [id number] MENDOZA La [facility] [place] [address] [place] [address] 08/22/2020 00:00:00 08/22/2020 09:27:51 [id number] Berlin Alexander MD [facility] [place] [address] [place] [address] 12/19/2020 00:00:00 12/19/2020 09:18:11 [id number] Berlin Alexander MD [facility] [place] [address] [place] [address] 12/26/2020 00:00:00 12/26/2020 09:58:58 [id number] Berlin Alexander MD [facility] [place] [address] [place] [address] 01/02/2021 00:00:00 01/02/2021 10:11:11 [id number] Berlin Alexander MD [facility] [place] [address] [place] [address] 02/03/2021 00:00:00 02/03/2021 09:48:16 [id number] Berlin Alexander MD [facility] [place] [address] [place] [address] 05/05/2021 00:00:00 05/05/2021 09:39:05 [id number] Berlin Alexander MD [facility] [place] [address] [place] [address] 08/05/2021 00:00:00 08/05/2021 14:18:12 [id number] Berlin Alexander MD [facility] [place] [address] [place] [address] 11/06/2021 00:00:00 11/06/2021 09:32:09 [id number] Berlin Alexander MD [facility] [place] [address] [place] [address] 12/18/2021 00:00:00 12/18/2021 09:16:06 [id number] Berlin Alexander MD [facility] [place] [address] [place] [address] 12/25/2021 00:00:00 12/25/2021 09:12:09 [id number] Berlin Alexander MD [facility] [place] [address] [place] [address] 01/01/2022 00:00:00 01/01/2022 09:08:47 [id number] Berlin Aleaxnder MD [facility] [place] [address] [place] [address] 03/19/2022 00:00:00 03/19/2022 09:43:54 [id number] Berlin Alexander MD [facility] [place] [address] [place] [address] 06/01/2022 08:44:07 06/01/2022 10:39:44 Osteoarthritis of right knee joint 6898389611 26777 M17.11 Pain of le ft hip joint 6709349837 44120 M25.552 [id number] Berlin Alexander MD [facility] [place] [address] [place] [address] 06/18/2022 08:57:35 06/18/2022 09:56:46 Osteoarthritis of right knee joint 7911093693 88866 M17.11 Pain of le ft hip joint 4410441706 45393 M25.552 [id number] Berlin Alexander MD [facility] [place] [address] [place] [address] 09/17/2022 08:56:31 09/17/2022 09:43:27 Osteoarthritis of right knee joint 6145111237 68924 M17.11 Pain of le ft hip joint 8348617464 49514 M25.989 [id number] Anders Lamas MD [facility] [place] [address] [place] [address] 12/24/2022 08:56:06 12/24/2022 09:41:10 Osteoarthritis of knee 297857973 M17.11 Bilateral osteoarthritis of knees 2823889797 59915 M17.0 Pain of ri ght knee joint 6226967069 84067 M25.658 [id number] Anders Lamas MD [facility] [place] [address] [place] [address] 03/25/2023 08:57:38 03/25/2023 15:46:34 Bilateral osteoarthritis of knees 6233594322 49711 M17.0 Osteoarthr itis of knee 989841018 M17.11 Pain of ri ght knee joint 4292276416 48973 M25.654 [id number] Kulwant Burks MD [facility] [place] [address] [place] [address] 06/24/2023 09:01:30 06/24/2023 09:35:26 Bilateral osteoarthritis of knees 3848813364 87887 M17.0 Osteoarthr itis of knee 385364571 M17.11 Pain of ri ght knee joint 1432502281 67767 M25.115 [id number] Kulwant Burks MD [facility] [place] [address] [place] [address] 09/27/2023 08:49:35 09/27/2023 09:35:02 Pain of right knee joint 5141078151 22018 M25.561 Osteoarthr itis of right knee joint 6363097000 85954 M17.11 [id number] Kulwant Burks MD [facility] [place] [address] [place] [address] 12/28/2023 13:56:05 12/28/2023 14:41:17 Osteoarthritis of right knee joint 9826174730 16684 M17.11 Pain of ri ght knee joint 8457923064 16484 M25.484 [id number] Kulwant Burks MD [facility] [place] [address] [place] [address] 03/30/2024 10:52:45 03/30/2024 11:02:11 Osteoarthritis of right knee joint 0391036623 92488 M17.11 Pain of ri ght knee joint 2641127854 45142 M25.103 [id number] Kulwant Burks MD [facility] [place] [address] [place] [address] 06/23/2024 11:35:14 06/23/2024 11:48:52 Osteoarthritis of right knee joint 0770726808 98389 M17.11 Pain of ri ght knee joint 6278294764 77377 M25.255 [id number] Kulwant Burks MD [facility] [place] [address] [place] [address] 09/22/2024 10:24:32 09/22/2024 10:55:06 Pain of right knee joint 7184181935 80469 M25.561 Osteoarthr itis of right knee joint 5318014041 63352 M17.11 [id number] Health Concerns Section Related Observation LastModified by Organization Detai ls LastModified Time None Recorded Concern Status LastModified by Organization Details LastModified Time None Recorded Advance Directives Directive None Recorded Payers Insurance Date Sequence Insurance Name Policy Number Policy Shay Covered Member ID Shay Member ID Guarantor Name 09/20/2024 1 [place] Jesse Churchill [id number] Jesse Churchill 09/28/2024 2 [employer] [facility] [id number] Jesse Churchill [id number] Jesse Churchill 12/28/2023 2 [facility] (MEDICARE REPLACEMENT/A DVANTAGE - PPO) [id number] Jesse Churchill [id number] Jesse Churchill Notes Date Note Type Note Provider Name and Address Organization Details Recorded Time 09/27/2023 text/html Patient returns requesting an injection into his right knee has severe primary osteoarthritis [id number] changes in medial compartment and mild varus deformity. Cortisone injections gave him good relief he is not interested in surgery. Today he denies any new problems no new trauma or injury to the knee. He has aching pain that is somewhat limits his activities currently but the shots gave him excellent relief [facility] [address] [facility], [place], [address], [place] [employer] 09/27/2023 09:08:17 12/28/2023 text/html Patient returns with right knee pain he has known advanced primary osteoarthritis in the right knee joint at 83 years of age he states he is not really interested in total knee arthroplasty gets by with conservative measures 3 months ago he had a shot of cortisone it gave him good relief. He would like another 1 today denies any new problems with either knee no new trauma or injury no effusion or swelling no erythema heat or other signs of infection. He does have chronic medial-sided pain with varus deformity pain is worse with activity somewhat relieved by rest he states today the pain is about a 3 on a scale of 110 doing a little better today than usual but typically hurts him more particularly if he is more active. New past medical history sheet was reviewed and signed noted on intake sheet of today's date drug allergies current medications family social history previous surgical history 10 point review of systems was reviewed and discussed in detail today with the patient. We are going to get new updated x-rays today as it has been more than a year since his last x-rays. [facility] [address], [place], [address], [employer] 12/28/2023 14:44:19 03/30/2024 text/html Patient returns for an injection into the right knee he had a cortisone shot 3 months ago he gets them every 3 months and they worked well for him. Lately his knee it has been aching about a 5 on a scale of 1-10 on the pain scale. Denies any new problems with the knee no effusion or swelling no erythema heat or other signs of infection he has advanced primary osteoarthritis and qreh-ck-vwuc in the medial compartment with varus deformity. It limits what he can do some days he would like another shot of cortisone. [facility] [address], [place], [address], [employer] 03/30/2024 11:03:25 06/23/2024 text/html patient returns for a right knee injection it has been 3 months since his last cortisone injection. This gives him great relief. He is 84 years of age he is not interested in total knee arthroplasty he would rather get by with conservative measures because this worked so well for him. He has severe primary osteoarthritis with [id number] changes in medial compartment and varus deformity. A shot of cortisone gives him basically 3 months relief at a time recently his knee pain has worn off he would like another shot today denies any new problems with the right knee. [facility] [address], [place], [address], [employer] 06/23/2024 11:54:28 09/22/2024 text/html the patient returns with right knee pain he has severe primary osteoarthritis in that knee he comes in every 3 months for cortisone injections he would like to repeat that today. Denies any new problems. He gets excellent relief from cortisone every 3 months helps him gave him around he would rather do that than have total knee arthroplasty. He has severe ugtq-dj-zbav changes in the medial compartment with varus deformity. He would like another shot today. [address] [address], [place], [address], [employer] 09/22/2024 10:49:37
--- OUTSIDE RECORDS SUMMARY | 2024-11-28 01:47 | XMS_ITS | Encounter Summary ---
Author Organization [facility] Healthcare Address [address] [place] [address] Care Team Providers Care Chair Trimmer Name Role Phone Gunnar Bahena MD Primary Care Provide r Encounter Details Date Type Department Care Team (Late st Contact Info) Description 04/06/2024 [place] Only [facility] [address] [place] [address] Scanning, Provider Social History Tobacco Use Types Packs/Day Years Used Date Smoking Tobacco: Never Smokeless Tobacco: Never Alcohol Use Standard Drinks/Week Comments No 0 (1 standard drink = 0.6 oz pur e alcohol) Sex and Gender Information Value Date Recorded Sex Assigned at Not on file 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
--- OUTSIDE RECORDS SUMMARY | 2024-11-28 01:47 | XMS_ITS | Clinical Summary ---
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 07/05/2017 Hyperlipidemia LDL goal <70 12/29/2016 History of bleeding ulcers 08/11/2016 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 Essential hypertension 05/15/2014 Overview (06/05/2016): Essential hypertension Adiposity 05/15/2014 Overview (06/05/2016): Obesity Resolved Problems Problem Noted Date Diagnosed Date Resolved Date Dyslipidemia 08/11/2016 03/21/2020 Encounters Date Type Department Care Team Description 11/15/2024 8:15 AM CDT Office Visit [facility] Cardiology [address] [place] [address] Walker Irene MD Coronary artery disease of [place] artery of [place] heart with stable angina pectoris (Primary Dx); Preop examination; Essential hypertension; Hyperlipidemia LDL goal <70; Pulmonary hypertension (HCC) from Last 3 Months Surgical History Surgery [...] on file 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 Gender Identity Not on file Sexual Orientation Not on file Obstetrics History Last Filed Vital Signs Vital Sign Reading Time Taken Comments Blood Pressure 114/60 11/15/2024 8:09 AM CDT Pulse 91 11/15/2024 8:09 AM CDT Temperature - - Respiratory Rate 16 08/11/2016 9:02 AM CDT Oxygen Saturation 95% 11/15/2024 8:09 AM CDT Inhaled Oxygen Concentration - - Weight 92.1 kg (203 lb) 11/15/2024 8:09 AM CDT Height 182.9 cm (6') 11/15/2024 8:09 AM CDT Body Mass Index 27.53 11/15/2024 8:09 AM CDT Plan of Treatment Health Maintenance Due Date Last Done Comments Depression Screening 1941 Fall Risk Assessment 1941 DTaP/Tdap/Td Vaccine (1 - Tdap) 1952 Hepatitis B Screening 1959 Zoster Vaccine (1 of 2) 1991 Well Visit 65+ 2006 Pneumococcal vaccine 65+ (2 of 2 - PPSV23, PCV20, or PCV21) 02/27/2019 01/02/2019 Influenza Vaccine (#1) 2024 4, 11/14/2019, 01/02/2019, Additional history exists Procedures Procedure Name Priority Date/Time Associated Diagnosis Comments ECG 12-LEAD Routine 11/15/2024 8:11 AM CDT Coronary artery disease of [place] artery of [place] heart with stable angina pectoris Preop examination from Last 3 Months Results * ECG 12 lead (11/15/2024 8:11 AM CDT) us Walker Irene MD ECG ORDERABLES Edited Re sult - Final from Last 3 Months Insurance MEDICARE [facility] MEDICARE [facility] Care Teams Vp Compliance Relationship Specialty Start Date End Date Gunnar Bahena MD [address] [place] [address] PCP - General 05/29/16
--- OUTSIDE RECORDS SUMMARY | 2024-11-28 01:47 | XMS_ITS | Encounter Summary ---
Author Organization [facility] Healthcare Address [address] [place] [address] Care Team Providers Care Travel Coordinator Name Role Phone Gunnar Bahena MD Primary Care Provide r Encounter Details Date Type Department Care Team (Late st Contact Info) Description 12/02/2023 [place] Only [facility] [place] [address] [place] [id number] Scanning, Provider Social History Tobacco Use Types Packs/Day Years Used Date Smoking Tobacco: Never Smokeless Tobacco: Never Alcohol Use Standard Drinks/Week Comments No 0 (1 standard drink = 0.6 oz pur e alcohol) Sex and Gender Information Value Date Recorded Sex Assigned at Not on file 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
[2024-11-28] MEDS: ACETAMINOPHEN 500 MG TABLET 1000 MG PO (10:40)
[2024-11-28] MEDS: LACTATED RINGERS 1,000 ML 30 ML IV CONT ×2 (10:40→14:17)
--- NOTE | 2024-11-28 12:01 | WPDHPUPDATE1 ---
History and Physical Update Update Date/Time: 11/28/24 12:01 History and Physical has been reviewed, including an updated exam of the patient. There are NO changes in the patient's condition. Risks, benefits, and alternatives have been discussed and questions answered. Patient agrees to proceed with procedure.
--- NOTE | 2024-11-28 12:02 | WPDANESEPPF ---
Anes - Initial Pre Proc Eval Procedure: Operation Date: 11/28/24 12:00 Proposed Procedures p Open Right Inguinal Hernia Repair with [facility] Mesh - Marc Houston MD Date/Time: 11/28/24 12:02 Surgeon: Marc Houston MD Pre Op Diagnosis: reduceable right inguinal hernia Patient Data Age: 84 Gender: M Height: 1.83 m Weight: 92.2 kg Last Vital Signs Temp 97.9 F 11/28/24 10:40 Pulse 61 11/28/24 10:40 Resp 16 11/28/24 10:40 BP 144/76 H 11/28/24 10:40 Pulse Ox 97 11/28/24 10:40 O2 Del Method Room Air 11/28/24 10:40 Allergies Allergy/AdvReac Type Severity Reaction Status Date / Time aspirin AdvReac Intermediate Abdominal Verified 11/28/24 10:57 Pain Home Medications ?Medication ?Instructions ?Recorded ?Confirmed ?Type clopidogrel 75 mg tablet 75 mg PO DAILY 02/01/19 11/16/24 History Held on 10/08/24. Instructions: Resume on 10/29/24. Do not resume until instructed to do so by your primary doctor. isosorbide dinitrate 30 mg tablet 30 mg PO HS 02/01/19 11/16/24 History cetirizine 10 mg tablet (Zyrtec) 10 mg PO HS 08/02/19 11/16/24 History finasteride 5 mg tablet 5 mg PO HS 11/03/19 11/16/24 History atorvastatin 40 mg tablet 40 mg PO QPM 10/06/24 11/16/24 History tamsulosin 0.4 mg capsule 0.4 mg PO QPM 10/06/24 11/16/24 History metformin 500 mg tablet See Rx Instructions .Route 11/13/24 11/16/24 Rx .COMPLEX #90 tabs pantoprazole 40 mg tablet,delayed 40 mg PO HS 3 months #90 tabs 11/15/24 11/16/24 Rx release acetaminophen 650 mg 1,300 mg PO Q8H PRN pain 11/16/24 11/16/24 History tablet,extended release (8 Hour Pain Reliever) amlodipine 5 mg-valsartan 160 mg 1 tablet PO QAM 11/16/24 11/16/24 History tablet metoprolol tartrate 50 mg tablet 50 mg PO BID 11/16/24 11/28/24 History ciprofloxacin HCl 250 mg tablet 250 mg PO BID #14 tabs 11/22/24 11/28/24 Rx (Cipro) Laboratory Tests 11/28/24 10:33 POC Capillary Glucose 104 mg/dl (65-105) Patient hx anesthesia problems: none Family hx anesthesia problems: none Results Review: All pre-operative results and documents have been reviewed as part of the pre-operative evaluation. [facility] Past Medical History Medical History SOB (shortness of breath) Gastric ulcer due to nonsteroidal antiinflammatory drug (NSAID) therapy Atherosclerosis of coronary artery bypass graft(s) without angina pectoris Chronic pain of both shoulders Vitamin D deficiency PUD (peptic ulcer disease) Primary osteoarthritis of both hips Polyosteoarthritis, unspecified Pain in right shoulder Other chronic pain Need for pneumococcal vaccine Atypical mole Visit for suture removal URI with cough and congestion GERD (gastroesophageal reflux disease) CAD (coronary artery disease) Family History Family History Father Hypertension, Onset Age: 76 Family history of cardiovascular disease, Onset Age: 76 Mother Family history of cardiovascular disease, Onset Age: 68 Social History Social History Smoking status: Never smoker Second hand tobacco smoke exposure: Yes Alcohol intake: former Substance use: never Substance use type: does not use Lack of Transportation: No Lack of Food: Never True Current Housing: I Do Not Have Housing Concerned About Future Housing: No Difficulty Paying Gas/Electric Bills: No Difficulty Paying for Meds: No Currently Unemployed: No Education: High School Diploma/GED Difficulty w/ Childcare or Family Care: No Living arrangements: alone Occupation/Education: retired 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 Informed Consent: The patient's anesthetic plan and its attendant risks and benefits were discussed with the patient/family/POA. Questions were solicited and answers provided to the satisfaction of the patient/family/POA.
[2024-11-28] MEDS: ceFAZolin 2 GM in SODIUM CHLORIDE 0.9% IV 50 ML 100 ML IVPB (12:16)
[2024-11-28] MEDS: LIDO 1%/EPINEPHRINE 1:100,000 20 ML VIAL 30 ML INFILTRATE (12:52)
[2024-11-28] MEDS: fentaNYL CITRATE INJ (*CRX) 100 MCG/2 ML VIAL 25 MCG IV PUSH ×2 (15:13→15:16)
--- NOTE | 2024-11-28 15:50 | ADMGEN ---
This patient, Jesse Churchill, was admitted to Medical Room 250-01. Patient/family oriented to hospital policies and general routines including ID bracelet, bed and alarms, visiting hours, pain management, procedures, bathroom and other care routines, personal items, smoking policy, room service/diet, and visiting hours. Information on how to activate the Rapid Response Team has been discussed. Patient/Family are encouraged to report perceived risks to care and to ask questions if they do not understand what they are told or what they should do.
[2024-11-28] MEDS: TAMSULOSIN HCL 0.4 MG CAPSULE PO (17:41)
[2024-11-28] MEDS: ATORVASTATIN 40 MG TABLET PO (17:41)
[2024-11-28] MEDS: CIPROFLOXACIN 250 MG TABLET PO (17:41)
[2024-11-28] MEDS: HYDROcodone/acetaminophen (*CRX) 5-325 MG TABLET 1 TAB PO ×2 (17:43→22:18)
[2024-11-28] MEDS: PANTOPRAZOLE 40 MG TABLET PO (20:43)
[2024-11-28] MEDS: ISOSORBIDE MONONITRATE 30 MG TAB.ER.24H PO (20:44)
[2024-11-28] MEDS: LORATADINE 10 MG TABLET PO (20:44)
[2024-11-28] MEDS: FINASTERIDE 5 MG TABLET PO (20:44)
[2024-11-28] MEDS: METOPROLOL TARTRATE 50 MG TAB PO (20:44)
--- NOTE | 2024-11-28 21:23 | P.OP_ITS ---
Procedure Note - Detailed Date of Procedure 11/28/24 Pre-op Diagnosis Reduceable right inguinal hernia Post-op Diagnosis Same Procedure Performed Open right inguinal hernia repair with UHS mesh. Surgeon Marc Houston MD [employer] [facility] Anesthesia General Indications Patient is an 84-year-old gentleman who lifted a heavy object and felt a sharp right groin pain. He then developed a right groin bulge and on examination had a large reducible right inguinal hernia. He presents now for open repair the right inguinal hernia with mesh. Findings The patient had a large indirect right inguinal hernia. There was a small her artem sac but a large cord lipoma. The hernia was repaired with a piece of Ultrapro hernia system mesh. Description of Procedure After informed consent was obtained patient was brought to the operating room was placed under general LMA anesthesia. The lower abdomen and groin regions were then prepped and draped usual sterile fashion. A time-out was then performed correctly identifying the patient as well as procedure to be performed. Site marking was verified and he was given perioperative IV antibiotics. I then proceeded to make a transverse incision in a skin crease in the right groin region about 2 fingerbreadths above the palpated right pubic tubercle. Dissection was then carried down through the subcutaneous tissues and down through Therese's fascia with electrocautery. The external oblique aponeurosis was identified and the subcutaneous tissues dissected off of the fascia with electrocautery. The external ring was then identified. I then incised the external oblique aponeurosis along the direction of its fibers with a scalpel. I then opened the external oblique aponeurosis out through the external ring and proximally with electrocautery. I then proceeded to separate the internal oblique muscle fibers and the cremasteric muscle fibers and the undersurface the external oblique aponeurosis utilizing blunt finger, scissor, and electrocautery dissection. I then proceeded to isolate the cord structures at the pubic tubercle blunt finger dissection and then placed a [place] drain around the cord for mobilization. I then further divided cremasteric muscle fibers to further mobilize the cord. I then examined the floor of the inguinal canal and it was intact without evidence of a direct defect. The internal ring was very dilated with what appeared to be a very large cord lipoma coming through the dilated internal ring along with a small indirect inguinal hernia sac. I then explored the cord and divided the cremasteric muscle fibers to identify the vas deferens and testicular vessels. These were then dissected free of the large cord lipoma up to the level of internal ring with electrocautery. The small indirect inguinal hernia sac was then dissected free of the cord structures as well up to the level of the internal ring. I then reduced the hernia sac back into the preperitoneal space. The large cord lipoma was also then reduced into the preperitoneal space as well. I then developed the preperitoneal space by placing a large sponge into the preperitoneal space through the dilated internal ring and then with the inferior epigastric vessels retracted anteriorly I developed a space with blunt finger and sponge dissection. Once this was done I then used a extended oval piece of Ultrapro hernia system mesh for the repair. The oval underlay portion of the mesh was placed through the internal ring into the dissected preperitoneal space. It was then spread out to cover the home myopectineal orifice. It was placed deep to the inferior epigastric vessels. The cylindrical connecting portion of the mesh was then allowed to come through the dilated internal ring and then the overlay patch was then placed over the floor of the inguinal canal. I did have to decrease the aperture of the internal ring by placement of 2 0 Ethibond sutures. The overlay patch was then secured to the tissues around the pubic tubercle with interrupted 2-0 Vicryl sutures. A slit was then cut in the overlay patch to accommodate the cord structures and the patch was reapproximated around the cord by placement of interrupted 2-0 Vicryl sutures. The tail of the patch was then tucked underneath the external oblique aponeurosis proximally. Medially the overlay patch was then secured to internal oblique muscle fiber and lateral border of the rectus utilizing interrupted 2-0 Vicryl sutures. Laterally the overlay mesh was secured to the shelving edge of the external oblique aponeurosis. The mesh laid out very nicely without any tension. I then irrigated out the inguinal canal sterile saline solution. Hemostasis was good. I then closed the external oblique aponeurosis utilizing a running 3-0 Vicryl suture. The external ring was recreated and left widely patent. I then injected 1% lidocaine mixed with 0.5% Marcaine with some epinephrine underneath the external oblique aponeurosis and then in the subcutaneous tissues around the incision. The incision was then closed utilizing interrupted 4-0 Monocryl sutures in the Therese's fascia and subcutaneous tissue layers. The skin edges w ere then approximated utilizing a running subcuticular 4-0 Monocryl suture. Incision was then cleaned and then skin glue was applied. The patient tolerated the procedure well no complications. All sponges, needles, and instrument counts were correct at the end procedure. EBL was _20__cc. The patient was awakened and taken to recovery in stable and satisfactory condition. Implants Extended oval Prolene hernia system mesh system right groin. Estimated Blood Loss 20 Drains No Packing No Pathology None sent Complications No immediate complications Condition Stable Disposition PACU [facility] Billing Surgery - Charge Forward: Surgery Billing
[2024-11-29 00:39] VITALS: BP 125/61; PULSE 68; RESP 16; TEMP 36.7; O2SAT 94
[2024-11-29 04:00] VITALS: BP 130/68; PULSE 64; RESP 16; TEMP 36.4; O2SAT 98
[2024-11-29] MEDS: CIPROFLOXACIN 250 MG TABLET PO (05:33)
[2024-11-29 08:00] VITALS: BP 130/59; PULSE 63; RESP 18; TEMP 37.3; O2SAT 94
[2024-11-29 09:36] VITALS: PULSE 65
[2024-11-29] MEDS: METOPROLOL TARTRATE 50 MG TAB PO (09:36)
[2024-11-29] MEDS: VALSARTAN 160 MG TABLET PO (09:37)
[2024-11-29] MEDS: ACETAMINOPHEN 500 MG TABLET 1000 MG PO (09:37)
[2024-11-29 12:09] VITALS: BP 134/70; PULSE 60; RESP 18; TEMP 37.3; O2SAT 93
--- NOTE | 2024-11-29 16:54 | P.DS_ITS ---
DS: Admitting Diagnosis Discharge Date 11/29/24 Admitting Diagnosis Reducible right inguinal hernia DS: Discharge Diagnosis Discharge Diagnosis (1) Inguinal hernia of right side without obstruction or gangrene: Code(s): K40.90 - Unilateral inguinal hernia, without obstruction or gangrene, not specified as recurrent Status: Acute DS: Summary Hospital Course Reason for hospitalization: Patient is an 84-year-old man who lifted a heavy object and felt a sharp right groin pain. He then developed a right groin bulge a few days later and on examination had a large reducible right inguinal hernia. He presented to the hospital on at 11/28/2024 for a scheduled open repair of his right inguinal hernia with mesh Hospital Course: Patient presented to the hospital on for a scheduled open right inguinal hernia repair with [facility] mesh. In the OR there was found to be a small hernia sac, but a large cord lipoma. Patient tolerated the procedure well with no complications. He was awakened and taken to recovery in stable and satisfactory condition. Patient was kept overnight on the medical-surgical floor for monitoring. No acute events overnight. Vital signs remained stable. Patient was able to tolerate diabetic diet without nausea or vomiting. Pain was tolerable with oral Tylenol and [place]. Patient was able to ambulate independently and void appropriately. Surgically stable for discharge. Status at Discharge Functional status at discharge: independent ambulation Time Spent with Patient Time attestation: Total time spent providing and/or coordinating discharge services: Time spent: Less than 30 minutes Exam Const: General: comfortable and no acute distress Eyes: General: appearance normal, both eyes and all related structures Neck: Neck: supple and no JVD Resp: Effort & Inspection: normal respiratory effort Cardio: Rate: regular rate GI: Inspection: non-distended GI Palp: Yes Soft to palpation and No Tenderness to palpation present (GI) Other: Transverse incision to right groin region clean and dry with glue intact. No signs of infection. No surrounding redness. : Male General Exam: Yes normal external exam Skin: General skin exam: normal color and no rashes or lesions noted Extrem: General: normal to inspection Psych: Mental Status: mental status grossly normal DS: Data Data Completed and Pending Labs on day of discharge: Labs from last 24 hours 11/29/24 11/29/24 11/28/24 11:47 07:46 20:24 POC Capillary Glucose 113 H 105 115 H 11/28/24 16:12 POC Capillary Glucose 111 H Discharge Plan Discharge Patient Disposition: Home Discharge Instructions: May discharge patient home when stable. Patient to follow-up with Dr. Houston in the office in 2 weeks. Call [phone] for an appointment. May shower in 24hours but no soaking incision under water for 2 weeks. No lifting more than 5 to 10 lb for 4 to 6 weeks. No driving for 1 week or until no longer taking any narcotic pain medications. Wear scrotal support during the day and at night for 2 weeks. Resume all home medications and a prescription for narcotic pain medication will be sent to the patient's pharmacy if needed. May use Tylenol and/or ibuprofen in addition to or in place of narcotic pain medications. Patient Instructions: Clopidogrel (By mouth), Pain Management in Older Adults (GEN) Patient Language: Malaysian Stand Alone Forms: General Discharge Instructions Follow-up/Referrals: Marc Houston MD [Physician, General Surgery] - 2 Weeks Referral Note: Call to schedule. Discharge Orders: Discharge Order (Routine); Ordered 11/29/24 Ordered By: Idania Stephenson Discharge Medications: New hydrocodone-acetaminophen 5-325 mg tablet 1 tablet PO Q4H PRN (Reason: pain) Qty: 12 0RF Continued clopidogrel 75 mg tablet 75 mg PO DAILY Patient Comments: PLAVIX ON HOLD SINCE ~ 10/06/24 AFTER INTERNAL BLEEDING R/T RENAL MASS/HERNIA INJURY. 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 TO HOLD UNTIL AFTER HERNIA SURGERY 11/28/24 isosorbide dinitrate 30 mg tablet 30 mg PO HS finasteride 5 mg tablet 5 mg PO HS cetirizine [Zyrtec] 10 mg tablet 10 mg PO HS Rx Instructions: Take 1 tablet orally daily; acetaminophen [8 Hour Pain Reliever] 650 mg tablet extended release 1,300 mg PO Q8H PRN (Reason: pain) metoprolol tartrate 50 mg tablet 50 mg PO BID amlodipine-valsartan 5-160 mg tablet 1 tablet PO QAM isosorbide mononitrate 30 mg tablet extended release 24 hr 30 mg PO HS atorvastatin 40 mg tablet 40 mg PO QPM Rx Instructions: TAKE 1 TABLET BY MOUTH DAILY tamsulosin 0.4 mg capsule 0.4 mg PO QPM Rx Instructions: TAKE 1 CAPSULE BY MOUTH DAILY 30 MINUTES AFTER THE SAME MEAL metformin 500 mg tablet See Rx Instructions .ROUTE .COMPLEX Qty: 90 2RF Dose Instruction: TAKE 1 TABLET BY MOUTH DAILY Patient Comments: qam Rx Instructions: TAKE 1 TABLET BY MOUTH DAILY pantoprazole 40 mg tablet,delayed release (DR/EC) 40 mg PO HS 90 Days Qty: 90 3RF Rx Instructions: TAKE 1 TABLET BY MOUTH DAILY ciprofloxacin HCl [Cipro] 250 mg tablet 250 mg PO BID Qty: 14 0RF
== END 2024-11-29 15:12 | disposition home or self-care (01) ==
LOC: ANHSURGERY 14:11 → ANH2MED 15:47
PROVIDERS: PCP Emergency Medicine; Visit Provider Surgery
PROC: (CPT 49505; principal; 2024-11-28 12:00)
DX: K40.90 Unilateral inguinal hernia, without obstruction or gangrene, not specified as recurrent (principal); E55.9 Vitamin D deficiency, unspecified; K21.9 Gastro-esophageal reflux disease without esophagitis; M16.0 Bilateral primary osteoarthritis of hip; I25.10 Atherosclerotic heart disease of native coronary artery without angina pectoris; G89.29 Other chronic pain; M25.512 Pain in left shoulder; M25.511 Pain in right shoulder; Z79.02 Long term (current) use of antithrombotics/antiplatelets; Z79.84 Long term (current) use of oral hypoglycemic drugs; Z79.891 Long term (current) use of opiate analgesic; Z95.1 Presence of aortocoronary bypass graft; Z87.11 Personal history of peptic ulcer disease; Z82.49 Family history of ischemic heart disease and other diseases of the circulatory system
CPT/HCPCS: 49505; 82948; J0690; A9270; C1781; J0461; J1596; J2003; J2004; J2371; J2405; J2704; J3010; J7120

== ENCOUNTER 2024-12-14 09:20 | Outpatient (CLI) | payer MEDICARE, OTHER, SELFPAY ==
--- NOTE | ~2024-12-14 | MR_ITS ---
EXAMINATION: MR abdomen wo/w con DATE: 12/14/2024 10:40 INDICATION: Right kidney mass. TECHNIQUE: Magnetic resonance imaging (MRI) of the abdomen was performed without and with 20 mL MultiHance intravenous contrast. COMPARISON: CT abdomen and pelvis 11/01/2024, 10/06/24 FINDINGS: There are cysts in the liver measuring up to 1.8 cm. There are gallstones in the gallbladder, which is normal in size. The spleen, pancreas, and adrenal glands are normal. There are cysts in the kidneys measuring up to 3.5 cm on the right. There is an 8.2 x 8.1 x 9.4 cm hematoma of the right kidney extending into the perinephric fat that measured 9.4 x 8.4 x 12.4 cm on 11/01/24. There are no pathologically enlarged lymph nodes. There is no ascites. There are no dilated loops of bowel. IMPRESSION: 1. 9.4 cm hematoma of the right kidney with interval improvement. No underlying neoplasm identified. Reviewed, dictated and finalized at location E.
--- OUTSIDE RECORDS SUMMARY | 2024-12-14 10:14 | XMS_ITS | Encounter Summary ---
Author Organization [facility] Healthcare Address [address] [place] [address] Care Team Providers Care Medical Scientist Name Role Phone Gunnar Bahena MD Primary Care Provide r Encounter Details Date Type Department Care Team (Late st Contact Info) Description 04/06/2024 Orders Only [facility] Health Information Management [address] [place] [id number] Scanning, Provider Social History Tobacco Use Types Packs/Day Years Used Date Smoking Tobacco: Never Smokeless Tobacco: Never Alcohol Use Standard Drinks/Week Comments No 0 (1 standard drink = 0.6 oz pur e alcohol) Sex and Gender Information Value Date Recorded Sex Assigned at Not on file 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
--- OUTSIDE RECORDS SUMMARY | 2024-12-14 10:14 | XMS_ITS | Clinical Summary ---
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
--- OUTSIDE RECORDS SUMMARY | 2024-12-14 10:14 | XMS_ITS | Encounter Summary ---
Author Organization [facility] Healthcare Address [address] [place] [address] Care Team Providers Care Pilot Fuel Engineer Name Role Phone Gunnar Bahena MD Primary Care Provide r Encounter Details Date Type Department Care Team (Late st Contact Info) Description 12/02/2023 Orders Only [facility] Health Information Management [address] [place] [id number] Scanning, Provider Social History Tobacco Use Types Packs/Day Years Used Date Smoking Tobacco: Never Smokeless Tobacco: Never Alcohol Use Standard Drinks/Week Comments No 0 (1 standard drink = 0.6 oz pur e alcohol) Sex and Gender Information Value Date Recorded Sex Assigned at Not on file 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
== END 2024-12-14 09:21 | disposition home or self-care (01) ==
PROVIDERS: PCP Emergency Medicine; Visit Provider Urology
DX: N28.89 Other specified disorders of kidney and ureter (principal)
CPT/HCPCS: 74183; A9577

== ENCOUNTER 2025-01-01 10:48 | Outpatient (CLI) | payer MEDICARE, OTHER, SELFPAY ==
[2025-01-01 11:31] LABS: Add Urine Microscopic? NO; Appearance Urine Clear (Clear); Glucose Urine UA Negative (Negative); Leukocyte Esterase Ur Negative LEU/UL (Negative); Nitrate Urine Negative (Negative); Specific Grav Ur 1.012 (1.001-1.035)
[2025-01-01 11:44] LABS: Alanine Aminotransferase 14 U/L (6-50); Albumin Level 4.3 g/dL (3.5-5.1); Alkaline Phosphatase 89 U/L (38-126); Anion Gap 8 mmol/L (4-12); Aspartate Amino Transferase 24 U/L (17-59); Bilirubin,Total 1.5 mg/dL (0.2-1.3); Blood Urea Nitrogen 8 mg/dL (9-20); Calcium 9.0 mg/dL (8.4-10.2); Carbon Dioxide 26 mmol/L (22-30); Chloride 102 mmol/L (98-107); Cholesterol 120 mg/dL (0-200); Estimated Glomerular Filt Rate > 60; Glucose 112 mg/dL (65-110); HDL Direct 38 mg/dL; Sodium 136 mmol/L (137-145); Total Protein 7.1 g/dL (6.3-8.2); Triglycerides 123 mg/dL (<150)
[2025-01-01 11:52] LABS: Potassium 4.4 mmol/L (3.4-5.0)
--- OUTSIDE RECORDS SUMMARY | 2025-01-01 12:04 | XMS_ITS | Clinical Summary ---
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 Essential hypertension 05/15/2014 Overview (06/05/2016): Essential hypertension Adiposity 05/15/2014 Overview (06/05/2016): Obesity Resolved Problems Problem Noted Date Diagnosed Date Resolved Date Dyslipidemia 08/11/2016 03/21/2020 Encounters Date Type Department Care Team Description 11/15/2024 8:15 AM CDT Office Visit [facility] Cardiology [address] [place] [address] Walker Irene MD Coronary artery disease of gray[place] artery of grayling heart with stable angina pectoris (Primary Dx); [...] on file 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 Gender Identity Not on file Sexual Orientation Not on file Last Filed Vital Signs Vital Sign Reading [...] 8:11 AM CDT Coronary artery disease of grayling artery of grayling heart with stable angina pectoris Preop examination from Last 3 Months Results * ECG 12 lead (11/15/2024 8:11 AM CDT) us Walker Irene MD ECG ORDERABLES Edited Re sult - Final from Last 3 Months Insurance MEDICARE [facility] MEDICARE [facility] Care Teams Cell Technician Relationship Specialty Start Date End Date Gunnar Bahena MD [address] [place] [address] PCP - General 05/29/16
--- OUTSIDE RECORDS SUMMARY | 2025-01-01 12:04 | XMS_ITS | Data Portability ---
Author Organization [place] - [place] [employer] [facility], Main Office Address [address] [place] [address] Care Team Providers Care Clinical Laboratory Aides Teacher Name Role Phone GALLITO PARRY Primary Care Provider [phone] GALLITO PARRY Referring Provider Assessment Encounter Date Assessment Date Assessment LastModified by Organization Details LastModified Time 12/28/2023 12/28/2023 The patient has severe primary [...] difficulties or questions. 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 We talked about treatment options today in detail he is not interested in total knee arthroplasty he would rather get by with conservative measures. At his request under sterile conditions I [...] further problems difficulties or questions. Not available 12/26/2024 10:07:59 Plan of Treatment Reminders Order Date Submit Date Provider Last Modified By Organization Details Last Modified Time Details Appointments Any 5 2025 08:00A MENDOZA Thompson Not available Not available Not available Lab None recorded. Referral None recorded. Procedures injection /aspirati on joint/bur sa (PROC) 2024 025 [email or web address] In-Office Order, Internal Use Only DO Not Attach Compendium DO Not Attach Compendium, Do Not Delete/merge, [id number] 12/26/2024 09:18:03 injection /aspirati on joint/bur sa (PROC) 2024 025 [email or web address] In-Office Order, Internal Use Only DO Not Attach Compendium DO Not Attach Compendium, Do Not Delete/merge, [id number] 09/22/2024 10:38:26 injection /aspirati on joint/bur sa (PROC) 2024 025 [email or web address] In-Office Order, Internal Use Only DO Not Attach Compendium DO Not Attach Compendium, Do Not Delete/merge, [id number] 06/23/2024 11:41:19 injection /aspirati on joint/bur sa (PROC) 2024 025 [email or web address] In-Office Order, Internal Use Only DO Not Attach Compendium DO Not Attach Compendium, Do Not Delete/merge, [id number] 03/30/2024 10:56:50 injection /aspirati on joint/bur sa (PROC) 2023 024 [email or web address] In-Office Order, Internal Use Only DO Not Attach Compendium DO Not Attach Compendium, Do Not Delete/merge, 12/28/2023 14:23:35 Surgeries None recorded. Imaging XR, knee 2024 025 [email or web address] [facility] [place], [address], [place], [address], 12/26/2024 11:41:36 XR, knee 2023 024 [email or web address] [facility] [place], [address], [place], [address], 12/28/2023 14:55:40 Medication Orders bupivacai ne HCl 0.5 % (5 mg/mL) injection solution [email or web address] [facility], [address], [place], [id number], 12/26/2024 09:53:44 Kenalog 10 mg/mL suspensio n for injection 2024 025 [email or web address] [facility] #14391, [address], [place], [id number], 12/26/2024 09:53:44 bupivacai ne HCl 0.5 % (5 mg/mL) injection solution 2024 025 [email or web address] [facility] #12849, [address], [place], [id number], 09/22/2024 12:55:01 Kenalog 10 mg/mL suspensio n for injection 2024 025 [email or web address] [facility] #08655, [address] [facility], [place], [place], [id number], 09/22/2024 12:55:01 bupivacai ne HCl 0.5 % (5 mg/mL) injection solution [address] [facility] #34873, [address], [place], [id number], 06/23/2024 12:27:02 Kenalog 10 mg/mL suspensio n for injection [address] [facility] #14448, [address], [place], [id number], 06/23/2024 12:27:02 bupivacai ne HCl 0.5 % (5 mg/mL) injection solution 2024 025 [email or web address] [facility] #27522, [address], [place], [id number], 03/30/2024 11:27:35 Kenalog 10 mg/mL suspensio n for injection 2024 025 [email or web address] [facility] #04582, [address], [place], [id number], 03/30/2024 11:27:35 bupivacai ne HCl 0.5 % (5 mg/mL) injection solution 2023 024 [email or web address] [facility] #39286, [address] [facility], [place], [place], [id number], 12/28/2023 14:55:40 Kenalog 10 mg/mL suspensio n for injection 2023 [email or web address] [facility] #59560, [address], [place], [place], [id number], 12/28/2023 14:55:40 Patient TargetsNo targets recorded. Patient InstructionsNo instructions recorded. Reason for Referral None Reported. Results Created Date Observation Date Name Description Value Unit Range Abnormal Flag Note LastModifiedBy Organization Detail LastModifiedTime 12/28/19 24 XR, knee No observ ation record ed. [email or web address] [facility] [place] [address], [place], [address], 12/28/2023 14:43:58 12/27/19 25 XR, knee No observ ation record ed. [email or web address] [facility] [place] [address], [place], [address], 12/26/2024 10:08:44 Result Notes None recorded. Problems Name Problem SNOMED Code Status Onset Date Resolution Date Notes Provider Name and Address Organization Details Recorded Time Localized, primary osteoarthr itis of the pelvic region and thigh 235861281 Active Not Available [facility] 3 13:30:41 Osteoarthr itis of hip 061626707 Active Not Available [employer] 3 13:30:41 Osteoarthr itis of knee 939657326 Active Not Available [employer] 3 13:30:41 Follow-up orthopedic assessment 946993390 Active Not Available [facility] 3 13:30:41 Osteoarthr itis 768968689 Active Not Available [facility] 3 13:30:41 Pain of hip region 55591473 Active Not Available [facility] 3 13:30:41 Bilateral osteoarthr itis of knees 1208858327521 07 Active 2021 Not Available [employer] 3 13:30:41 Osteoarthr itis of right knee joint 3648433039956 00 Active [address] [facility], [address] [place] [address], [place], [address] , [place] [facility] [employer] [facility] 5 10:49:07 Pain of left hip joint 1216312467204 00 Active 2022 Shelia Sheridan CNA null, [place] [facility] [employer] 3 09:01:15 Pain of right knee joint 8005936698708 00 Active [address] [facility], [facility] [address], [place], [address] , [place] [facility] 3 09:38:15 Problem Notes None recorded. Procedures Surgical History Date Name Laterality Status Provider Name and Address Organization Details Recorded Time 5 Hernia Surgery completed Shelia Sheridan VETERINARY BACTERIOLOGIST [place] [facility] [employer] 12/26/2024 09:42:12 Hip surgery completed Shelia Fatimah, VETERINARY BACTERIOLOGIST [place] [facility] [place] [facility] 12/28/2023 14:18:03 Bypass completed Shelia Sheridan VETERINARY BACTERIOLOGIST [place] [facility] 12/28/2023 14:18:24 Imaging Results None recorded. Procedure Notes None recorded. Medical Equipment None Reported. Allergies Allergen ID Allergen Name Allergen Category Reaction Reaction Severity Criticality Documentation Date Start Date Code Code System Note Provider Name and Address Organization Details Recorded Time 80409 aspirin medicatio n Not available Not available Not available 04/29/2022 1191 RxNorm ulcer s Shelia Sheridan VETERINARY BACTERIOLOGIST null, [place] [facility] [employer] 4 14:16:24 Medications Name Sig Start Date Stop [...] hydrocodone 5 mg-acetamin ophen 325 mg tablet TAKE 1 TABLET BY MOUTH EVERY 4 HOURS NEEDED FOR PAIN 12/26 completed Not Available Not Available Not Available bupivacaine HCl 0.5 % (5 mg/mL) injection solution Take 20 mg by injection route. 2024 active Not Available [...] Not Available No t Available ciprofloxac in 250 mg tablet TAKE 1 TABLET BY MOUTH TWICE DAILY 12/23 completed Not Available Not Available Not Available ciprofloxac in 500 mg tablet 04/11 completed Not Available Not Available Not Available sulfamethox azole 800 mg-trimetho prim 160 mg tablet TAKE 1 TABLET BY MOUTH TWICE DAILY 12/23 completed Not Available Not Available Not Available peg-electro lyte solution 420 gram oral [...] Kenalog 10 mg/mL suspension for injection Take 20 mg by injection route. 2024 active [facility]: 0003- 0494- 20 Not Available Not Available Not Available pantoprazol e 40 mg tablet,salvador yed release TAKE 1 TABLET BY MOUTH DAILY AT BEDTIME FOR 3 MONTHS active Not Available Not Available No t [...] Not Available Not Available No t Available oxycodone 5 mg tablet TAKE 1 TABLET BY MOUTH EVERY 6 HOURS NEEDED 12/26 completed Not Available Not Available Not Available moxifloxaci n 0.5 % eye drops [...] administe red by the provider 11/06 completed [facility]: 0409- 4276- 17 Not Available Not Available [...] %) injection solution in office 12/27 completed [facility] 32748 -064- 01 Not Available Not Available Not Available Fluvirin 5671-3625 45 mcg (15 mcg x 3)/0.5 mL intramuscul ar suspension INJECT 0.5 ML INTRAMUSC ULARLY DIRECTED. 11/21 completed Not Available Not Available Not Available Fluzone High-Dose 2014- (PF) 180 mcg/0.5 mL intramuscul ar syringe 11/21 completed Not Available Not Available Not Available Fluzone High-Dose 0846-6374 (PF) 180 mcg/0.5 mL intramuscul ar syringe ADM 0.5ML IM UTD 11/21 completed Not Available Not Available Not Available Fluzone High-Dose 0545-3019 (PF) 180 mcg/0.5 mL intramuscul ar syringe [...] Not Available Not Available Fluzone High-Dose Quad 2020-21 (PF) 240 mcg/0.7 mL IM syringe PHARMACIS T ADMINISTE RED IMMUNIZAT ION ADMINISTE RED AT TIME OF DISPENSIN G 12/27 completed Not Available Not Available Not Available Vitals Date Recorded Body height Body mass index (BMI) Body weight Provider Name and Address Organization Details Last Updated DateTime 03/30/2024 182.88 cm 27.1 kg/m2 95629.47 g Shelia Fatimah, [facility] [employer] 03/30/2024 10:54:44 Date Recorded Body height Body mass index (BMI) Body weight Provider Name and Address Organization Details Last Updated DateTime 06/23/2024 182.88 cm 28.5 kg/m2 06800.4 g Shelia Fatimah, [facility] [employer] [facility] 06/23/2024 11:37:59 Date Recorded Body height Body mass index (BMI) Body weight Pain severity - 0-10 verbal numeric rating [Score] - Reported Provider Name and Address Organization Details Last Updated DateTime 09/22/2024 182.88 cm 27.8 kg/m2 99271.44 g Davonte Duff [facility] [employer] [facility] 09/22/2024 10:32:32 Date Recorded Body height Body mass index (BMI) Body weight Provider Name and Address Organization Details Last Updated DateTime 12/26/2024 182.88 cm 27.1 kg/m2 90911.47 g Shelia Sheridan [facility] [employer] [facility] 12/26/2024 09:41:00 Date Recorded Body height Body mass index (BMI) Body weight Provider Name and Address Organization Details Last Updated DateTime 12/28/2023 182.88 cm 27.1 kg/m2 37812.47 g Shelia Fatimah, [facility] [employer] [facility] 12/28/2023 14:15:57 Social History Question Answer Notes LastModified by Organizat ion Details LastModified Time Tobacco Smoking Status Never Smoker Not Available [facility] 04/29/2022 13:29:45 What Was The Date Of Your Most Recent Tobacco Screening? 12/26/2024 [email or web address] Information not available 12/26/2024 How Much Tobacco Do You Smoke? No [id number] Information not available 04/29/2022 Sex: Unknown Functional Status Question Answer Note LastModified by Organizat ion Details LastModified Time What is your level of alcohol consumption? None [id number] Information not available 04/29/2022 Mental Status None recorded. Family History Relationship Description Onset Age of this Age Resolved Age Notes LastModified by Organization Details LastModified Time Father Heart disease [id number] [id number] Not available 04/29/2022 13:29:49 Father Hypertensive disorder [id number] Not available 04/29/2022 13:29:49 Mother Heart disease [id number] Not available 04/29/2022 13:29:49 Unspecified Relation Diabetes mellitus [id number] Not available 04/29/2022 13:29:49 Medical History Condition Response ARTHRITIS Y ULCERS Y USE OF BLOOD THINNERS Y VASCULAR DISEASE Y DIABETES, TYPE Y HEART DISEASE/HEART PROBLEMS Y URINARY/BLADDER/KIDNEY PROBLEMS Y CORONARY ARTERY DISEASE (CAD) Y HYPERTENSION Y Past Encounters Encounter ID Performer Location Encounter Start Date Encounter Closed Date Diagnosis/Indication Diagnosis SNOMED-CT Code Diagnosis ICD10 Code Diagnosis IMO Codes Diagnosis Note [id number] MENDOZA La [facility] [place] [address] [facility] [address] [place] [address] 08/22/2020 00:00:00 08/22/2020 09:27:51 [id number] Berlin Alexander MD [facility] [place] [address] [facility] [address] [place] [address] 12/19/2020 00:00:00 12/19/2020 09:18:11 [id number] Berlin Alexander MD [facility] [place] [address] [facility] [address] [place] [address] 12/26/2020 00:00:00 12/26/2020 09:58:58 [id number] Berlin Alexander MD [facility] [place] [address] [facility] [address] [place] [address] 01/02/2021 00:00:00 01/02/2021 10:11:11 [id number] Berlin Alexander MD [facility] [place] [address] [place] [address] 02/03/2021 00:00:00 02/03/2021 09:48:16 [id number] Berlin Alexander MD [facility] [place] [address] [place] [address] 05/05/2021 00:00:00 05/05/2021 09:39:05 [id number] Berlin Alexander MD [facility] [place] [address] [place] [address] 08/05/2021 00:00:00 08/05/2021 14:18:12 [id number] Berlin Alexander MD [facility] [place] [address] [place] [address] 11/06/2021 00:00:00 11/06/2021 09:32:09 [id number] Berlin Alexander MD [facility] [place] [address] [place] [address] 12/18/2021 00:00:00 12/18/2021 09:16:06 [id number] Berlin Alexander MD [facility] [place] [address] [place] [address] 12/25/2021 00:00:00 12/25/2021 09:12:09 [id number] Berlin Alexander MD [facility] [place] [address] [place] [address] 01/01/2022 00:00:00 01/01/2022 09:08:47 [id number] Berlin Alexander MD [facility] [place] [address] [place] [address] 03/19/2022 00:00:00 03/19/2022 09:43:54 [id number] Berlin Alexander MD [facility] [place] [address] [place] [address] 06/01/2022 08:44:07 06/01/2022 10:39:44 Osteoarthritis of right knee joint 2491762410 12165 M17.11 Pain of le ft hip joint 6472896549 49486 M25.552 [id number] Berlin Alexander MD [facility] [place] [address] [place] [address] 06/18/2022 08:57:35 06/18/2022 09:56:46 Osteoarthritis of right knee joint 2569610465 78783 M17.11 Pain of le ft hip joint 1338389083 17140 M25.552 [id number] Berlin Alexander MD [facility] [place] [address] [place] [address] 09/17/2022 08:56:31 09/17/2022 09:43:27 Osteoarthritis of right knee joint 3156570113 34159 M17.11 Pain of le ft hip joint 9009239792 76980 M25.236 [id number] Anders Lamas MD [facility] [place] [address] [place] [address] 12/24/2022 08:56:06 12/24/2022 09:41:10 Osteoarthritis of knee 960655875 M17.11 Bilateral osteoarthritis of knees 9866710338 38266 M17.0 Pain of ri ght knee joint 8102981159 27393 M25.201 [id number] Anders Lamas MD [facility] [place] [address] [place] [address] 03/25/2023 08:57:38 03/25/2023 15:46:34 Bilateral osteoarthritis of knees 5028725395 55326 M17.0 Osteoarthr itis of knee 400227047 M17.11 Pain of ri ght knee joint 2335796589 91020 M25.264 [id number] Kulwant Burks MD [facility] [place] [address] [place] [address] 06/24/2023 09:01:30 06/24/2023 09:35:26 Bilateral osteoarthritis of knees 1325300094 72807 M17.0 Osteoarthr itis of knee 573540443 M17.11 Pain of ri ght knee joint 2046472146 13796 M25.123 [id number] Kulwant Burks MD [facility] [place] [address] [place] [address] 09/27/2023 08:49:35 09/27/2023 09:35:02 Pain of right knee joint 9858485669 40766 M25.561 Osteoarthr itis of right knee joint 0309092651 54151 M17.11 [id number] Kulwant Burks MD [facility] [place] [address] [place] [address] 12/28/2023 13:56:05 12/28/2023 14:41:17 Osteoarthritis of right knee joint 5137003437 99236 M17.11 Pain of ri ght knee joint 5844373147 21709 M25.441 [id number] Kulwant Burks MD [facility] [place] [address] [place] [address] 03/30/2024 10:52:45 03/30/2024 11:02:11 Osteoarthritis of right knee joint 3200941606 88224 M17.11 Pain of ri ght knee joint 4417121698 87608 M25.380 [id number] Kulwant Burks MD [facility] [place] [address] [place] [address] 06/23/2024 11:35:14 06/23/2024 11:48:52 Osteoarthritis of right knee joint 9979926406 24416 M17.11 Pain of ri ght knee joint 6089359721 28591 M25.228 [id number] Kulwant Burks MD [facility] [place] [address] [place] [address] 09/22/2024 10:24:32 09/22/2024 10:55:06 Pain of right knee joint 8195500703 14472 M25.561 Osteoarthr itis of right knee joint 5239858390 55808 M17.11 [id number] Kulwant Burks MD [facility] [place] [address] [place] [address] 12/26/2024 09:13:21 12/26/2024 11:41:36 Osteoarthritis of right knee joint 9253073071 73208 M17.11 [id number] Pain of ri ght knee joint 7626967151 67358 M25.561 Health Concerns Section Related Observation LastModified by Organization Detai ls LastModified Time None Recorded Concern Status LastModified by Organization Details LastModified Time None Recorded Advance Directives Directive None Recorded Payers Insurance Date Sequence Insurance Name Policy Number Policy Shay Covered Member ID Shay Member ID Guarantor Name 12/26/2024 1 [place] Jesse Churchill [id number] Jesse Stevens Kerline 12/29/2024 2 [facility] [id number] Jesse Churchill [id number] Jesse Stevens Kerline 12/26/2024 2 [facility] (MEDICARE REPLACEMENT/A DVANTAGE - PPO) [id number] Jesse Stevens Churchill [id number] Jesse G Churchill Notes Date Note Type Note Provider Name and Address Organization Details Recorded Time 12/28/2023 text/html Patient returns with right knee [...] since his last x-rays. MENDOZA La [address] [facility], [facility] [address], [place], [address], [place] [facility] [employer] 12/28/2023 14:44:19 03/30/2024 text/html Patient returns for [...] infection he has advanced primary osteoarthritis and ilgk-lt-ehjb in the medial compartment with varus deformity. It limits what he can do some days he would like another shot of cortisone. MENDOZA La [address], [place], [address], [employer] [facility] [employer] 03/30/2024 11:03:25 06/23/2024 text/html patient returns for a right knee injection it has been 3 months since his last cortisone injection. This gives him great relief. He is 84 years of age he is not interested in total knee arthroplasty he would rather get by with conservative measures because this worked so well for him. He has severe primary osteoarthritis with gnss-ta-igsr changes in medial compartment and varus deformity. A shot of cortisone gives him basically 3 months relief at a time recently his knee pain has worn off he would like another shot today denies any new problems with the right knee. MENDOZA La [address], [place], [address], [employer] [facility] [employer] 06/23/2024 11:54:28 09/22/2024 text/html the patient returns [...] have total knee arthroplasty. He has severe mtvq-wl-gpis changes in the medial compartment with varus deformity. He would like another shot today. MENDOZA La [address], [place], [address], [employer] [facility] [employer] 09/22/2024 10:49:37 12/26/2024 text/html the patient returns with right knee pain he has chronic severe primary osteoarthritis he comes in every few months for cortisone injections. It has been more than a year since his last new x-rays we are getting new updated x-rays today. He is having aching pain in the right knee he states it does limit his daily activities the pain is about a 4 on a scale of 1-10 today. Over the years he has slowed down because of his knee pain he likes to go fishing and be active but can not do this as much as he would like. He does take blood thinners daily so he can not take NSAIDs. He gets by with conservative measures such as cortisone he would like to repeat that today. New past medical history sheet was reviewed and signed on the intake sheet of today's date drug allergies current medications family social history previous surgical history 10 point review of systems was reviewed and discussed in detail today with the patient. He recently underwent a right sided hernia repair. He is doing well with this this is well healed. MENDOZA La [address] [facility], [facility] [address], [place], [address], [place] [facility] [employer] 12/26/2024 10:09:23
--- OUTSIDE RECORDS SUMMARY | 2025-01-01 12:04 | XMS_ITS | Encounter Summary ---
Author Organization [facility] Healthcare Address [address] [place] [address] Care Team Providers Care Neighborhood Aide Name Role Phone Gunnar Bahena MD Primary Care Provide r Encounter Details Date Type Department Care Team (Late st Contact Info) Description 04/06/2024 Orders Only [facility] Health Information Management [address] [place] [address] Scanning, Provider Social History Tobacco Use Types Packs/Day Years Used Date Smoking Tobacco: Never Smokeless Tobacco: Never Alcohol Use Standard Drinks/Week Comments No 0 (1 standard drink = 0.6 oz pur e alcohol) Sex and Gender Information Value Date Recorded Sex Assigned at Not on file 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
--- OUTSIDE RECORDS SUMMARY | 2025-01-01 12:04 | XMS_ITS | Encounter Summary ---
Author Organization [facility] Healthcare Address [address] [place] [address] Care Team Providers Care Dog Day Care Attendant Name Role Phone Gunnar Bahena MD Primary Care Provide r Encounter Details Date Type Department Care Team (Late st Contact Info) Description 12/02/2023 Orders Only [facility] Health Information Management [address] [place] [address] Scanning, Provider Social History Tobacco Use Types Packs/Day Years Used Date Smoking Tobacco: Never Smokeless Tobacco: Never Alcohol Use Standard Drinks/Week Comments No 0 (1 standard drink = 0.6 oz pur e alcohol) Sex and Gender Information Value Date Recorded Sex Assigned at Not on file 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
== END 2025-01-01 10:49 | disposition home or self-care (01) ==
PROVIDERS: PCP Emergency Medicine; Visit Provider Emergency Medicine
DX: E78.5 Hyperlipidemia, unspecified (principal); N39.0 Urinary tract infection, site not specified; E55.9 Vitamin D deficiency, unspecified
CPT/HCPCS: 36415; 80053; 80061; 81003; 82306

== ENCOUNTER 2025-01-10 03:03 | Emergency (ER) | payer MEDICARE, OTHER, SELFPAY ==
--- NOTE | ~2025-01-10 | CT_ITS ---
CT abdomen pelvis w con Clinical History: urin freq, incomplete void, penile/meatus pain . Comparison: MR abdomen 12/14/2024 CT abdomen pelvis 11/01/2024 Technique: Axial images lung bases to symphysis pubis 100 mL Omnipaque 350 Coronal, sagittal reformats CT images acquired with automatic exposure control for dose reduction DLP: 1264 which mGy-cm Findings: Lung bases: Clear. Visualized heart and pericardium: Unremarkable. Liver: Several small cysts. Gallbladder: Stones. Spleen: Unremarkable. Pancreas: Unremarkable. Adrenal glands: Unremarkable. Kidneys: Right kidney- No hydronephrosis. No renal stones. Large exophytic hematoma slightly smaller. Several cysts. Left kidney- No hydronephrosis. No renal stones. A few small cysts. Distal esophagus/stomach: Unremarkable. Small bowel loops: Normal caliber and wall thickness. Colon: Diverticula. Normal caliber and wall thickness. Normal RLQ appendix. Nodes: No enlarged nodes. Peritoneum: No ascites. No free air. Hip prosthesis pelvic streak artifact. Urinary bladder: Unremarkable. Prostate: Unremarkable. Bones: No acute bony abnormality. Soft tissues: Right inguinal hernia repair, with mesh along pelvic extraperitoneal space. Aorta: No aneurysm or dissection. Atherosclerotic disease. IVC: Unremarkable. Main portal vein/SMV/splenic vein: Patent. IMPRESSION: 1. No acute abnormality. 2. No renal stones or hydronephrosis. 3. Large exophytic hematoma right kidney slightly decreased in size. Reviewed, dictated and finalized at location R. STRIAL MANAGEMENT TEACHER
--- NOTE | 2025-01-10 03:21 | ED.MALEGU ---
HPI - Male Genitourinary General Chief complaint: Urogenital-Male Stated complaint: urinary symptoms Time Seen by Provider: 01/10/25 03:15 Source: patient and other (presents with the of a friend) Mode of arrival: ambulatory Limitations: no limitations History of Present Illness HPI Narrative: Patient presents with report of urinary issues. He is experiencing pain at his urethral meatus and throughout describing it as the feeling of a red hot poker. Denies any rectal pain. He reports having to urinate several times per hour but then with a sensation of incomplete voiding. He denies any hematuria. He reports having hernia surgery 5-6 weeks ago had some abdominal pain after that for few days but no abdominal pain ever since that resolved in none presently. He also reports a history of bypass surgery and is medications states makes his stool hard does not believe he is on any opiates. He says because of this precluded he towards constipation he takes milk of magnesia and this prevents him from being constipated. Last bowel movement yesterday. Denies any bloody stools. Denies any fevers or chills. He has had prostate issues for years and sees Dr. Govea from [facility] for this. He has a history of BPH for which he is on finasteride. He reports when he is pain it seems like it is at the tip though possibly throughout the penis. He denies any other penile discharge. No hematuria. Denies any scrotal pain or swelling. Related Data Home Medications ?Medication ?Instructions ?Recorded ?Confirmed ?Last Taken ?Type clopidogrel 75 mg tablet 75 mg PO DAILY 02/01/19 01/01/25 10/05/24 History Held on 10/08/24. Instructions: Resume on 10/29/24. Do not resume until instructed to do so by your primary doctor. cetirizine 10 mg tablet (Zyrtec) 10 mg PO HS 08/02/19 01/01/25 10/05/24 History finasteride 5 mg tablet 5 mg PO HS 11/03/19 01/01/25 10/05/24 History atorvastatin 40 mg tablet 40 mg PO QPM 10/06/24 01/01/25 10/05/24 History tamsulosin 0.4 mg capsule 0.4 mg PO QPM 10/06/24 01/01/25 10/05/24 History acetaminophen 650 mg 1,300 mg PO Q8H PRN pain 11/16/24 01/01/25 Unknown History tablet,extended release (8 Hour Pain Reliever) amlodipine 5 mg-valsartan 160 mg 1 tablet PO QAM 11/16/24 01/01/25 Unknown History tablet metoprolol tartrate 50 mg tablet 50 mg PO BID 11/16/24 01/01/25 11/28/24 History isosorbide mononitrate 30 mg 30 mg PO HS 11/28/24 01/01/25 Unknown History tablet,extended release 24 hr Allergies Allergy/AdvReac Type Severity Reaction Status Date / Time aspirin AdvReac Intermediate Abdominal Verified 01/10/25 03:40 Pain PMFSH Past Medical History Medical History BPH (benign prostatic hyperplasia) SOB (shortness of breath) Gastric ulcer due to nonsteroidal antiinflammatory drug (NSAID) therapy Atherosclerosis of coronary artery bypass graft(s) without angina pectoris Chronic pain of both shoulders Vitamin D deficiency PUD (peptic ulcer disease) Primary osteoarthritis of both hips Polyosteoarthritis, unspecified Pain in right shoulder Other chronic pain Need for pneumococcal vaccine Atypical mole GERD (gastroesophageal reflux disease) CAD (coronary artery disease) Surgical History Surgical History H/O heart bypass surgery Hx of inguinal hernia repair open rt ing hernia repair w/mesh Family History Family History Father Hypertension, Onset Age: 76 Family history of cardiovascular disease, Onset Age: 76 Mother Family history of cardiovascular disease, Onset Age: 68 Social History Social History Second hand tobacco smoke exposure: Yes Alcohol intake: former Substance use: never Substance use type: does not use Do You Feel Safe in your Home?: Yes Lack of Transportation: No Lack of Food: Never True Current Housing: I Do Not Have Housing Concerned About Future Housing: No Difficulty Paying Gas/Electric Bills: No Difficulty Paying for Meds: No Currently Unemployed: No Education: High School Diploma/GED Difficulty w/ Childcare or Family Care: No Living arrangements: alone Occupation/Education: 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 HEAD: Normocephalic, atraumatic. EYES: Non injected, non icteric ENT: Nares clear, no rhinorrhea or epistaxis. Gross auditory acuity intact. NECK: Supple. No meningismus. CHEST: Speaking in full sentences. No respiratory distress. Well healed midline surgical scar. HEART: Regular rate and rhythm. . ABDOMEN: Soft, nondistended. No rigidity or guarding. Not peritoneal. No tenderness to palpation throughout. EXTREMITIES: Normal range of motion. No lower extremity edema. SKIN: Warm, dry, no rash. : normal male genitalia, circumcised. No penile discharge. No tenderness to palpation the penis or scrotum. No scrotal edema. No balanitis. NEURO: No focal deficits. Alert and oriented. Answering questions. Following commands. Normal speech without aphasia or dysarthria. PSYCH: Normal mood and affect. Course Vital Signs Vital signs: Vital Signs Temperature 98.0 F 01/10/25 03:22 Pulse Rate 77 01/10/25 03:22 Respiratory Rate 16 01/10/25 03:22 Blood Pressure 102/82 01/10/25 03:22 Pulse Oximetry 95 01/10/25 03:22 Oxygen Delivery Room Air 01/10/25 03:22 Temperature 98.0 F 01/10/25 03:22 Pulse Rate 67 01/10/25 07:25 Respiratory Rate 16 01/10/25 07:25 Blood Pressure 156/89 H 01/10/25 07:25 Pulse Oximetry 96 01/10/25 07:25 Oxygen Delivery Room Air 01/10/25 03:22 MDM - Male Genitourinary MDM Narrative Medical decision making narrative: Patient presents with report of urinary issues. Pain in his penis, primarily at the urethral meatus. He also has to urinate several times per hour and then has a sensation of incomplete void. In the emergency department they are afebrile with vital signs within normal limits. Patient only 60 mL on bladder scan. There is a note from urology during an admission that notes a renal mass had been identified previously, concern for possible renal cell carcinoma and nephrectomy had been discussed. . Urinalysis unremarkable. Normocytic anemia, stable from previous in fact slightly improved. Normal renal function. CT as below. Patient updated on findings of his workup when he is reassessed at 7:05 a.m.. He reports feeling better. He is still having some pain. Has appointment to see Urology a week from this Wednesday. He had already followed up with a surgeon regarding the mass on his kidney. He reports having undergone cystoscopy previously. DC's with rest of Rx for Pyridium and educated on side effects. Advised to keep urology F/u appointment. Otherwise stable for DC. Differential Diagnosis Differential diagnosis: Likely urinary tract infection, urethritis, prostatitis, acute retention of urine, inguinal hernia and other (constipation; malignancy) Medical Records Attestation: I reviewed the patient's medical records. Lab Data Attestation: I reviewed the patient's lab results. 01/10/25 03:56 01/10/25 04:17 Labs: Lab Results 01/10/25 01/10/25 Range/Units 03:56 04:17 WBC 6.0 (4.5-10.0) K/mm3 RBC 4.44 L (4.6-6.20) M/mm3 Hgb 13.0 L (14.0-18.0) g/dL Hct 40.0 L (42.0-52.0) % MCV 90.1 (80-100) fl MCH 29.3 (26-34) pg MCHC 32.5 (32-36) g/dl RDW 14.5 (11.5-14.5) % Plt Count 201 (150-375) k/mm3 MPV 9.3 (7.4-10.4) fl Immature Gran % (Auto) 0.5 (0-0.5) % Neut % (Auto) 75.9 H (45.5-73.1) % Lymph % (Auto) 12.8 L (18.3-44.2) % [place] % (Auto) 8.7 H (2.6-8.5) % Eos % (Auto) 1.3 (0-4.4) % Baso % (Auto) 0.8 (0.2-1.2) % Lymph # (Auto) 0.76 L (0.9-3.2) K/mm3 [place] # (Auto) 0.5 (0.1-0.6) K/mm3 Eos # (Auto) 0.1 (0-0.3) K/mm3 Baso # (Auto) 0.1 (0.0-0.1) K/mm3 Abs Immat Gran (auto) 0.03 (0.00-0.031) K/mm3 Absolute Neuts (auto) 4.5 (1.3-6.7) K/mm3 Absolute Nucleated RBC 0.000 (0.0-0.012) K/mm3 Band Neutrophils % Not Reportable Nucleated RBC % 0.0 (0.0-0.2) % Platelet Estimate Adequate (Adequate) % Immature Plt Fraction 1.3 (0.9-11.2) % Mary Cells 1+ Schistocytes None seen Sodium 135 L (137-145) mmol/L Potassium 4.0 (3.4-5.0) mmol/L Chloride 104 (98-107) mmol/L Carbon Dioxide 23 (22-30) mmol/L Anion Gap 8 (4-12) mmol/L BUN 9 (9-20) mg/dL Creatinine 0.78 (0.7-1.3) mg/dL Estim Creat Clear Calc 68 ml/min Estimated GFR > 60 (59 - ) Glucose 124 H (65-110) mg/dL Calcium 8.7 (8.4-10.2) mg/dL Urine Color Yellow (Yellow) Urine Appearance Clear (Clear) Urine pH 5.5 (5.0-9.0) Ur Specific [place] 1.013 (1.001-1.035) Urine Protein Negative (Negative) mg/dL Urine Glucose (UA) Negative (Negative) mg/dL Urine Ketones Negative (Negative) mg/dL Ur Blood (Man) Negative (Negative) Urine Nitrate Negative (Negative) Urine Bilirubin Negative (Negative) Urine Urobilinogen 0.2 (<2.0) mg/dL Leukocyte Esterase Rfl Negative (Negative) MARY JO/UL Imaging Data Radiologist's impression: Impressions Abdomen/Pelvis CT 01/10/25 06:46 IMPRESSION: 1. No acute abnormality. 2. No renal stones or hydronephrosis. 3. Large exophytic hematoma right kidney slightly decreased in size. Discharge Plan Discharge Clinical Impression: Urinary frequency, Pain in penis, Normocytic anemia Hematoma of kidney Qualifiers: Encounter type: subsequent encounter Laterality: right Qualified Code(s): S37.011D - Minor contusion of right kidney, subsequent encounter Patient Disposition: Home Condition: Stable Instructions: Antibiotic Form, Nonspecific Urethritis in Men (ED), Anemia (ED), Urinary Urgency and Frequency (DC) Additional Instructions: Pyridium/phenazopyridine can help with the pain you are experiencing. It can discolor your urine and tears (turn them orange). Do not wear contact lenses while taking this medication. Keep your upcoming appointment with Urology. Return to the emergency department any new or worsening symptoms. Drink plenty of water. Patient Language: Occitan Prescriptions: New phenazopyridine [Pyridium] 100 mg tablet 100 mg PO TID PRN (Reason: pain) Qty: 5 0RF Rx Instructions: rec'd first dose in ED 11 AM No Action clopidogrel 75 mg tablet 75 mg PO DAILY Patient Comments: PLAVIX ON HOLD SINCE ~ 10/06/24 AFTER INTERNAL BLEEDING R/T RENAL MASS/HERNIA INJURY. DOCUMENT PREPARER MICROFILMING INSTR TO CONT TO HOLD UNTIL AFTER HERNIA SURGERY 11/28/24 finasteride 5 mg tablet 5 mg PO HS cetirizine [Zyrtec] 10 mg tablet 10 mg PO HS Rx Instructions: Take 1 tablet orally daily; acetaminophen [8 Hour Pain Reliever] 650 mg tablet extended release 1,300 mg PO Q8H PRN (Reason: pain) metoprolol tartrate 50 mg tablet 50 mg PO BID amlodipine-valsartan 5-160 mg tablet 1 tablet PO QAM isosorbide mononitrate 30 mg tablet extended release 24 hr 30 mg PO HS atorvastatin 40 mg tablet 40 mg PO QPM Rx Instructions: TAKE 1 TABLET BY MOUTH DAILY tamsulosin 0.4 mg capsule 0.4 mg PO QPM Rx Instructions: TAKE 1 CAPSULE BY MOUTH DAILY 30 MINUTES AFTER THE SAME MEAL metformin 500 mg tablet See Rx Instructions .ROUTE .COMPLEX Qty: 90 2RF Dose Instruction: TAKE 1 TABLET BY MOUTH DAILY Patient Comments: qam Rx Instructions: TAKE 1 TABLET BY MOUTH DAILY pantoprazole 40 mg tablet,delayed release (DR/EC) 40 mg PO HS 90 Days Qty: 90 3RF Rx Instructions: TAKE 1 TABLET BY MOUTH DAILY Follow-up/Referrals: Gunnar Bahena MD [Primary Care Provider, Internal Medicine] Sandeep Govea MD [Physician, Urology] Time of Disposition: 07:12
[2025-01-10 03:22] VITALS: BP 102/82; PULSE 77; RESP 16; TEMP 36.7; O2SAT 95
--- OUTSIDE RECORDS SUMMARY | 2025-01-10 03:24 | XMS_ITS | Clinical Summary ---
Author Organization [facility] [address] Address [address] [place] [address] Care Team Providers Care Java Lead Name Role Phone Gunnar Bahena MD Primary [...] artery disease of n ative artery of [place] heart with stable angina pectoris 07/05/2017 Hyperlipidemia LDL goal <70 12/29/2016 History of bleeding ulcers 08/11/2016 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 Essential hypertension 05/15/2014 Overview (06/05/2016): Essential hypertension Adiposity 05/15/2014 Overview (06/05/2016): Obesity Resolved Problems Problem Noted Date Diagnosed Date Resolved Date Dyslipidemia 08/11/2016 03/21/2020 Encounters Date Type Department Care Team Description 01/09/2025 Orders Only [facility] Cardiology [address] [facility] [address] [place] [phone] ProviderMonik MD 11/15/2024 8:15 AM CDT Office Visit [facility] Medical [facility] Cardiology [address] [place] [phone] Walker Irene MD Coronary artery disease of [place] artery of [place] heart with stable angina pectoris (Primary Dx); [...] on file 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 Gender Identity Not on file Sexual Orientation [...] Date/Time Associated Diagnosis Comments LIPID PANEL Routine 12/18/2024 10:45 AM CDT ECG 12-LEAD Routine 11/15/2024 8:11 AM CDT Coronary artery disease of [place] artery of [place] heart with stable angina pectoris Preop examination from Last 3 Months Results * (ABNORMAL) Lipid panel (12/18/2024 10:45 AM CDT) SCRIBED Cholesterol, Total 107 30 - 199 mg/dL [facility] SCRIBED Triglycerides 77 <=149 mg/dL [facility] SCRIBED HDL 39(A) >=40 mg/dL [facility] SCRIBED LDL 52 <=129 mg/dL [facility] Scribed Non-HDL Cholesterol [facility] Comment:Not performed by lab . SCRIBED Total Cholesterol/HDL Ratio 107 NONE [facility] Blood Historical Provider LAB BLOOD ORDERABLES Edit ed Result - Final [facility] * ECG 12 lead (11/15/2024 8:11 AM CDT) Walker Irene MD ECG ORDERABLES Edited Re sult - Final from Last 3 Months Insurance MEDICARE [facility] MEDICARE [facility] Care Teams Java Lead Relationship Specialty Start Date End Date Gunnar Bahena MD [address] [place] [address] PCP - General 05/29/16
--- OUTSIDE RECORDS SUMMARY | 2025-01-10 03:24 | XMS_ITS | Encounter Summary ---
Author Organization [facility] Healthcare Address [address] [place] [address] Care Team Providers Care Manager Food Safety Name Role Phone Gunnar Bahena MD Primary Care Provide r Encounter Details Date Type Department Care Team (Late st Contact Info) Description 04/06/2024 Orders Only [facility] Health Information Management [address] [place] [id number] Scanning, Provider Social History Tobacco Use Types Packs/Day Years Used Date Smoking Tobacco: Never Smokeless Tobacco: Never Alcohol Use Standard Drinks/Week Comments No 0 (1 standard drink = 0.6 oz pur e alcohol) Sex and Gender Information Value Date Recorded Sex Assigned at Not on file 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
[2025-01-10 04:06] LABS: Add Urine Microscopic? NO; Appearance Urine Clear (Clear); Glucose Urine UA Negative (Negative); Hematocrit 40.0 % (42.0-52.0); Hemoglobin 13.0 g/dL (14.0-18.0); Immature Granulocyte Percent A 0.5 % (0-0.5); Immature Platelet Fraction Pct 1.3 % (0.9-11.2); Leukocyte Esterase Ur Negative LEU/UL (Negative); Lymphocytes Absolute Auto 0.76 K/mm3 (0.9-3.2); Mean Corpuscular HGB Conc 32.5 g/dl (32-36); Mean Corpuscular Hemoglobin 29.3 pg (26-34); Mean Corpuscular Volume 90.1 fl (80-100); Nitrate Urine Negative (Negative); Nucleated Red Blood Cells Absolute Auto 0.000 K/mm3 (0.0-0.012); Nucleated Red Blood Cells Perc 0.0 % (0.0-0.2); Platelet Count Result 201 k/mm3 (150-375); Red Blood Count 4.44 M/mm3 (4.6-6.20); Specific Grav Ur 1.013 (1.001-1.035); White Blood Count 6.0 K/mm3 (4.5-10.0)
[2025-01-10 04:24] LABS: Burr Cells 1+; Schistocytes None Seen
[2025-01-10] MEDS: PHENAZOPYRIDINE HCL 100 MG TABLET PO (04:47)
[2025-01-10] MEDS: MORPHINE SULFATE (*CRX) 4 MG/ML INJ 2 MG IV PUSH (04:51)
[2025-01-10 04:52] LABS: Anion Gap 8 mmol/L (4-12); Blood Urea Nitrogen 9 mg/dL (9-20); Calcium 8.7 mg/dL (8.4-10.2); Carbon Dioxide 23 mmol/L (22-30); Chloride 104 mmol/L (98-107); Estimated CRCL calculation 68 ml/min; Estimated Glomerular Filt Rate > 60; Glucose 124 mg/dL (65-110); Potassium 4.0 mmol/L (3.4-5.0); Sodium 135 mmol/L (137-145)
[2025-01-10 07:25] VITALS: BP 156/89; PULSE 67; RESP 16; O2SAT 96
== END 2025-01-10 07:25 | disposition home or self-care (01) ==
PROVIDERS: Emergency Provider Student in an Organized Health Care Education/Training Program; PCP Emergency Medicine
DX: N48.89 Other specified disorders of penis (principal); R35.0 Frequency of micturition; D64.9 Anemia, unspecified; N28.89 Other specified disorders of kidney and ureter; I25.10 Atherosclerotic heart disease of native coronary artery without angina pectoris; E55.9 Vitamin D deficiency, unspecified; N40.0 Benign prostatic hyperplasia without lower urinary tract symptoms; M16.0 Bilateral primary osteoarthritis of hip; K21.9 Gastro-esophageal reflux disease without esophagitis; Z95.1 Presence of aortocoronary bypass graft; Z77.22 Contact with and (suspected) exposure to environmental tobacco smoke (acute) (chronic); Z79.02 Long term (current) use of antithrombotics/antiplatelets; Z79.899 Other long term (current) drug therapy; Z79.84 Long term (current) use of oral hypoglycemic drugs
CPT/HCPCS: 36415; 74177; 80048; 81003; 85025; 85055; 96374; 99284; A9270; J2270; Q9967